=== PATIENT | female | born 1955 | race Caucasian/White ===

== ENCOUNTER → 2019-11-15 11:15 | Outpatient (CLI) | payer MEDICARE, SELFPAY ==
--- NOTE | ~2019-11-15 | CT_ITS ---
EXAMINATION: CT abdomen pelvis wo con DATE: 11/15/2019 11:41 INDICATION: Incisional hernia without obstruction or gangrene. TECHNIQUE: Computed tomography (CT) of the abdomen and pelvis was performed without intravenous contr ast. Automated exposure control and iterative reconstruction technique were employed. The dose-length product was 726.23 mGy-cm. COMPARISON: CT abdomen and pelvis 08/25/2017 FINDINGS: The visualized portions of the lung bases demonstrate emphysema and minimal atelectasis. No pleural effusion. The heart size is normal. No pericardial effusion. Calcifications in the liver and spleen are consistent with old granulomatous disease. There are changes of cholecystectomy. The panc reas, adrenal glands, and right kidney are normal. There is a 10 mm stone in left kidney with focal p arenchymal volume loss. There is diverticulosis of the colon without evidence of diverticulitis. Ther e are no dilated loops of bowel. The appendix is normal. There is diastasis of the rectus abdominis m uscles. There is a periumbilical ventral hernia containing fat. There are no pathologically enlarged lymph nodes. There is no free intraperitoneal fluid. There is mild lumbar spondylosis. IMPRESSION: 1. Periumbilical ventral hernia containing fat. Diastasis of the rectus abdominis muscles. Reviewed, dictated and finalized at location A. IMPRESSION: 1. Periumbilical ventral hernia containing fat. Diastasis of the rectus abdomin is muscles.
== END ==
PROVIDERS: PCP Family Medicine; Visit Provider Surgery
DX: K43.2 Incisional hernia without obstruction or gangrene (principal)
CPT/HCPCS: 74176

== ENCOUNTER 2020-03-06 10:09 | Outpatient (CLI) | payer MEDICARE, SELFPAY ==
[2020-03-06 10:55] LABS: Base Excess ABG 5.3 mEq/l (+/-2.0); Fractional Inspired Oxygen 28 %; HCO3 ABG 31.4 mEq/l (22.0-26.0); Oxygen Content ABG 15.6 %vol (16.0-22.0); Oxyhemoglobin 97.9 % THb (90.0-100.0); PCO2 ABG 53.7 mmHg (35.0-45.0); PO2 ABG 157.2 mmHg (80.0-100.0); PO2 FiO2 Ratio Arterial Blood 5.61 %; Total Hemoglobin 11.1 g/dL (12.0-18.0); pH ABG 7.385 (7.350-7.450)
[2020-03-06 10:56] LABS: Device NASAL CANNULA; Site Drawn RIGHT BRACHIAL
== END 2020-03-06 10:10 | disposition home or self-care (01) ==
LOC: ANHPFT 10:12
PROVIDERS: PCP Internal Medicine; Visit Provider Nurse Practitioner Family
DX: J96.11 Chronic respiratory failure with hypoxia (principal); J96.12 Chronic respiratory failure with hypercapnia
CPT/HCPCS: 36600; 82805

== ENCOUNTER → 2021-03-08 03:48 | Outpatient (CLI) | payer MEDICARE, SELFPAY ==
[2021-03-08 22:11] LABS: SARS-CoV-2 RNA PCR Positive
== END ==
PROVIDERS: PCP Internal Medicine; Visit Provider Nurse Practitioner Family
DX: U07.1 COVID-19 (principal)
CPT/HCPCS: C9803; U0003; U0005

== ENCOUNTER 2021-03-13 17:17 | Inpatient (IN) | payer MEDICARE, SELFPAY ==
[2021-03-13] VITALS (24 sets, daily range): BP systolic 127–160; BP diastolic 61–84; PULSE 93–114; RESP 11–28; TEMP 37.1–37.3; O2SAT 92–98
--- NOTE | ~2021-03-13 | XR_ITS ---
EXAMINATION: XR chest 1V portable INDICATION: Shortness of breath, COVID 19 positive TECHNIQUE: Portable AP chest at 2032 hours COMPARISON: 08/20/2018 FINDINGS: There is severe emphysema of the left lung. Patchy opacities are present in the lower lung zones which are superimposed on chronic opacities. There is no pleural effusion or pneumothorax. The cardiomediastinal silhouette is normal. There is enlargement of the main and central pulmonary arteri es, consistent with pulmonary hypertension. IMPRESSION: 1. Bibasilar airspace opacities, likely pneumonia superimposed on severe emphysema. Reviewed, dictated and finalized at location F. STANT DIRECTOR OF SECURITY IMPRESSION: 1. Bibasilar airspace opacities, likely pneumonia superimposed on severe emphys rashel.
--- NOTE | ~2021-03-13 | XR_ITS ---
XR chest 1V portable 03/16/2021 14:11 Indication: Pneumonia. Covid infection. Procedure: AP portable chest Comparison: 03/13/2021 Findings: Heart size normal. There is scarring of the upper lungs bilaterally. There is bullous emphy sema. There are bibasilar infiltrates unchanged which may represent atelectasis or pneumonia. Impression: 1: Stable bibasilar infiltrates which may represent atelectasis or pneumonia. Reviewed, dictated and finalized at location A. ICALS DISTILLER Impression: 1: Stable bibasilar infiltrates which may represent atelectasis or pneumonia.
--- NOTE | ~2021-03-13 | XR_ITS ---
EXAMINATION: XR chest 1V portable EXAM DATE: 03/21/2021 09:03 INDICATION: pneumonia . TECHNIQUE: Portable AP frontal chest x-ray was obtained. Comparison is made to prior examination from 03/16/2021. FINDINGS: Chronic lucent left lung, bullous disease. Bibasilar indistinct reticulation, moderate amou nt of ill-defined edema or pneumonia. Small subpulmonic nonloculated appearing pleural effusions. Car diomegaly. The main, central pulmonary arteries are dilated which can indicate elevated pulmonary art erial pressure, pulmonary arterial hypertension. Bilateral nodular densities, chronic regions of scar ring. No pneumothorax. There are mild bony degenerative changes. IMPRESSION: 1. Persistent moderate amount of basilar edema and/or pneumonia. 2. Cardiomegaly, small pleural effusions. 3. Pulmonary arterial hypertension. 4. Chronic scarring. Reviewed, dictated and finalized at location B. OMER OPERATIONS SPECIALIST
--- NOTE | 2021-03-13 20:22 | ECG_ITS ---
Measurements Intervals [place] Rate: 99 P: 73 RI: 147 QRS: 73 QRSD: 102 T: 80 QT: 350 QTc: 450 Interpretive Statements SINUS RHYTHM BORDERLINE ST-T WAVE ABNORMALITY- ANTEROLAT/INF LEADS BASELINE ARTIFACT- I, II, III, AVR, AVL, AVF, V3-V6 BORDERLINE ECG Electronically Signed On 03-14-2021 6:05:34 [employer]IL [employer]OUT by Rafael Ventura D.O.
[2021-03-13 21:03] LABS: Basophils Percent Auto 0.1 % (0.2-1.2); Eosinophils Percent Auto 0.2 % (0-4.4); Hematocrit 33.4 % (37.0-47.0); Hemoglobin 10.6 g/dL (12.0-15.0); Immature Granulocyte Absolute 0.09 K/mm3 (0.00-0.031); Immature Granulocyte Percent A 0.5 % (0-0.5); Lymphocytes Absolute Auto 1.84 K/mm3 (0.9-3.2); Lymphocytes Percent Auto 11.1 % (18.3-44.2); Mean Corpuscular HGB Conc 31.7 g/dl (32-36); Mean Corpuscular Hemoglobin 29.6 pg (26-34); Mean Corpuscular Volume 93.3 fl (80-100); Mean Platelet Volume 9.3 fl (7.4-10.4); Monocytes Absolute Auto 1.4 K/mm3 (0.1-0.6); Monocytes Percent Auto 8.2 % (2.6-8.5); Neutrophils Absolute Auto 13.2 K/mm3 (1.3-6.7); Neutrophils Percent Auto 79.9 % (45.5-73.1); Platelet Count Result 503 k/mm3 (150-375); Red Blood Count 3.58 M/mm3 (4.2-5.4); Red Cell Distribution Width 12.5 % (11.5-14.5); White Blood Count 16.6 K/mm3 (4.5-10.0)
[2021-03-13 21:14] LABS: Lactic Acid Reflex 0.7 mmol/L (0.7-2.1)
[2021-03-13 21:22] LABS: Alanine Aminotransferase 12 U/L (4-35); Albumin Level 4.1 g/dL (3.5-5.1); Alkaline Phosphatase 108 U/L (38-126); Aspartate Amino Transferase 23 U/L (14-36); Bilirubin,Total 0.6 mg/dL (0.2-1.3); Blood Urea Nitrogen 9 mg/dL (7-17); Calcium 9.1 mg/dL (8.4-10.2); Carbon Dioxide > 40 mmol/L (22-30); Chloride 85 mmol/L (98-107); Estimated CRCL calculation 70 ml/min; Estimated Glomerular Filt Rate > 60; Glucose 125 mg/dL (65-110); Potassium 2.6 mmol/L (3.4-5.0); Sodium 137 mmol/L (137-145)
[2021-03-13 21:46] LABS: D Dimer 0.27 ug/mL (<0.48)
--- NOTE | 2021-03-13 22:07 | ED.GENADULT ---
HPI - General Adult General Chief complaint: Shortness of Breath/Dyspnea Stated complaint: breathing Time Seen by Provider: 03/13/21 21:08 History of Present Illness HPI narrative: Patient is a 5-year-old female who presents emerged department with chief complaint of shortness of breath and cough patient reports she has history of COPD reports that she is normally on 2 L nasal cannula oxygen patient reports that she tested positive for COVID-19 on 27 February. Patient reports that over the last couple of days she has been getting more more short of breath and has been coughing more. Related Data Home Medications Medication Instructions Recorded Confirmed omeprazole 20 mg capsule,delayed 20 mg PO DAILY 02/18/19 10/11/20 release albuterol sulfate 90 mcg/actuation 1 puff INHALATION Q4H PRN 10/19/19 10/11/20 aerosol inhaler Allergies Allergy/AdvReac Type Severity Reaction Status Date / Time No Known Allergies Allergy Verified 10/11/20 13:25 Review of Systems Review of Systems: A 10 system review of systems was completed on the patient and is negative except for what is stated in the HPI. Nursing and ancillary documentation was reviewed. [facility] Past Medical History Medical History Asthma Chronic obstructive pulmonary disease with (acute) exacerbation Emphysema lung Former smoker, stopped smoking in distant past Surgical History Surgical History History of bursectomy left elbow History of laparoscopic cholecystectomy 2018 History of tubal ligation History of umbilical hernia repair 2018 History of vaginal hysterectomy Family History Family History Sibling Family history of chronic obstructive pulmonary disease Family history of malignant neoplasm of breast in first degree relative Father Family history of chronic obstructive pulmonary disease Mother Family history of chronic obstructive pulmonary disease Other Cerebrovascular accident Social History Social History Smoking status: Former smoker Smoking end date: 03/02/18 Alcohol intake: current Exam Narrative: GENERAL: Well-appearing, well-nourished, and in no acute distress. HEAD: Normocephalic, atraumatic. EYES: PERRLA and EOMI. ENT: Nares clear, no rhinorrhea or epistaxis. Mucous membranes moist. NECK: Supple. CHEST: Clear to auscultation. No respiratory distress. HEART: Regular rate and rhythm. No murmur heard. Normal peripheral pulses. ABDOMEN: Soft, nontender, nondistended, normal active bowel sounds. EXTREMITIES: Normal range of motion. No edema. SKIN: Warm, dry, no rash. NEURO: No focal deficits. Alert and oriented x3. PSYCH: Normal mood and affect. Course Vital Signs Vital signs: Vital Signs Temperature 37.1 C 03/13/21 17:21 Pulse Rate 109 H 03/13/21 17:21 Respiratory Rate 14 03/13/21 17:21 Blood Pressure 154/75 H 03/13/21 17:21 Pulse Oximetry 98 03/13/21 17:21 Temperature 37.3 C 03/13/21 20:20 Pulse Rate 102 H 03/13/21 23:30 Respiratory Rate 16 03/13/21 23:30 Blood Pressure 135/76 03/13/21 22:45 Pulse Oximetry 96 03/13/21 22:45 Medical Decision Making Vital Signs Vital Signs: Vital Signs Temperature 37.1 C 03/13/21 17:21 Pulse Rate 109 H 03/13/21 17:21 Respiratory Rate 14 03/13/21 17:21 Blood Pressure 154/75 H 03/13/21 17:21 Pulse Oximetry 98 03/13/21 17:21 Temperature 37.3 C 03/13/21 20:20 Pulse Rate 102 H 03/13/21 23:30 Respiratory Rate 16 03/13/21 23:30 Blood Pressure 135/76 03/13/21 22:45 Pulse Oximetry 96 03/13/21 22:45 Lab Data Result diagrams: 03/13/21 20:42 03/13/21 20:42 Labs: Lab Results 03/13/21 03/13/21 03/13/21 Range/Units 20:42 20:42 20:42 WBC 16.6 H (4.5-10.0) K
[2021-03-13] MEDS: POTASSIUM CHLORIDE INJ 40 MEQ in SODIUM CHLORIDE 0.9% IV 500 ML 130 MEQ IVPB (22:46)
[2021-03-13] MEDS: POTASSIUM CHLORIDE 20 MEQ TABLET 40 MEQ PO (23:06)
--- NOTE | 2021-03-13 23:25 | PC.NURSE ---
Assumed care of pt at this time, report taken from Bib SAUCEDA
[2021-03-13] MEDS: IPRATROPIUM BR 0.02% INH SOLN 0.5 MG/2.5 ML VIAL INHALATION (23:33)
[2021-03-13] MEDS: ALBUTEROL SULFATE NEB 2.5 MG/0.5 ML INH 5 MG INHALATION (23:33)
[2021-03-13 23:36] LABS: Magnesium 1.7 mg/dL (1.6-2.3)
[2021-03-13 23:43] LABS: Alveolar/Arterial O2 Gradient 53.9 mmHg; Base Excess ABG 14.8 mEq/l (+/-2.0); Fractional Inspired Oxygen 28 %; HCO3 ABG 42.3 mEq/l (22.0-26.0); Oxygen Content ABG 16.4 %vol (16.0-22.0); Oxygen Saturation ABG 92.9 % (95.0-100.0); Oxyhemoglobin 91.7 % THb (90.0-100.0); PO2 FiO2 Ratio Arterial Blood 2.39 %; Total Hemoglobin 12.7 g/dL (12.0-18.0)
[2021-03-13 23:45] LABS: Device NASAL CANNULA; Modified Allen's Test Pass; PCO2 ABG 66.7 mmHg (35.0-45.0); Site Drawn LEFT RADIAL
[2021-03-14] VITALS (17 sets, daily range): BP systolic 117–148; BP diastolic 56–81; PULSE 84–113; RESP 16–24; TEMP 36.7; O2SAT 93–97
[2021-03-14] MEDS: DEXAMETHASONE SOD PHOS INJ 4 MG/ML VIAL 6 MG IV PUSH (00:32)
--- NOTE | 2021-03-14 01:36 | PM.IMHP ---
H&P: HPI History of Present Illness Date/Time: 03/14/21 01:36 Chief Complaint: Shortness of breath Narrative: 65-year-old female with past medical history of COPD/emphysema and severe pulmonary hypertension on chronic home O2 who presents to the ER via private vehicle from home due to shortness of breath. The patient reports she began having upper respiratory symptoms with cough productive of clear sputum, low-grade fevers and intermittent diarrhea on 02/27/2021. Her significant other also developed similar symptoms with a higher fever. Her significant other symptoms improved after 5 days. She reported that on the 8 days she was having burning sensation in her upper airway similar to when she has had prior viral bronchitis. She called her doctor who ordered a COVID test in she came back as COVID positive. She reports that since she developed COVID her oxygen saturations had actually states stable on her usual 2 L nasal cannula. However, over the last 2-3 days her cough is no longer productive and she is no more short of breath with activity. She has been having marked hypoxia with activity with sats down to 75%. She reports that if she is at rest her sats are staying between 90 and 92% which is not far from her baseline. She reports that she has been having diarrhea a couple of times a day for several days. She then had resolution of her diarrhea until earlier today when she had 1 dose of watery stools. She denied having fevers over the last several days when she was in the ER her temperature measured at 99.1. She denies any nausea or vomiting. She has had decreased oral intake. She reports that meets smells a rotten and she has had significant nausea due to this. She has not had any vomiting. She denies any black or tarry stools. She denies any myalgias. She was vaccinated for COVID-19 with Pfizer vaccine. Her 2nd dose of vaccine was in April. She reports that she was scheduled to have her booster December but they had run out a doses and she had not made back to get her booster since that time. Review of Systems Review of Systems: 12 systems were reviewed with pertinent positives and negatives per HPI. Except as documented in the HPI, all other systems were reviewed and are negative. [facility] Past Medical History Medical History (Updated 03/14/21 @ 01:50 by Katty Hansen DO) Asthma Chronic obstructive pulmonary disease with (acute) exacerbation Chronic respiratory failure with hypoxia and hypercapnia On home oxygen during the day and iVAPS at night Diastolic dysfunction Echocardiogram November 2016 Emphysema lung Former smoker, stopped smoking in distant past Pulmonary hypertension Severe pulmonary hypertension with RVSP of 68 noted on echo from November 2016 Recurrent umbilical hernia Surgical History Surgical History (Updated 03/14/21 @ 01:44 by Katty Hansen DO) History of bursectomy left elbow History of laparoscopic cholecystectomy (08/2017) History of tubal ligation History of umbilical hernia repair (08/2017) History of vaginal hysterectomy Family History Family History Sibling Family history of chronic obstructive pulmonary disease Family history of malignant neoplasm of breast in first degree relative Father Family history of chronic obstructive pulmonary disease Mother Family history of chronic obstructive pulmonary disease Other Cerebrovascular accident Social History Social History (Updated 03/14/21 @ 01:48 by Katty Hansen DO) Social History: She is on disability due to her COPD. She has 2 grown children. She smoked 1 pack of cigarettes per day for 45 years but quit smoking in 2018. Primary care physician: Dr. Trenton Doyle Code status: Full code Smoking packs per day: 1 Smoking cigarettes per day: 20.0 Years smoked: 45 Smoking pack-years: 45.00 Smoking status: Former smoker Smoking e
[2021-03-14] MEDS: MAGNESIUM SULF 2 GM/WATER 50ML 2 GM/50 ML BAG IVPB (02:38)
[2021-03-14] MEDS: SODIUM CHLORIDE 0.9% IV 1,000 ML 75 ML IV CONT (02:38)
--- NOTE | 2021-03-14 02:57 | PC.NURSE ---
Dr. Hansen at bedside. Covid swab suggested by Director Of Informatics to assist with inpt. placement. Order with VO from Dr. Cox. Unable to swab with Dr. Hansen at bedside.
[2021-03-14] MEDS: ALBUTEROL SULFATE (*SP) AEROSOL 1 PUFF 4 PUFF INHALATION (03:08)
[2021-03-14 06:43] LABS: Hematocrit 32.3 % (37.0-47.0); Mean Corpuscular Hemoglobin 30.1 pg (26-34); Mean Corpuscular Volume 97.3 fl (80-100); Mean Platelet Volume 9.1 fl (7.4-10.4); Platelet Count Result 425 k/mm3 (150-375); Red Blood Count 3.32 M/mm3 (4.2-5.4); Red Cell Distribution Width 12.6 % (11.5-14.5); White Blood Count 13.6 K/mm3 (4.5-10.0)
[2021-03-14 07:00] LABS: Blood Urea Nitrogen 9 mg/dL (7-17); Calcium 8.3 mg/dL (8.4-10.2); Carbon Dioxide > 40 mmol/L (22-30); Chloride 91 mmol/L (98-107); Estimated CRCL calculation 83 ml/min; Estimated Glomerular Filt Rate > 60; Glucose 182 mg/dL (65-110); Potassium 3.2 mmol/L (3.4-5.0); Sodium 139 mmol/L (137-145)
[2021-03-14] MEDS: ALBUTEROL SULFATE (*SP) INHALER 4 PUFF INHALATION ×3 (08:14→21:22)
--- NOTE | 2021-03-14 08:39 | PC.NURSE ---
Meal tray ordered for patient. Patient requests her home medications. Hospitalists contacted regarding home medications.
[2021-03-14] MEDS: REMDESIVIR 200 MG/NS 250 ML 200 MG/250 ML BAG 250 MG IVPB (08:46)
--- NOTE | 2021-03-14 08:52 | PC.NURSE ---
Patient provided meal tray.
[2021-03-14 08:53] LABS: INR 0.9; Prothrombin Time 12.5 Seconds (11.1-14.7)
[2021-03-14 08:55] LABS: Alanine Aminotransferase 15 U/L (4-35)
[2021-03-14] MEDS: ENOXAPARIN 40 MG/0.4 ML SYRINGE SUB-Q (10:13)
[2021-03-14 10:49] LABS: Alveolar/Arterial O2 Gradient 49.7 mmHg; Base Excess ABG 11.7 mEq/l (+/-2.0); Fractional Inspired Oxygen 28 %; HCO3 ABG 38.4 mEq/l (22.0-26.0); Oxygen Content ABG 13.9 %vol (16.0-22.0); Oxygen Saturation ABG 94.9 % (95.0-100.0); Oxyhemoglobin 93.3 % THb (90.0-100.0); PO2 ABG 76.1 mmHg (80.0-100.0); PO2 FiO2 Ratio Arterial Blood 2.72 %; Total Hemoglobin 10.5 g/dL (12.0-18.0); pH ABG 7.406 (7.350-7.450)
[2021-03-14 10:50] LABS: Device NASAL CANNULA; Modified Allen's Test Pass; PCO2 ABG 62.6 mmHg (35.0-45.0); Site Drawn LEFT RADIAL
[2021-03-14] MEDS: PANTOPRAZOLE 40 MG TABLET PO ×2 (11:39→16:42)
[2021-03-14] MEDS: ROFLUMILAST 500 MCG TABLET PO (11:42)
[2021-03-14] MEDS: FLUTICASONE/UMECLIDIN/VILANTER 100-62.5-25 MCG ELLIPTA 1 PUFF INHALATION (11:43)
[2021-03-14 13:37] LABS: SARS-CoV-2 RNA PCR Positive
--- NOTE | 2021-03-14 13:43 | PC.NURSE ---
This patient, Zainab Maya, was admitted to 3 Med Surg Room 302-01. Report received from KOMAL Ballard. Patient/family oriented to hospital policies and general routines including ID bracelet, bed and alarms, visiting hours, pain management, procedures, bathroom and other care routines, personal items, smoking policy, room service/diet, and visiting hours. Information on how to activate the Rapid Response Team has been discussed. Patient/Family are encouraged to report perceived risks to care and to ask questions if they do not understand what they are told or what they should do.
[2021-03-14] MEDS: ATORVASTATIN 20 MG TABLET PO (20:31)
[2021-03-14] MEDS: ACETAMINOPHEN 325 MG TABLET 650 MG PO (23:14)
[2021-03-15] VITALS (14 sets, daily range): BP systolic 119–147; BP diastolic 62–68; PULSE 57–105; RESP 16–20; TEMP 36.1–36.9; O2SAT 90–100
[2021-03-15] MEDS: ALBUTEROL SULFATE (*SP) INHALER 4 PUFF INHALATION ×4 (02:02→20:26)
[2021-03-15 07:38] LABS: Alanine Aminotransferase 9 U/L (4-35); Estimated CRCL calculation 70 ml/min; Estimated Glomerular Filt Rate > 60
[2021-03-15] MEDS: FLUTICASONE/UMECLIDIN/VILANTER 100-62.5-25 MCG ELLIPTA 1 PUFF INHALATION (07:55)
[2021-03-15 08:03] LABS: Prothrombin Time 12.8 Seconds (11.1-14.7)
[2021-03-15 08:40] LABS: Hematocrit 28.8 % (37.0-47.0); Hemoglobin 8.9 g/dL (12.0-15.0); Mean Corpuscular HGB Conc 30.9 g/dl (32-36); Mean Corpuscular Hemoglobin 29.6 pg (26-34); Mean Corpuscular Volume 95.7 fl (80-100); Mean Platelet Volume 9.7 fl (7.4-10.4); Platelet Count Result 458 k/mm3 (150-375); Red Blood Count 3.01 M/mm3 (4.2-5.4); Red Cell Distribution Width 12.5 % (11.5-14.5); White Blood Count 9.4 K/mm3 (4.5-10.0)
[2021-03-15] MEDS: PANTOPRAZOLE 40 MG TABLET PO ×2 (08:45→16:41)
[2021-03-15] MEDS: ENOXAPARIN 40 MG/0.4 ML SYRINGE SUB-Q (08:45)
[2021-03-15] MEDS: ROFLUMILAST 500 MCG TABLET PO (08:46)
[2021-03-15] MEDS: ACETAMINOPHEN 325 MG TABLET 650 MG PO ×2 (08:55→20:31)
[2021-03-15 08:57] LABS: Blood Urea Nitrogen 14 mg/dL (7-17); Calcium 8.4 mg/dL (8.4-10.2); Carbon Dioxide > 40 mmol/L (22-30); Chloride 89 mmol/L (98-107); Estimated CRCL calculation 70 ml/min; Estimated Glomerular Filt Rate > 60; Glucose 124 mg/dL (65-110); Potassium 3.4 mmol/L (3.4-5.0); Sodium 135 mmol/L (137-145)
--- NOTE | 2021-03-15 10:00 | PM.IMPN ---
Progress Note: A&P Assessment and Plan (1) Pneumonia due to COVID-19 virus: Code(s): U07.1 - COVID-19; J12.82 - Pneumonia due to coronavirus disease 2019 Status: Acute Assessment and Plan: pneumonia on x-ray: Bibasilar airspace opacities, likely pneumonia superimposed on severe emphysema. No CTA chest was done as patient was on home O2 level of 2 L tested positive for COVID 02/27/2021. Given her persistent and/or worsening symptoms she could have a secondary bacterial pneumonia complicating her clinical course. placed on empiric antibiotic therapy with Rocephin and azithromycin. urine Legionella and strep pneumoniae antigen. due to ABG hypoxia's placed patient on Decadron and Remdesivir. Reactive platelet count increasing to viral infection, up to 458. WBC improved from 16.6 to 13.6 to 9.4 today checking ferritin, ldh, crp. (2) COPD (chronic obstructive pulmonary disease): Qualifiers: COPD type: unspecified COPD Qualified Code(s): J44.9 - Chronic obstructive pulmonary disease, unspecified Code(s): J44.9 - Chronic obstructive pulmonary disease, unspecified Status: Acute Assessment and Plan: chronic hypoxic hypercapnic respiratory failure but hypercapnia seems relatively stable compared to baseline. pneumonia on x-ray: Bibasilar airspace opacities, likely pneumonia superimposed on severe emphysema. No CTA chest was done as patient was on home O2 level of 2 L Patient may use her home trilogy. resume the patient's home inhalers when med rec is available for review. since unable to do Xopenex Nebulizer txs, add scheduled albuterol inhalers 4 puffs q.6 hours. (3) Hypokalemia: Code(s): E87.6 - Hypokalemia Status: Acute Assessment and Plan: at admission hypokalemia. 2.6 received 40 mEq IV and 40 mEq p.o. in the ER. magnesium level was borderline normal. give 2 g magnesium sulfate rider. rechecking Mag level in the morning tomorrow 03/16 K = 3.4 today, gave 20 meq KCL PO repeat labs in morning (4) Diarrhea: Code(s): R19.7 - Diarrhea, unspecified Status: Acute Assessment and Plan: Patient stated that she had a few bloody diarrhea stools around New Years day, but that the blood in her stools slowly went away. She continues to have the diarrhea but not blood. She feels that it may have been a hemorrhoid. Ordered occult stool checks. intake /output order stool cultures PRN continue to monitor (5) Iron deficiency anemia: Code(s): D50.9 - Iron deficiency anemia, unspecified Status: Acute Assessment and Plan: Anemia with H/H down to 8.9/28.8 today. anemia may also be related to diarrhea/recent episode of blood stool earlier in the month Iron panel low, ordered Venofer IV started on BID niferex dosing. CBC in morning Subjective Date/time seen: 03/15/21 10:00 Zainab concerned about her increase in oxygen today. She was under the misunderstanding that if she was on daily steroids that that would cause her oxygen requirement to increase. I sat for some time with the patient and explained what the steroids were for, that she was doing well and had only had 2 doses of IV antivirals at this point. I encouraged her to use her incentive spirometer regularly and to avoid sleeping/napping supine. I also explained how her SpO2 is not the same as her PO2 on an ABG. Her CO2 was elevated on labs, pO2 low on ABG yesterday when on 2 L NC. Patient increased to 4 L O2 NC, then in 1 hour, get ABG. Patient agreed and felt better with this plan after our discussion. Keep on 4-6 L O2 until SpO2 >95% consistently, then may wean SLOWLY by 1 L at a time. Legionella and Pneumococcal tests pending. Ordered a CXR for tomorrow morning. Anemia with H/H down to 8.9/28.8 today. Iron panel low, ordered Venofer IV and started on BID niferex dosing. Reactive platelet count increasing to viral infection, up to 458. Patient stated that she had a few bloody
[2021-03-15] MEDS: REMDESIVIR 100 MG/NS 250 ML 100 MG/250 ML BAG 250 MG IVPB (11:01)
[2021-03-15 12:59] LABS: Iron 19 ug/dL (37-170)
[2021-03-15 13:16] LABS: Percent Iron Saturation 6 % (20-50)
[2021-03-15] MEDS: IRON SUCROSE COMPLEX 200 MG in SODIUM CHLORIDE 0.9% IV 50 ML 120 MG IVPB (14:48)
[2021-03-15 16:05] LABS: Alveolar/Arterial O2 Gradient 82.6 mmHg; Fractional Inspired Oxygen 36 %; HCO3 ABG 41.9 mEq/l (22.0-26.0); Oxygen Content ABG 14.2 %vol (16.0-22.0); Oxygen Saturation ABG 97.3 % (95.0-100.0); Oxyhemoglobin 96.4 % THb (90.0-100.0); PO2 ABG 97.6 mmHg (80.0-100.0); PO2 FiO2 Ratio Arterial Blood 2.71 %; Total Hemoglobin 10.4 g/dL (12.0-18.0); pH ABG 7.421 (7.350-7.450)
[2021-03-15 16:06] LABS: Device NASAL CANNULA; Modified Allen's Test Pass; PCO2 ABG 65.9 mmHg (35.0-45.0); Site Drawn RIGHT RADIAL
[2021-03-15] MEDS: POLYSACCHARIDE IRON COMPLEX 150 MG CAPSULE PO (16:41)
[2021-03-15] MEDS: POTASSIUM CHLORIDE 10 MEQ TABLET 20 MEQ PO (16:41)
[2021-03-15] MEDS: ATORVASTATIN 20 MG TABLET PO (20:31)
[2021-03-15 23:07] LABS: IFOB Positive Control Positive; Immunochemical Fecal Occult Bl Negative (N)
[2021-03-16] VITALS (13 sets, daily range): BP systolic 113–164; BP diastolic 48–78; PULSE 85–117; RESP 16–20; TEMP 35.8–37.1; O2SAT 94–100
[2021-03-16] MEDS: ALBUTEROL SULFATE (*SP) INHALER 4 PUFF INHALATION ×4 (03:35→19:42)
[2021-03-16 06:21] LABS: Basophils Percent Auto 0.1 % (0.2-1.2); Eosinophils Percent Auto 0.1 % (0-4.4); Hematocrit 27.4 % (37.0-47.0); Hemoglobin 8.5 g/dL (12.0-15.0); Immature Granulocyte Absolute 0.06 K/mm3 (0.00-0.031); Immature Granulocyte Percent A 0.7 % (0-0.5); Lymphocytes Absolute Auto 2.08 K/mm3 (0.9-3.2); Lymphocytes Percent Auto 24.4 % (18.3-44.2); Mean Corpuscular Hemoglobin 29.8 pg (26-34); Mean Corpuscular Volume 96.1 fl (80-100); Mean Platelet Volume 9.2 fl (7.4-10.4); Monocytes Absolute Auto 0.9 K/mm3 (0.1-0.6); Monocytes Percent Auto 10.5 % (2.6-8.5); Neutrophils Absolute Auto 5.5 K/mm3 (1.3-6.7); Neutrophils Percent Auto 64.2 % (45.5-73.1); Platelet Count Result 421 k/mm3 (150-375); Red Blood Count 2.85 M/mm3 (4.2-5.4); Red Cell Distribution Width 12.5 % (11.5-14.5); White Blood Count 8.5 K/mm3 (4.5-10.0)
[2021-03-16 06:45] LABS: Prothrombin Time 12.7 Seconds (11.1-14.7)
[2021-03-16 07:04] LABS: Alanine Aminotransferase 11 U/L (4-35); Albumin Level 3.1 g/dL (3.5-5.1); Alkaline Phosphatase 63 U/L (38-126); Aspartate Amino Transferase 15 U/L (14-36); Bilirubin,Total < 0.1 mg/dL (0.2-1.3); Blood Urea Nitrogen 15 mg/dL (7-17); CRP 2.5 mg/dL (<1.0); Calcium 8.4 mg/dL (8.4-10.2); Carbon Dioxide > 40 mmol/L (22-30); Chloride 89 mmol/L (98-107); Estimated CRCL calculation 83 ml/min; Estimated Glomerular Filt Rate > 60; Glucose 105 mg/dL (65-110); Lactate Dehydrogenase 274 U/L (313-618); Magnesium 1.7 mg/dL (1.6-2.3); Potassium 2.8 mmol/L (3.4-5.0); Sodium 138 mmol/L (137-145)
[2021-03-16 07:50] LABS: Magnesium 1.7 mg/dL (1.6-2.3)
[2021-03-16] MEDS: FLUTICASONE/UMECLIDIN/VILANTER 100-62.5-25 MCG ELLIPTA 1 PUFF INHALATION (08:31)
[2021-03-16] MEDS: POTASSIUM CHLORIDE INJ 40 MEQ in SODIUM CHLORIDE 0.9% IV 500 ML 130 MEQ IVPB (08:46)
[2021-03-16] MEDS: PANTOPRAZOLE 40 MG TABLET PO ×2 (08:47→17:24)
[2021-03-16] MEDS: POLYSACCHARIDE IRON COMPLEX 150 MG CAPSULE PO ×2 (08:47→17:24)
[2021-03-16] MEDS: ROFLUMILAST 500 MCG TABLET PO (08:47)
[2021-03-16] MEDS: ENOXAPARIN 40 MG/0.4 ML SYRINGE SUB-Q (08:47)
[2021-03-16] MEDS: guaiFENesin 12 HR 600 MG TABCR 1200 MG PO ×2 (08:47→20:22)
[2021-03-16] MEDS: POTASSIUM CHLORIDE 20 MEQ TABLET 40 MEQ PO (08:48)
--- NOTE | 2021-03-16 10:24 | PM.IMPN ---
Progress Note: A&P Assessment and Plan (1) Pneumonia due to COVID-19 virus: Code(s): U07.1 - COVID-19; J12.82 - Pneumonia due to coronavirus disease 2019 Status: Acute Assessment and Plan: pneumonia on x-ray: Bibasilar airspace opacities, likely pneumonia superimposed on severe emphysema. No CTA chest was done as patient was on home O2 level of 2 L tested positive for COVID 02/27/2021. Given her persistent and/or worsening symptoms she could have a secondary bacterial pneumonia complicating her clinical course. placed on empiric antibiotic therapy with Rocephin and azithromycin. urine Legionella and strep pneumoniae antigen. due to ABG hypoxia's placed patient on Decadron and Remdesivir. Reactive platelet count increasing to viral infection, up to 458. WBC improved from 16.6 to 13.6 to 9.4 today checking ferritin, ldh, crp. (2) COPD (chronic obstructive pulmonary disease): Qualifiers: COPD type: unspecified COPD Qualified Code(s): J44.9 - Chronic obstructive pulmonary disease, unspecified Code(s): J44.9 - Chronic obstructive pulmonary disease, unspecified Status: Acute Assessment and Plan: chronic hypoxic hypercapnic respiratory failure but hypercapnia seems relatively stable compared to baseline. pneumonia on x-ray: Bibasilar airspace opacities, likely pneumonia superimposed on severe emphysema. No CTA chest was done as patient was on home O2 level of 2 L Patient may use her home trilogy. resume the patient's home inhalers when med rec is available for review. since unable to do Xopenex Nebulizer txs, add scheduled albuterol inhalers 4 puffs q.6 hours. (3) Hypokalemia: Code(s): E87.6 - Hypokalemia Status: Acute Assessment and Plan: at admission hypokalemia. 2.6 received 40 mEq IV and 40 mEq p.o. in the ER. magnesium level was borderline normal. give 2 g magnesium sulfate rider. rechecking Mag level in the morning tomorrow 03/16 K = 3.4 today, gave 20 meq KCL PO repeat labs in morning (4) Diarrhea: Code(s): R19.7 - Diarrhea, unspecified Status: Acute Assessment and Plan: Patient stated that she had a few bloody diarrhea stools around New Years day, but that the blood in her stools slowly went away. She continues to have the diarrhea but not blood. She feels that it may have been a hemorrhoid. Ordered occult stool checks. intake /output order stool cultures PRN continue to monitor (5) Iron deficiency anemia: Code(s): D50.9 - Iron deficiency anemia, unspecified Status: Acute Assessment and Plan: Anemia with H/H down to 8.9/28.8 today. anemia may also be related to diarrhea/recent episode of blood stool earlier in the month Iron panel low, ordered Venofer IV started on BID niferex dosing. CBC in morning Additional Plan 03/16/2021 Patient condition has not significantly changed overnight. Will continue with remdesivir,dexamethasone and oxygen. Monitor hemoglobin closely. Repeat chest x-ray in the morning. Subjective Date/time seen: 03/16/21 10:24 Patient was seen during the morning rounds today. Mild shortness of breath, no chest pain. No abdominal pain, nausea, no vomiting. Mood stable. Review of Systems Review of Systems: All systems reviewed & are unremarkable except as noted in HPI and below Constitutional: Constitutional: Reports as per HPI, Denies excessive sweating, Reports fatigue, Denies headache(s), Denies increased appetite, Reports lethargy, Denies snoring, Reports weakness and Denies weight gain Eyes: Eyes: Reports as per HPI, Denies exophthalmos, Denies diplopia, Denies floaters and Denies loss of peripheral vision ENT: Reports as per HPI, Denies facial pain, Denies headache(s), Denies epistaxis, Denies nasal congestion, Denies odynophagia and Denies tinnitus Cardiovascular: Cardiovascular: Reports as per HPI, Denies chest pain, Denies pedal edema, Denies leg edema, Denies lightheade
[2021-03-16] MEDS: REMDESIVIR 100 MG/NS 250 ML 100 MG/250 ML BAG 250 MG IVPB (13:18)
[2021-03-16] MEDS: ACIDOPHILUS/BULGARICUS CHEWABLE TABLET 1 TABLET PO ×3 (15:21→20:21)
[2021-03-16] MEDS: MAGNESIUM OXIDE 400 MG TABLET PO (15:22)
[2021-03-16] MEDS: ATORVASTATIN 20 MG TABLET PO (20:22)
[2021-03-17] VITALS (9 sets, daily range): BP systolic 115–141; BP diastolic 56–68; PULSE 78–103; RESP 14–20; TEMP 36.3–36.8; O2SAT 94–100
[2021-03-17 06:26] LABS: Basophils Percent Auto 0.2 % (0.2-1.2); Eosinophils Percent Auto 0.4 % (0-4.4); Hematocrit 28.2 % (37.0-47.0); Hemoglobin 8.6 g/dL (12.0-15.0); Immature Granulocyte Absolute 0.06 K/mm3 (0.00-0.031); Immature Granulocyte Percent A 0.6 % (0-0.5); Lymphocytes Absolute Auto 2.27 K/mm3 (0.9-3.2); Lymphocytes Percent Auto 23.9 % (18.3-44.2); Mean Corpuscular HGB Conc 30.5 g/dl (32-36); Mean Corpuscular Hemoglobin 29.5 pg (26-34); Mean Corpuscular Volume 96.6 fl (80-100); Mean Platelet Volume 9.5 fl (7.4-10.4); Monocytes Percent Auto 10.4 % (2.6-8.5); Neutrophils Absolute Auto 6.1 K/mm3 (1.3-6.7); Neutrophils Percent Auto 64.5 % (45.5-73.1); Platelet Count Result 460 k/mm3 (150-375); Red Blood Count 2.92 M/mm3 (4.2-5.4); Red Cell Distribution Width 12.7 % (11.5-14.5); White Blood Count 9.5 K/mm3 (4.5-10.0)
[2021-03-17 06:45] LABS: Alanine Aminotransferase 10 U/L (4-35); Alkaline Phosphatase 69 U/L (38-126); Aspartate Amino Transferase 18 U/L (14-36); Bilirubin,Total 0.2 mg/dL (0.2-1.3); Blood Urea Nitrogen 15 mg/dL (7-17); CRP 1.9 mg/dL (<1.0); Calcium 8.3 mg/dL (8.4-10.2); Carbon Dioxide > 40 mmol/L (22-30); Chloride 91 mmol/L (98-107); Estimated CRCL calculation 83 ml/min; Estimated Glomerular Filt Rate > 60; Glucose 104 mg/dL (65-110); Magnesium 1.5 mg/dL (1.6-2.3); Potassium 3.2 mmol/L (3.4-5.0); Sodium 136 mmol/L (137-145)
[2021-03-17 06:48] LABS: INR 0.9; Prothrombin Time 11.6 Seconds (11.1-14.7)
[2021-03-17 08:28] LABS: Lactate Dehydrogenase 348 U/L (313-618)
[2021-03-17] MEDS: MAGNESIUM OXIDE 400 MG TABLET PO (08:54)
[2021-03-17] MEDS: ROFLUMILAST 500 MCG TABLET PO (08:54)
[2021-03-17] MEDS: POLYSACCHARIDE IRON COMPLEX 150 MG CAPSULE PO ×2 (08:54→16:32)
[2021-03-17] MEDS: PANTOPRAZOLE 40 MG TABLET PO ×2 (08:54→16:32)
[2021-03-17] MEDS: guaiFENesin 12 HR 600 MG TABCR 1200 MG PO (08:54)
[2021-03-17] MEDS: ACIDOPHILUS/BULGARICUS CHEWABLE TABLET 1 TABLET PO ×4 (08:54→20:00)
[2021-03-17] MEDS: ENOXAPARIN 40 MG/0.4 ML SYRINGE SUB-Q (08:55)
[2021-03-17] MEDS: ACETAMINOPHEN 325 MG TABLET 650 MG PO (09:02)
[2021-03-17] MEDS: FLUTICASONE/UMECLIDIN/VILANTER 100-62.5-25 MCG ELLIPTA 1 PUFF INHALATION (09:05)
[2021-03-17] MEDS: ALBUTEROL SULFATE (*SP) INHALER 4 PUFF INHALATION ×3 (09:06→20:22)
[2021-03-17] MEDS: REMDESIVIR 100 MG/NS 250 ML 100 MG/250 ML BAG 250 MG IVPB (10:56)
--- NOTE | 2021-03-17 14:14 | PM.IMPN ---
Progress Note: A&P Assessment and Plan (1) Pneumonia due to COVID-19 virus: Code(s): U07.1 - COVID-19; J12.82 - Pneumonia due to coronavirus disease 2019 Status: Acute Assessment and Plan: interval history pneumonia on x-ray: Bibasilar airspace opacities, likely pneumonia superimposed on severe emphysema. No CTA chest was done as patient was on home O2 level of 2 L tested positive for COVID 02/27/2021. Given her persistent and/or worsening symptoms she could have a secondary bacterial pneumonia complicating her clinical course. placed on empiric antibiotic therapy with Rocephin and azithromycin. urine Legionella and strep pneumoniae antigen. due to ABG hypoxia's placed patient on Decadron and Remdesivir. Cxr reviwed continue to wean off oxygen possible DC in 1-2 days time (2) COPD (chronic obstructive pulmonary disease): Qualifiers: COPD type: unspecified COPD Qualified Code(s): J44.9 - Chronic obstructive pulmonary disease, unspecified Code(s): J44.9 - Chronic obstructive pulmonary disease, unspecified Status: Acute Assessment and Plan: interval history chronic hypoxic hypercapnic respiratory failure but hypercapnia seems relatively stable compared to baseline. pneumonia on x-ray: Bibasilar airspace opacities, likely pneumonia superimposed on severe emphysema. No CTA chest was done as patient was on home O2 level of 2 L Patient may use her home trilogy. resume the patient's home inhalers when med rec is available for review. dc when back to baseline 2 liters of oxygen (3) Hypokalemia: Code(s): E87.6 - Hypokalemia Status: Acute Assessment and Plan: on admission hypokalemia. 2.6 potassium 3.2 today cont to replace (4) Diarrhea: Code(s): R19.7 - Diarrhea, unspecified Status: Acute Assessment and Plan: Patient stated that she had a few bloody diarrhea stools around New Years day, but that the blood in her stools slowly went away. await stool cultures add imodium (5) Iron deficiency anemia: Code(s): D50.9 - Iron deficiency anemia, unspecified Status: Acute Assessment and Plan: Anemia Hb is 8.6 today started on BID niferex dosing. Subjective Date/time seen: 03/17/21 14:14 Interval history: 65-year-old female with past medical history of COPD/emphysema and severe pulmonary hypertension on chronic home O2 who presents to the ER via private vehicle from home due to shortness of breath.Pt is doing better on remdesivir and steroids. Pt is on 3 liters of oxygen. Pt complains of mild SOB and diarrhea not watery but frequent. Review of Systems Review of Systems: All systems reviewed & are unremarkable except as noted in HPI and below Exam Const: General: cooperative, tired appearing and other (on 3 liters of oxygen ) Nutritional Appearance: overweight Orientation/consciousness: oriented to person HENMT: Head: normal to inspection Resp: Effort & Inspection: no respiratory distress Auscultation: no rhonchi and no wheezes Cardio: Rate: regular rate Rhythm: regular rhythm GI: Inspection: normal to inspection GI Palp: No abdominal tenderness, No Guarding due to palpation present (GI) and No Hepatomegaly present Auscultation: normal bowel sounds Neuro: General: oriented to person Objective Data Vital Signs Vital Signs: Vital Signs - 24 hr 03/16/21 16:00 03/16/21 19:54 03/16/21 20:00 Temperature 37.1 C 36.9 C Pulse Rate 95 88 Respiratory Rate 18 18 Blood Pressure 126/54 L 151/71 H Pulse Oximetry 100 95 95 03/16/21 23:49 03/17/21 00:31 03/17/21 04:00 Temperature 36.6 C 36.3 C L Pulse Rate 92 92 88 Respiratory Rate 16 18 Blood Pressure 133/63 115/56 L Pulse Oximetry 97 94 96 03/17/21 08:00 03/17/21 08:55 03/17/21 12:00 Temperature 36.6 C 36.6 C Pulse Rate 94 92 Respiratory Rate 14 14 Blood Pressure 137/64 122/67 Pulse Oximetry 99 97 100 Intake/Output Inta
[2021-03-17] MEDS: LOPERAMIDE HCL 2 MG CAPSULE PO (16:34)
[2021-03-17] MEDS: ATORVASTATIN 20 MG TABLET PO (20:00)
[2021-03-18] VITALS (9 sets, daily range): BP systolic 112–156; BP diastolic 51–71; PULSE 70–100; RESP 18–20; TEMP 36.6–36.8; O2SAT 92–100
--- NOTE | 2021-03-18 03:10 | PCRCNOTE ---
Patient refused 0200 MDI treatment due to being on home AVAPs unit. Patient dons and removes home AVAPs unit by herself.
[2021-03-18 06:03] LABS: Hematocrit 27.7 % (37.0-47.0); Hemoglobin 8.5 g/dL (12.0-15.0); Mean Corpuscular HGB Conc 30.7 g/dl (32-36); Mean Corpuscular Hemoglobin 29.4 pg (26-34); Mean Corpuscular Volume 95.8 fl (80-100); Mean Platelet Volume 9.3 fl (7.4-10.4); Platelet Count Result 458 k/mm3 (150-375); Red Blood Count 2.89 M/mm3 (4.2-5.4); Red Cell Distribution Width 12.5 % (11.5-14.5); White Blood Count 10.1 K/mm3 (4.5-10.0)
[2021-03-18 06:12] LABS: INR 0.9; Prothrombin Time 12.1 Seconds (11.1-14.7)
[2021-03-18 06:22] LABS: CRP 1.5 mg/dL (<1.0); Lactate Dehydrogenase 339 U/L (313-618)
[2021-03-18 06:28] LABS: Blood Urea Nitrogen 13 mg/dL (7-17); Carbon Dioxide > 40 mmol/L (22-30); Chloride 88 mmol/L (98-107); Estimated CRCL calculation 83 ml/min; Estimated Glomerular Filt Rate > 60; Glucose 98 mg/dL (65-110); Sodium 134 mmol/L (137-145)
[2021-03-18 07:52] LABS: Alanine Aminotransferase 15 U/L (4-35); Albumin Level 2.9 g/dL (3.5-5.1); Alkaline Phosphatase 83 U/L (38-126); Aspartate Amino Transferase 28 U/L (14-36); Bilirubin,Total 0.2 mg/dL (0.2-1.3); Blood Urea Nitrogen 13 mg/dL (7-17); Carbon Dioxide > 40 mmol/L (22-30); Chloride 88 mmol/L (98-107); Estimated CRCL calculation 83 ml/min; Estimated Glomerular Filt Rate > 60; Glucose 100 mg/dL (65-110); Potassium 3.1 mmol/L (3.4-5.0); Sodium 136 mmol/L (137-145)
[2021-03-18] MEDS: FLUTICASONE/UMECLIDIN/VILANTER 100-62.5-25 MCG ELLIPTA 1 PUFF INHALATION (07:53)
[2021-03-18] MEDS: ALBUTEROL SULFATE (*SP) INHALER 4 PUFF INHALATION ×3 (07:53→20:54)
[2021-03-18] MEDS: guaiFENesin 12 HR 600 MG TABCR 1200 MG PO (09:21)
[2021-03-18] MEDS: ENOXAPARIN 40 MG/0.4 ML SYRINGE SUB-Q (09:21)
[2021-03-18] MEDS: POLYSACCHARIDE IRON COMPLEX 150 MG CAPSULE PO ×2 (09:21→16:17)
[2021-03-18] MEDS: MAGNESIUM OXIDE 400 MG TABLET PO (09:21)
[2021-03-18] MEDS: ROFLUMILAST 500 MCG TABLET PO (09:21)
[2021-03-18] MEDS: PANTOPRAZOLE 40 MG TABLET PO ×2 (09:21→16:18)
[2021-03-18] MEDS: ACIDOPHILUS/BULGARICUS CHEWABLE TABLET 1 TABLET PO ×4 (09:21→20:10)
[2021-03-18] MEDS: POTASSIUM CHLORIDE 20 MEQ PACKET (FOR LIQUID) 40 MEQ PO (09:21)
[2021-03-18] MEDS: REMDESIVIR 100 MG/NS 250 ML 100 MG/250 ML BAG 250 MG IVPB (11:42)
[2021-03-18] MEDS: ACETAMINOPHEN 325 MG TABLET 650 MG PO (13:08)
--- NOTE | 2021-03-18 14:00 | PM.IMPN ---
Progress Note: A&P Assessment and Plan (1) Pneumonia due to COVID-19 virus: Code(s): U07.1 - COVID-19; J12.82 - Pneumonia due to coronavirus disease 2019 Status: Acute Assessment and Plan: x-ray: Bibasilar airspace opacities, likely pneumonia superimposed on severe emphysema. No CTA chest was done as patient was on home O2 level of 2 L tested positive for COVID 02/27/2021. Given her persistent and/or worsening symptoms she could have a secondary bacterial pneumonia complicating her clinical course. placed on empiric antibiotic therapy with Rocephin and azithromycin. urine Legionella and strep pneumoniae antigen pending due to ABG hypoxia's placed patient on Decadron and Remdesivir. Cxr reviwed continue to wean off oxygen Get inflammatory markers in the am (2) COPD (chronic obstructive pulmonary disease): Qualifiers: COPD type: unspecified COPD Qualified Code(s): J44.9 - Chronic obstructive pulmonary disease, unspecified Code(s): J44.9 - Chronic obstructive pulmonary disease, unspecified Status: Acute Assessment and Plan: chronic hypoxic hypercapnic respiratory failure but hypercapnia seems relatively stable compared to baseline. pneumonia on x-ray: Bibasilar airspace opacities, likely pneumonia superimposed on severe emphysema. No CTA chest was done as patient was on home O2 level of 2 L Patient may use her home CPAP resume the patient's home inhalers when med rec is available for review. dc when back to baseline 2 liters of oxygen (3) Hypokalemia: Code(s): E87.6 - Hypokalemia Status: Acute Assessment and Plan: on admission hypokalemia. 2.6 potassium 3.0 today cont to replace (4) Diarrhea: Code(s): R19.7 - Diarrhea, unspecified Status: Acute Assessment and Plan: Patient stated that she had a few bloody diarrhea stools around New Years day, but that the blood in her stools slowly went away. await stool cultures add imodium (5) Iron deficiency anemia: Code(s): D50.9 - Iron deficiency anemia, unspecified Status: Acute Assessment and Plan: Anemia Hb is 8.5 today started on BID niferex dosing. Time Spent With Patient Time with patient: 25 - 35 minutes Subjective Date/time seen: 03/18/21 14:00 Interval history: 03/17/21 65-year-old female with past medical history of COPD/emphysema and severe pulmonary hypertension on chronic home O2 who presents to the ER via private vehicle from home due to shortness of breath.Pt is doing better on remdesivir and steroids. Pt is on 3 liters of oxygen. Pt complains of mild SOB and diarrhea not watery but frequent. 03/18/21 1400 Patient was lying in bed. She did get up when I walked in the room. She stated that she was having hard time keeping her oxygen saturations above 90%. She did states she does not feel like his CPAP is given her enough air. She stated that moving is a lot harder for her to breathe. She does use 2 L of oxygen at home and sats about 88-90%. She does have an increased cough which she says is yellow she is very weak however she is able to walk to the bathroom when she gets the bathroom she is about 71%. Talked to Dr. Altman who said to get her a different machine for hospital stay. She also mentioned that the patient will need a new oxygen prescription and possibly set settings on her CPAP and readjust again in a week or 2 post discharge. Patient denies chest pain, nausea, vomiting, diarrhea, constipation,fatigue. Review of Systems Review of Systems: All systems reviewed & are unremarkable except as noted in HPI and below Exam Const: General: cooperative, tired appearing and other (on 3 liters of oxygen ); No confusion Nutritional Appearance: overweight Orientation/consciousness: oriented to person and No confusion Limitations: no limitations HENMT: Head: normal to inspection Ears: hearing grossly normal bilaterally General nose exam:
[2021-03-18] MEDS: POTASSIUM CHLORIDE 20 MEQ TABLET 40 MEQ PO (17:42)
[2021-03-18] MEDS: ATORVASTATIN 20 MG TABLET PO (20:09)
[2021-03-19] VITALS (11 sets, daily range): BP systolic 113–143; BP diastolic 44–71; PULSE 88–102; RESP 16–18; TEMP 36.2–37.6; O2SAT 94–98
--- NOTE | 2021-03-19 00:14 | PCRCNOTE ---
RT talked to PT. about the hospitals CPAP available and pt. refused to use in house CPAP, she wanted to continue with home setting CPAP
[2021-03-19] MEDS: ALBUTEROL SULFATE (*SP) INHALER 4 PUFF INHALATION ×4 (01:36→20:09)
[2021-03-19 06:22] LABS: Basophils Percent Auto 0.2 % (0.2-1.2); Eosinophils Absolute Auto 0.1 K/mm3 (0-0.3); Eosinophils Percent Auto 0.6 % (0-4.4); Hematocrit 28.7 % (37.0-47.0); Hemoglobin 8.9 g/dL (12.0-15.0); Immature Granulocyte Absolute 0.13 K/mm3 (0.00-0.031); Immature Granulocyte Percent A 1.2 % (0-0.5); Lymphocytes Absolute Auto 1.65 K/mm3 (0.9-3.2); Lymphocytes Percent Auto 14.9 % (18.3-44.2); Mean Corpuscular Hemoglobin 30.2 pg (26-34); Mean Corpuscular Volume 97.3 fl (80-100); Monocytes Percent Auto 8.8 % (2.6-8.5); Neutrophils Absolute Auto 8.2 K/mm3 (1.3-6.7); Neutrophils Percent Auto 74.3 % (45.5-73.1); Platelet Count Result 463 k/mm3 (150-375); Red Blood Count 2.95 M/mm3 (4.2-5.4); White Blood Count 11.1 K/mm3 (4.5-10.0)
[2021-03-19 07:01] LABS: Alanine Aminotransferase 23 U/L (4-35); Albumin Level 3.2 g/dL (3.5-5.1); Alkaline Phosphatase 58 U/L (38-126); Aspartate Amino Transferase 34 U/L (14-36); Bilirubin,Total 0.4 mg/dL (0.2-1.3); Blood Urea Nitrogen 16 mg/dL (7-17); Calcium 8.6 mg/dL (8.4-10.2); Carbon Dioxide > 40 mmol/L (22-30); Chloride 89 mmol/L (98-107); Estimated CRCL calculation 101 ml/min; Estimated Glomerular Filt Rate > 60; Glucose 96 mg/dL (65-110); Lactate Dehydrogenase 653 U/L (313-618); Magnesium 1.5 mg/dL (1.6-2.3); Potassium 4.4 mmol/L (3.4-5.0); Sodium 134 mmol/L (137-145)
[2021-03-19 07:02] LABS: D Dimer < 0.22 ug/mL (<0.48)
--- NOTE | 2021-03-19 08:00 | PM.IMPN ---
Progress Note: A&P Assessment and Plan (1) Pneumonia due to COVID-19 virus: Code(s): U07.1 - COVID-19; J12.82 - Pneumonia due to coronavirus disease 2019 Status: Acute Assessment and Plan: x-ray: Bibasilar airspace opacities, likely pneumonia superimposed on severe emphysema. No CTA chest was done as patient was on home O2 level of 2 L tested positive for COVID 02/27/2021. Given her persistent and/or worsening symptoms she could have a secondary bacterial pneumonia complicating her clinical course. placed on empiric antibiotic therapy with Rocephin and azithromycin. urine Legionella and strep pneumoniae antigen pending Sputum culture: no growth due to ABG hypoxia's placed patient on Decadron and Remdesivir. Cxr: Stable bibasilar infiltrates which may represent atelectasis or pneumonia. continue to wean off oxygen Get inflammatory markers: Dimer <0.22, Ferritin 158, LDH 653, CRP 1.0 (2) COPD (chronic obstructive pulmonary disease): Qualifiers: COPD type: unspecified COPD Qualified Code(s): J44.9 - Chronic obstructive pulmonary disease, unspecified Code(s): J44.9 - Chronic obstructive pulmonary disease, unspecified Status: Acute Assessment and Plan: chronic hypoxic hypercapnic respiratory failure but hypercapnia seems relatively stable compared to baseline. pneumonia on x-ray: Bibasilar airspace opacities, likely pneumonia superimposed on severe emphysema. No CTA chest was done as patient was on home O2 level of 2 L Patient may use her home CPAP resume the patient's home inhalers when med rec is available for review. dc when back to baseline 2 liters of oxygen Resp is reaching out the the company that can adjust her machine and will follow up with adjustments that are needed. (3) Hypokalemia: Code(s): E87.6 - Hypokalemia Status: Acute Assessment and Plan: on admission hypokalemia 2.6 potassium 4.4 today cont to replace (4) Diarrhea: Code(s): R19.7 - Diarrhea, unspecified Status: Acute Assessment and Plan: few bloody diarrhea stools around New Years day, await stool cultures add Imodium Says the blood in her stool, is from her hemorrhoids Add PRN senna and miralax (5) Iron deficiency anemia: Code(s): D50.9 - Iron deficiency anemia, unspecified Status: Acute Assessment and Plan: Anemia Hb is 8.9/28.7 today Iron: 19, TIBC 319, % sat 6, Ferritin 158 started on BID niferex dosing (6) Hypomagnesemia: Code(s): E83.42 - Hypomagnesemia Status: Acute Assessment and Plan: Mag 1.5 Replace with 4 gm Trend mag replace as indicated Time Spent With Patient Time with patient: Greater than 35 minutes Subjective Date/time seen: 03/19/21 0800 Interval history: 03/17/21 65-year-old female with past medical history of COPD/emphysema and severe pulmonary hypertension on chronic home O2 who presents to the ER via private vehicle from home due to shortness of breath.Pt is doing better on remdesivir and steroids. Pt is on 3 liters of oxygen. Pt complains of mild SOB and diarrhea not watery but frequent. 03/18/21 1400 Patient was lying in bed. She did get up when I walked in the room. She stated that she was having hard time keeping her oxygen saturations above 90%. She did states she does not feel like his CPAP is given her enough air. She stated that moving is a lot harder for her to breathe. She does use 2 L of oxygen at home and sats about 88-90%. She does have an increased cough which she says is yellow she is very weak however she is able to walk to the bathroom when she gets the bathroom she is about 71%. Talked to Dr. Altman who said to get her a different machine for hospital stay. She also mentioned that the patient will need a new oxygen prescription and possibly set settings on her CPAP and readjust again in a week or
--- NOTE | 2021-03-19 08:00 | P.PNIM_ITS ---
Progress Note: A&P Assessment and Plan (1) Pneumonia due to COVID-19 virus: Code(s): U07.1 - COVID-19; J12.82 - Pneumonia due to coronavirus disease 2019 Status: Acute Assessment and Plan: * x-ray: Bibasilar airspace opacities, likely pneumonia superimposed on severe emphysema. * No CTA chest was done as patient was on home O2 level of 2 L * tested positive for COVID 02/27/2021. * Given her persistent and/or worsening symptoms she could have a secondary bacterial pneumonia complicating her clinical course. * placed on empiric antibiotic therapy with Rocephin and azithromycin. * urine Legionella and strep pneumoniae antigen pending * Sputum culture: no growth * due to ABG hypoxia's placed patient on Decadron and Remdesivir. * Cxr: Stable bibasilar infiltrates which may represent atelectasis or pneumon ia. * continue to wean off oxygen * Get inflammatory markers: Dimer <0.22, Ferritin 158, LDH 653, CRP 1.0 (2) COPD (chronic obstructive pulmonary disease): Qualifiers: COPD type: unspecified COPD Qualified Code(s): J44.9 - Chronic obstructive pulmonary disease, unspecified Code(s): J44.9 - Chronic obstructive pulmonary disease, unspecified Status: Acute Assessment and Plan: * chronic hypoxic hypercapnic respiratory failure but hypercapnia seems relatively stable compared to baseline. * pneumonia on x-ray: Bibasilar airspace opacities, likely pneumonia superimposed on severe emphysema. * No CTA chest was done as patient was on home O2 level of 2 L * Patient may use her home CPAP * resume the patient's home inhalers when med rec is available for review. * dc when back to baseline 2 liters of oxygen * Resp is reaching out the the company that can adjust her machine and will follow up with adjustments that are needed. (3) Hypokalemia: Code(s): E87.6 - Hypokalemia Status: Acute Assessment and Plan: * on admission hypokalemia 2.6 * potassium 4.4 today * cont to replace (4) Diarrhea: Code(s): R19.7 - Diarrhea, unspecified Status: Acute Assessment and Plan: * few bloody diarrhea stools around New Years day, * await stool cultures * add Imodium * Says the blood in her stool, is from her hemorrhoids * Add PRN senna and miralax (5) Iron deficiency anemia: Code(s): D50.9 - Iron deficiency anemia, unspecified Status: Acute Assessment and Plan: * Anemia * Hb is 8.9/28.7 today * Iron: 19, TIBC 319, % sat 6, Ferritin 158 * started on BID niferex dosing (6) Hypomagnesemia: Code(s): E83.42 - Hypomagnesemia Status: Acute Assessment and Plan: * Mag 1.5 * Replace with 4 gm * Trend mag * replace as indicated Time Spent With Patient Time with patient: Greater than 35 minutes Subjective Date/time seen: 03/19/21 0800 Interval history: 03/17/21 65-year-old female with past medical history of COPD/emphysema and severe pulmon nino hypertension on chronic home O2 who presents to the ER via private vehicle from home due to shortness of breath.Pt is doing better on remdesivir and steroids. Pt is on 3 liters of oxygen. Pt complains of mild SOB and diarrhea not watery but frequent. 03/18/21 1400 Patient was lying in bed. She did get up when I walked in the room. She stated that she was having hard time keeping her oxygen saturations above 90%. She did states she does not feel like his CPAP is given her enough air. She stated that
[2021-03-19] MEDS: FLUTICASONE/UMECLIDIN/VILANTER 100-62.5-25 MCG ELLIPTA 1 PUFF INHALATION (08:21)
[2021-03-19 08:29] LABS: Prothrombin Time 12.7 Seconds (11.1-14.7)
--- NOTE | 2021-03-19 08:42 | PCOTNOTE ---
Attempted to see patient this am, however patient declined stating Not right now. I don't feel good. I feel like crap. I'm only sitting up, because I'm waiting for my food. I just want to eat and lay back down. Notified RN of patient request for Tylenol.
[2021-03-19] MEDS: ROFLUMILAST 500 MCG TABLET PO (09:54)
[2021-03-19] MEDS: PANTOPRAZOLE 40 MG TABLET PO ×2 (09:54→15:59)
[2021-03-19] MEDS: ENOXAPARIN 40 MG/0.4 ML SYRINGE SUB-Q (09:54)
[2021-03-19] MEDS: ACIDOPHILUS/BULGARICUS CHEWABLE TABLET 1 TABLET PO ×4 (09:54→21:04)
[2021-03-19] MEDS: POLYSACCHARIDE IRON COMPLEX 150 MG CAPSULE PO ×2 (09:54→15:59)
[2021-03-19] MEDS: MAGNESIUM OXIDE 400 MG TABLET PO (09:54)
[2021-03-19] MEDS: guaiFENesin 12 HR 600 MG TABCR 1200 MG PO (09:55)
[2021-03-19] MEDS: LOPERAMIDE HCL 2 MG CAPSULE PO (09:57)
[2021-03-19] MEDS: REMDESIVIR 100 MG/NS 250 ML 100 MG/250 ML BAG 250 MG IVPB (10:54)
[2021-03-19 11:26] LABS: NT Pro B Type Natriuretic Pept 351 pg/mL (5-100)
[2021-03-19] MEDS: MAGNESIUM SULF 4 GM/WATER100ML 4 GM/100 ML BAG IVPB (11:55)
[2021-03-19] MEDS: ACETAMINOPHEN 325 MG TABLET 650 MG PO (16:21)
[2021-03-19 18:32] LABS: Pneumococcal Antigen Urine Not Detected (Not Detected)
[2021-03-19] MEDS: ATORVASTATIN 20 MG TABLET PO (21:04)
[2021-03-20] VITALS (8 sets, daily range): BP systolic 104–123; BP diastolic 36–68; PULSE 89–107; RESP 18; TEMP 36.5–37.1; O2SAT 95–97
[2021-03-20 01:40] LABS: Legionella pneumophila Ag Ur Not Detected (Not Detected)
[2021-03-20] MEDS: ALBUTEROL SULFATE (*SP) INHALER 4 PUFF INHALATION ×4 (04:21→20:01)
--- NOTE | 2021-03-20 07:15 | P.PNIM_ITS ---
Progress Note: A&P Assessment and Plan (1) Pneumonia due to COVID-19 virus: Code(s): U07.1 - COVID-19; J12.82 - Pneumonia due to coronavirus disease 2019 Status: Acute Assessment and Plan: * x-ray: Bibasilar airspace opacities, likely pneumonia superimposed on severe emphysema. (03/16/21) * No CTA chest was done as patient was on home O2 level of 2 L * tested positive for COVID 04/01/21 symptoms started and 03/08/21 when she had the positive test * Given her persistent and/or worsening symptoms she could have a secondary bacterial pneumonia complicating her clinical course. * placed on empiric antibiotic therapy with Rocephin and azithromycin. Day 6, probably could be DC'd at this time * urine Legionella and strep pneumoniae antigen pending * Sputum culture: no growth * due to ABG hypoxia's placed patient on Decadron and Remdesivir. * Cxr: Stable bibasilar infiltrates which may represent atelectasis or pneumonia. * continue to wean off oxygen * Get inflammatory markers: Dimer <0.22, Ferritin 158, LDH 653, CRP 1.0 (2) COPD (chronic obstructive pulmonary disease): Qualifiers: COPD type: unspecified COPD Qualified Code(s): J44.9 - Chronic obstructive pulmonary disease, unspecified Code(s): J44.9 - Chronic obstructive pulmonary disease, unspecified Status: Acute Assessment and Plan: * chronic hypoxic hypercapnic respiratory failure but hypercapnia seems relatively stable compared to baseline. * pneumonia on x-ray: Bibasilar airspace opacities, likely pneumonia superimposed on severe emphysema. * No CTA chest was done as patient was on home O2 level of 2 L * Patient may use her home CPAP, change settings to match hospital settings. * resume the patient's home inhalers when med rec is available for review. * dc when back to baseline 2 liters of oxygen * Resp is reaching out to the company that can adjust her machine and will follow up with adjustments that are needed. (3) Hypokalemia: Code(s): E87.6 - Hypokalemia Status: Acute Assessment and Plan: * on admission hypokalemia 2.6 * potassium 3.6 today * 40mg PO daily scheduled * cont to replace (4) Diarrhea: Code(s): R19.7 - Diarrhea, unspecified Status: Acute Assessment and Plan: * few bloody diarrhea stools around , * await stool cultures, all negative * add Imodium * Says the blood in her stool, is from her hemorrhoids * Add PRN senna and miralax (5) Iron deficiency anemia: Code(s): D50.9 - Iron deficiency anemia, unspecified Status: Acute Assessment and Plan: * Anemia * Hb is 8.7/27.4 today * Iron: 19, TIBC 319, % sat 6, Ferritin 158 * started on BID niferex dosing (6) Hypomagnesemia: Code(s): E83.42 - Hypomagnesemia Status: Acute Assessment and Plan: * Mag 2.32 * Trend mag * replace as indicated Additional Plan Talked to Barbara Thorne from [facility] about changing home settings so that patient can be DC'd tomorrow. Was told that she needed to verify this with Dr. Altman, even though Dr. Altman told me to handle it this way. Will make the follow up appointment with the pulm office for 2-3 weeks. Time Spent With Patient Time with patient: Greater than 35 minutes Subjective Date/time seen: 03/20/21 07:15 Interval history: 03/17/21 65-year-old female with past medical history of COPD/emphysema and severe pulmonary hypertension on chronic home O2
--- NOTE | 2021-03-20 07:15 | PM.IMPN ---
Progress Note: A&P Assessment and Plan (1) Pneumonia due to COVID-19 virus: Code(s): U07.1 - COVID-19; J12.82 - Pneumonia due to coronavirus disease 2019 Status: Acute Assessment and Plan: x-ray: Bibasilar airspace opacities, likely pneumonia superimposed on severe emphysema. (03/16/21) No CTA chest was done as patient was on home O2 level of 2 L tested positive for COVID 04/01/21 symptoms started and 03/08/21 when she had the positive test Given her persistent and/or worsening symptoms she could have a secondary bacterial pneumonia complicating her clinical course. placed on empiric antibiotic therapy with Rocephin and azithromycin. Day 6, probably could be DC'd at this time urine Legionella and strep pneumoniae antigen pending Sputum culture: no growth due to ABG hypoxia's placed patient on Decadron and Remdesivir. Cxr: Stable bibasilar infiltrates which may represent atelectasis or pneumonia. continue to wean off oxygen Get inflammatory markers: Dimer <0.22, Ferritin 158, LDH 653, CRP 1.0 (2) COPD (chronic obstructive pulmonary disease): Qualifiers: COPD type: unspecified COPD Qualified Code(s): J44.9 - Chronic obstructive pulmonary disease, unspecified Code(s): J44.9 - Chronic obstructive pulmonary disease, unspecified Status: Acute Assessment and Plan: chronic hypoxic hypercapnic respiratory failure but hypercapnia seems relatively stable compared to baseline. pneumonia on x-ray: Bibasilar airspace opacities, likely pneumonia superimposed on severe emphysema. No CTA chest was done as patient was on home O2 level of 2 L Patient may use her home CPAP, change settings to match hospital settings. resume the patient's home inhalers when med rec is available for review. dc when back to baseline 2 liters of oxygen Resp is reaching out to the company that can adjust her machine and will follow up with adjustments that are needed. (3) Hypokalemia: Code(s): E87.6 - Hypokalemia Status: Acute Assessment and Plan: on admission hypokalemia 2.6 potassium 3.6 today 40mg PO daily scheduled cont to replace (4) Diarrhea: Code(s): R19.7 - Diarrhea, unspecified Status: Acute Assessment and Plan: few bloody diarrhea stools around New Years day, await stool cultures, all negative add Imodium Says the blood in her stool, is from her hemorrhoids Add PRN senna and miralax (5) Iron deficiency anemia: Code(s): D50.9 - Iron deficiency anemia, unspecified Status: Acute Assessment and Plan: Anemia Hb is 8.7/27.4 today Iron: 19, TIBC 319, % sat 6, Ferritin 158 started on BID niferex dosing (6) Hypomagnesemia: Code(s): E83.42 - Hypomagnesemia Status: Acute Assessment and Plan: Mag 2.32 Trend mag replace as indicated Additional Plan Talked to Barbara Thorne from [facility] about changing home settings so that patient can be DC'd tomorrow. Was told that she needed to verify this with Dr. Altman, even though Dr. Altman told me to handle it this way. Will make the follow up appointment with the pulm office for 2-3 weeks. Time Spent With Patient Time with patient: Greater than 35 minutes Subjective Date/time seen: 03/20/21 07:15 Interval history: 03/17/21 65-year-old female with past medical history of COPD/emphysema and severe pulmonary hypertension on chronic home O2 who presents to the ER via private vehicle from home due to shortness of breath.Pt is doing better on remdesivir and steroids. Pt is on 3 liters of oxygen. Pt complains of mild SOB and diarrhea not watery but frequent. 03/18/21 1400 Patient was lying in bed. She did get up when I walked in the room. She stated that she was having hard time keeping her oxygen saturations above 90%. She did states she does not feel like his CPAP is given her enough air. She stated that david
[2021-03-20 07:20] LABS: Basophils Percent Auto 0.2 % (0.2-1.2); Eosinophils Percent Auto 0.4 % (0-4.4); Hematocrit 27.4 % (37.0-47.0); Hemoglobin 8.4 g/dL (12.0-15.0); Immature Granulocyte Absolute 0.12 K/mm3 (0.00-0.031); Immature Granulocyte Percent A 1.3 % (0-0.5); Lymphocytes Absolute Auto 0.98 K/mm3 (0.9-3.2); Lymphocytes Percent Auto 10.4 % (18.3-44.2); Mean Corpuscular HGB Conc 30.7 g/dl (32-36); Mean Corpuscular Hemoglobin 30.2 pg (26-34); Mean Corpuscular Volume 98.6 fl (80-100); Mean Platelet Volume 9.8 fl (7.4-10.4); Monocytes Absolute Auto 1.1 K/mm3 (0.1-0.6); Monocytes Percent Auto 11.2 % (2.6-8.5); Neutrophils Absolute Auto 7.2 K/mm3 (1.3-6.7); Neutrophils Percent Auto 76.5 % (45.5-73.1); Nucleated Red Blood Cells Perc 0.2 % (0.0-0.2); Platelet Count Result 395 k/mm3 (150-375); Red Blood Count 2.78 M/mm3 (4.2-5.4); Red Cell Distribution Width 13.3 % (11.5-14.5); White Blood Count 9.4 K/mm3 (4.5-10.0)
[2021-03-20 07:27] LABS: Prothrombin Time 13.1 Seconds (11.1-14.7)
[2021-03-20 07:33] LABS: Alanine Aminotransferase 69 U/L (4-35); Albumin Level 2.9 g/dL (3.5-5.1); Alkaline Phosphatase 58 U/L (38-126); Anion Gap 7 mmol/L (8-16); Aspartate Amino Transferase 92 U/L (14-36); Bilirubin,Total 0.4 mg/dL (0.2-1.3); Blood Urea Nitrogen 16 mg/dL (7-17); Calcium 7.5 mg/dL (8.4-10.2); Carbon Dioxide 37 mmol/L (22-30); Chloride 88 mmol/L (98-107); Estimated CRCL calculation 83 ml/min; Estimated Glomerular Filt Rate > 60; Glucose 99 mg/dL (65-110); Magnesium 2.2 mg/dL (1.6-2.3); Potassium 3.6 mmol/L (3.4-5.0); Sodium 132 mmol/L (137-145)
[2021-03-20] MEDS: guaiFENesin 12 HR 600 MG TABCR 1200 MG PO (08:39)
[2021-03-20] MEDS: MAGNESIUM OXIDE 400 MG TABLET PO (08:39)
[2021-03-20] MEDS: ROFLUMILAST 500 MCG TABLET PO (08:39)
[2021-03-20] MEDS: POLYSACCHARIDE IRON COMPLEX 150 MG CAPSULE PO ×2 (08:39→16:18)
[2021-03-20] MEDS: PANTOPRAZOLE 40 MG TABLET PO ×2 (08:39→16:18)
[2021-03-20] MEDS: ACIDOPHILUS/BULGARICUS CHEWABLE TABLET 1 TABLET PO ×4 (08:39→21:20)
[2021-03-20] MEDS: ENOXAPARIN 40 MG/0.4 ML SYRINGE SUB-Q (08:40)
[2021-03-20] MEDS: LOPERAMIDE HCL 2 MG CAPSULE PO (08:43)
[2021-03-20] MEDS: FUROSEMIDE INJ 40 MG/4 ML VIAL IV PUSH (08:47)
[2021-03-20] MEDS: FLUTICASONE/UMECLIDIN/VILANTER 100-62.5-25 MCG ELLIPTA 1 PUFF INHALATION (09:23)
[2021-03-20] MEDS: REMDESIVIR 100 MG/NS 250 ML 100 MG/250 ML BAG 250 MG IVPB (10:28)
[2021-03-20] MEDS: guaiFENesin/CODEINE (*CRX) 200/20 MG 10 ML SYRUP PO (15:44)
[2021-03-20] MEDS: ATORVASTATIN 20 MG TABLET PO (21:20)
[2021-03-21] VITALS (10 sets, daily range): BP systolic 105–127; BP diastolic 47–70; PULSE 87–103; RESP 18–20; TEMP 35.7–36.7; O2SAT 90–100
[2021-03-21] MEDS: ALBUTEROL SULFATE (*SP) INHALER 4 PUFF INHALATION ×4 (02:00→21:10)
[2021-03-21 07:32] LABS: Basophils Percent Auto 0.2 % (0.2-1.2); Eosinophils Absolute Auto 0.1 K/mm3 (0-0.3); Eosinophils Percent Auto 0.9 % (0-4.4); Hemoglobin 9.4 g/dL (12.0-15.0); Immature Granulocyte Absolute 0.13 K/mm3 (0.00-0.031); Immature Granulocyte Percent A 1.2 % (0-0.5); Lymphocytes Absolute Auto 1.92 K/mm3 (0.9-3.2); Mean Corpuscular HGB Conc 30.3 g/dl (32-36); Mean Corpuscular Hemoglobin 29.4 pg (26-34); Mean Corpuscular Volume 96.9 fl (80-100); Mean Platelet Volume 9.8 fl (7.4-10.4); Monocytes Absolute Auto 1.3 K/mm3 (0.1-0.6); Monocytes Percent Auto 11.8 % (2.6-8.5); Neutrophils Absolute Auto 7.2 K/mm3 (1.3-6.7); Neutrophils Percent Auto 67.9 % (45.5-73.1); Platelet Count Result 451 k/mm3 (150-375); Red Cell Distribution Width 13.3 % (11.5-14.5); White Blood Count 10.7 K/mm3 (4.5-10.0)
[2021-03-21 07:40] LABS: Prothrombin Time 12.7 Seconds (11.1-14.7)
[2021-03-21 07:43] LABS: D Dimer 0.28 ug/mL (<0.48)
[2021-03-21 07:54] LABS: Alanine Aminotransferase 95 U/L (4-35); Albumin Level 3.5 g/dL (3.5-5.1); Alkaline Phosphatase 67 U/L (38-126); Aspartate Amino Transferase 109 U/L (14-36); Bilirubin,Total 0.2 mg/dL (0.2-1.3); Blood Urea Nitrogen 17 mg/dL (7-17); CRP 2.4 mg/dL (<1.0); Calcium 8.1 mg/dL (8.4-10.2); Carbon Dioxide > 40 mmol/L (22-30); Chloride 87 mmol/L (98-107); Estimated CRCL calculation 70 ml/min; Estimated Glomerular Filt Rate > 60; Glucose 95 mg/dL (65-110); Lactate Dehydrogenase 589 U/L (313-618); Potassium 3.6 mmol/L (3.4-5.0); Sodium 135 mmol/L (137-145)
--- NOTE | 2021-03-21 08:23 | PCNWS ---
Weekly nutritional screen. Patient is tolerating current diet with adequate intake. No weight loss reported. No nutritional needs at this time.
[2021-03-21] MEDS: FLUTICASONE/UMECLIDIN/VILANTER 100-62.5-25 MCG ELLIPTA 1 PUFF INHALATION (08:54)
--- NOTE | 2021-03-21 09:00 | PM.IMPN ---
Progress Note: A&P Assessment and Plan (1) Pneumonia due to COVID-19 virus: Code(s): U07.1 - COVID-19; J12.82 - Pneumonia due to coronavirus disease 2019 Status: Acute Assessment and Plan: x-ray: Bibasilar airspace opacities, likely pneumonia superimposed on severe emphysema. (03/16/21) No CTA chest was done as patient was on home O2 level of 2 L tested positive for COVID 04/01/21 symptoms started and 03/08/21 when she had the positive test Given her persistent and/or worsening symptoms she could have a secondary bacterial pneumonia complicating her clinical course. placed on empiric antibiotic therapy with Rocephin and azithromycin. Day 7, probably could be DC'd at this time urine Legionella and strep pneumoniae antigen negative Sputum culture: no growth due to ABG hypoxia's placed patient on Decadron and Remdesivir. Cxr: Stable bibasilar infiltrates which may represent atelectasis or pneumonia. continue to wean off oxygen Get inflammatory markers: Dimer 0.28, Ferritin 280, LDH 589, CRP 2.4 (2) COPD (chronic obstructive pulmonary disease): Qualifiers: COPD type: unspecified COPD Qualified Code(s): J44.9 - Chronic obstructive pulmonary disease, unspecified Code(s): J44.9 - Chronic obstructive pulmonary disease, unspecified Status: Acute Assessment and Plan: chronic hypoxic hypercapnic respiratory failure but hypercapnia seems relatively stable compared to baseline. pneumonia on x-ray: Bibasilar airspace opacities, likely pneumonia superimposed on severe emphysema. No CTA chest was done as patient was on home O2 level of 2 L Patient may use her home CPAP, change settings to match hospital settings. resume the patient's home inhalers when med rec is available for review. dc when back to baseline 2 liters of oxygen Resp is reaching out to the company that can adjust her machine and will follow up with adjustments that are needed. (3) Hypokalemia: Code(s): E87.6 - Hypokalemia Status: Acute Assessment and Plan: on admission hypokalemia 2.6 potassium 3.6 today 40mg PO daily scheduled cont to replace (4) Diarrhea: Code(s): R19.7 - Diarrhea, unspecified Status: Acute Assessment and Plan: few bloody diarrhea stools around New Years day, await stool cultures, all negative add Imodium Says the blood in her stool, is from her hemorrhoids Add PRN senna and miralax (5) Iron deficiency anemia: Code(s): D50.9 - Iron deficiency anemia, unspecified Status: Acute Assessment and Plan: Anemia Hb is 9.4/31.0 today Iron: 19, TIBC 319, % sat 6, Ferritin 158 started on BID niferex dosing (6) Hypomagnesemia: Code(s): E83.42 - Hypomagnesemia Status: Acute Assessment and Plan: Mag 2.0 Trend mag replace as indicated Time Spent With Patient Time with patient: Greater than 35 minutes Subjective Date/time seen: 03/21/21 0900 Interval history: 03/17/21 65-year-old female with past medical history of COPD/emphysema and severe pulmonary hypertension on chronic home O2 who presents to the ER via private vehicle from home due to shortness of breath.Pt is doing better on remdesivir and steroids. Pt is on 3 liters of oxygen. Pt complains of mild SOB and diarrhea not watery but frequent. 03/18/21 1400 Patient was lying in bed. She did get up when I walked in the room. She stated that she was having hard time keeping her oxygen saturations above 90%. She did states she does not feel like his CPAP is given her enough air. She stated that moving is a lot harder for her to breathe. She does use 2 L of oxygen at home and sats about 88-90%. She does have an increased cough which she says is yellow she is very weak however she is able to walk to the bathroom when she gets the bathroom she is about 71%. Talked to Dr. Altman who said to get her
--- NOTE | 2021-03-21 09:00 | P.PNIM_ITS ---
Progress Note: A&P Assessment and Plan (1) Pneumonia due to COVID-19 virus: Code(s): U07.1 - COVID-19; J12.82 - Pneumonia due to coronavirus disease 2019 Status: Acute Assessment and Plan: * x-ray: Bibasilar airspace opacities, likely pneumonia superimposed on severe emphysema. (03/16/21) * No CTA chest was done as patient was on home O2 level of 2 L * tested positive for COVID 04/01/21 symptoms started and 03/08/21 when she had the positive test * Given her persistent and/or worsening symptoms she could have a secondary bacterial pneumonia complicating her clinical course. * placed on empiric antibiotic therapy with Rocephin and azithromycin. Day 7, probably could be DC'd at this time * urine Legionella and strep pneumoniae antigen negative * Sputum culture: no growth * due to ABG hypoxia's placed patient on Decadron and Remdesivir. * Cxr: Stable bibasilar infiltrates which may represent atelectasis or pneumonia. * continue to wean off oxygen * Get inflammatory markers: Dimer 0.28, Ferritin 280, LDH 589, CRP 2.4 (2) COPD (chronic obstructive pulmonary disease): Qualifiers: COPD type: unspecified COPD Qualified Code(s): J44.9 - Chronic obstructive pulmonary disease, unspecified Code(s): J44.9 - Chronic obstructive pulmonary disease, unspecified Status: Acute Assessment and Plan: * chronic hypoxic hypercapnic respiratory failure but hypercapnia seems relatively stable compared to baseline. * pneumonia on x-ray: Bibasilar airspace opacities, likely pneumonia superimposed on severe emphysema. * No CTA chest was done as patient was on home O2 level of 2 L * Patient may use her home CPAP, change settings to match hospital settings. * resume the patient's home inhalers when med rec is available for review. * dc when back to baseline 2 liters of oxygen * Resp is reaching out to the company that can adjust her machine and will follow up with adjustments that are needed. (3) Hypokalemia: Code(s): E87.6 - Hypokalemia Status: Acute Assessment and Plan: * on admission hypokalemia 2.6 * potassium 3.6 today * 40mg PO daily scheduled * cont to replace (4) Diarrhea: Code(s): R19.7 - Diarrhea, unspecified Status: Acute Assessment and Plan: * few bloody diarrhea stools around , * await stool cultures, all negative * add Imodium * Says the blood in her stool, is from her hemorrhoids * Add PRN senna and miralax (5) Iron deficiency anemia: Code(s): D50.9 - Iron deficiency anemia, unspecified Status: Acute Assessment and Plan: * Anemia * Hb is 9.4/31.0 today * Iron: 19, TIBC 319, % sat 6, Ferritin 158 * started on BID niferex dosing (6) Hypomagnesemia: Code(s): E83.42 - Hypomagnesemia Status: Acute Assessment and Plan: * Mag 2.0 * Trend mag * replace as indicated Time Spent With Patient Time with patient: Greater than 35 minutes Subjective Date/time seen: 03/21/21 0900 Interval history: 03/17/21 65-year-old female with past medical history of COPD/emphysema and severe pulmonary hypertension on chronic home O2 who presents to the ER via private vehicle from home due to shortness of breath.Pt is doing better on remdesivir and steroids. Pt is on 3 liters of oxygen. Pt complains of mild SOB and diarrhea not watery but frequent. 03/18/21 1400 Patient was lying in bed. She
[2021-03-21] MEDS: MAGNESIUM OXIDE 400 MG TABLET PO (09:38)
[2021-03-21] MEDS: LOPERAMIDE HCL 2 MG CAPSULE PO (09:38)
[2021-03-21] MEDS: PANTOPRAZOLE 40 MG TABLET PO ×2 (09:39→17:03)
[2021-03-21] MEDS: ROFLUMILAST 500 MCG TABLET PO (09:39)
[2021-03-21] MEDS: guaiFENesin 12 HR 600 MG TABCR 1200 MG PO (09:39)
[2021-03-21] MEDS: POLYSACCHARIDE IRON COMPLEX 150 MG CAPSULE PO ×2 (09:39→17:03)
[2021-03-21] MEDS: ENOXAPARIN 40 MG/0.4 ML SYRINGE SUB-Q (09:39)
[2021-03-21] MEDS: REMDESIVIR 100 MG/NS 250 ML 100 MG/250 ML BAG 250 MG IVPB (09:40)
[2021-03-21] MEDS: FUROSEMIDE INJ 40 MG/4 ML VIAL IV PUSH (10:33)
[2021-03-21] MEDS: ATORVASTATIN 20 MG TABLET PO (20:48)
[2021-03-22] VITALS (9 sets, daily range): BP systolic 114; BP diastolic 56; PULSE 86; RESP 18; TEMP 36.2; O2SAT 87–96
[2021-03-22 06:28] LABS: Basophils Percent Auto 0.2 % (0.2-1.2); Eosinophils Absolute Auto 0.1 K/mm3 (0-0.3); Eosinophils Percent Auto 0.9 % (0-4.4); Hematocrit 29.2 % (37.0-47.0); Hemoglobin 9.1 g/dL (12.0-15.0); Immature Granulocyte Percent A 1.2 % (0-0.5); Lymphocytes Absolute Auto 1.99 K/mm3 (0.9-3.2); Lymphocytes Percent Auto 23.5 % (18.3-44.2); Mean Corpuscular HGB Conc 31.2 g/dl (32-36); Mean Corpuscular Hemoglobin 29.9 pg (26-34); Mean Corpuscular Volume 96.1 fl (80-100); Mean Platelet Volume 9.6 fl (7.4-10.4); Monocytes Percent Auto 11.3 % (2.6-8.5); Neutrophils Absolute Auto 5.3 K/mm3 (1.3-6.7); Neutrophils Percent Auto 62.9 % (45.5-73.1); Platelet Count Result 430 k/mm3 (150-375); Red Blood Count 3.04 M/mm3 (4.2-5.4); Red Cell Distribution Width 13.5 % (11.5-14.5); White Blood Count 8.5 K/mm3 (4.5-10.0)
[2021-03-22 06:41] LABS: INR 0.9; Prothrombin Time 12.3 Seconds (11.1-14.7)
[2021-03-22 06:49] LABS: Alanine Aminotransferase 84 U/L (4-35); Albumin Level 3.3 g/dL (3.5-5.1); Alkaline Phosphatase 71 U/L (38-126); Aspartate Amino Transferase 51 U/L (14-36); Bilirubin,Total 0.2 mg/dL (0.2-1.3); Blood Urea Nitrogen 19 mg/dL (7-17); CRP 1.5 mg/dL (<1.0); Calcium 8.1 mg/dL (8.4-10.2); Carbon Dioxide > 40 mmol/L (22-30); Chloride 87 mmol/L (98-107); Estimated CRCL calculation 83 ml/min; Estimated Glomerular Filt Rate > 60; Glucose 90 mg/dL (65-110); Lactate Dehydrogenase 379 U/L (313-618); Magnesium 1.8 mg/dL (1.6-2.3); Potassium 3.5 mmol/L (3.4-5.0); Sodium 134 mmol/L (137-145)
[2021-03-22 07:53] LABS: Hepatitis B Surface Antigen Negative (Negative)
[2021-03-22 07:58] LABS: HAV RESULT Negative (Negative); Hepatitis B Core IgM Result Negative (Negative)
[2021-03-22 08:10] LABS: Hepatitis C Virus Antibody Negative (Negative)
[2021-03-22] MEDS: FLUTICASONE/UMECLIDIN/VILANTER 100-62.5-25 MCG ELLIPTA 1 PUFF INHALATION (08:13)
[2021-03-22] MEDS: ALBUTEROL SULFATE (*SP) INHALER 4 PUFF INHALATION (08:13)
[2021-03-22] MEDS: ROFLUMILAST 500 MCG TABLET PO (08:58)
[2021-03-22] MEDS: MAGNESIUM OXIDE 400 MG TABLET PO (08:59)
[2021-03-22] MEDS: POLYSACCHARIDE IRON COMPLEX 150 MG CAPSULE PO (08:59)
[2021-03-22] MEDS: ENOXAPARIN 40 MG/0.4 ML SYRINGE SUB-Q (08:59)
[2021-03-22] MEDS: guaiFENesin 12 HR 600 MG TABCR 1200 MG PO (08:59)
[2021-03-22] MEDS: PANTOPRAZOLE 40 MG TABLET PO (08:59)
[2021-03-22] MEDS: REMDESIVIR 100 MG/NS 250 ML 100 MG/250 ML BAG 250 MG IVPB (10:07)
[2021-03-22 10:45] LABS: D Dimer 0.27 ug/mL (<0.48)
--- NOTE | 2021-03-22 11:10 | PCRCNOTE ---
Home Astral unit EPAP level changed to 7 on 03/20/20 per Bhavik Marinelli's request. Updated setting order to be faxed to [facility] today. [facility] unable to make any setting adjustments while patient is Covid positive.
--- NOTE | 2021-03-22 11:43 | HOMEO2EVAL ---
Evaluation was performed at [facility] Home Oxygen Evaluation RC: Home Oxygen (O2) Evaluation Start: 03/21/21 18:29 Freq: ONCE Status: Active Protocol: RPE Activity Type Activity Date Activity User E-Sign Co-Sign Detail Recorded Client Recorded Date Recorded By Document 03/22/21 11:15 STEPHANY [email or web address] 03/22/21 11:43 STEPHANY Document 03/22/21 11:16 STEPHANY [email or web address] 03/22/21 11:43 STEPHANY Document 03/22/21 11:17 STEPHANY [email or web address] 03/22/21 11:43 STEPHANY Document 03/22/21 11:20 STEPHANY [email or web address] 03/22/21 11:43 STEPHANY Document 03/22/21 11:25 STEPHANY [email or web address] 03/22/21 11:43 STEPHANY Document 03/22/21 11:30 STEPHANY [email or web address] 03/22/21 11:43 STEPHANY 03/22/21 03/22/21 03/22/21 11:15 11:16 11:17 Home O2 Evaluation Test Phase Resting Resting Resting Oxygen Delivery Room Air Nasal Cannula Nasal Cannula Oxygen Flow Rate (L/min) 1 2 Pulse Oximetry (90-100 %) 87 L 87 L 92 Home Oxygen Evaluation Comments Treatment Charges O2 Evaluation - Inpatient 03/22/21 03/22/21 03/22/21 11:20 11:25 11:30 Home O2 Evaluation Test Phase Exercise Exercise Resting Oxygen Delivery Nasal Cannula Nasal Cannula Nasal Cannula Oxygen Flow Rate (L/min) 2 3 2 Pulse Oximetry (90-100 %) 87 L 89 L 93 Home Oxygen Evaluation Comments PT REQUIRES 2 L AT REST AND 3 L WITH ACTIVITY Treatment Charges
--- NOTE | 2021-03-22 11:43 | PCRCNOTE ---
HOME O2 EVAL DONE, 2 L REST AND 3 L WITH ACTIVITY. PT WEARS CPAP AT NIGHT WITH A 3L BLEED IN. PT HAS [employer]. PT HAS TANK IN ROOM FOR TRANSPORT HOME. CHARGE NURSE NOTIFIED
--- NOTE | 2021-03-22 13:55 | P.DS_ITS ---
DS: Admitting Diagnosis Discharge Date 03/22/2021 Admitting Diagnosis COVID-19 DS: Discharge Diagnosis Discharge Diagnosis (1) Pneumonia due to COVID-19 virus: Code(s): U07.1 - COVID-19; J12.82 - Pneumonia due to coronavirus disease 2019 Status: Acute Assessment and Plan: COVID positive 03/08/21. * CXR showed bibasilar airspace opacities, likely pneumonia superimposed on severe emphysema * Treated with Dexamethasone and Remdesivir * Concerns for secondary bacterial pneumonia due to persistence and worsening of symptoms therefore treated with Azithromycin and Ceftriaxone and completed 7 days. * Sputum culture negative. Urine Legionella and strep pneumoniae antigen negative * She required up to 3 L supplemental O2. Home requirement of 1 L with rest and 2 L with activity at baseline prior to admission. * Home O2 eval performed prior to discharge which showed O2 requirement of 2 L with rest and 3 L with activity. (2) COPD (chronic obstructive pulmonary disease): Qualifiers: COPD type: unspecified COPD Qualified Code(s): J44.9 - Chronic obstructive pulmonary disease, unspecified Code(s): J44.9 - Chronic obstructive pulmonary disease, unspecified Status: Acute Assessment and Plan: Not in acute exacerbation. She does have chronic hypoxic hypercapnic respiratory failure * severe emphysema noted on CXR. * continue maintenance inhalers * continue home oxygen * Continue outpatient pulmonology follow-up (3) Hypokalemia: Code(s): E87.6 - Hypokalemia Status: Acute Assessment and Plan: Potassium was 2.6 on admission * Likely due to poor oral intake * Potassium was monitored and supplemented * Resolved. Potassium remained stable following supplementation (4) Diarrhea: Code(s): R19.7 - Diarrhea, unspecified Status: Acute Assessment and Plan: Patient complained of diarrhea on 03/02/2021, reported with some bright red blood that she related to hemorrhoids * Stool occult blood test was negative, no further blood in stools * Stool cultures negative * Resolved (5) Iron deficiency anemia: Code(s): D50.9 - Iron deficiency anemia, unspecified Status: Acute Assessment and Plan: Hemoglobin and hematocrit remained stable, however slightly lower than her base line * Iron panel reviewed consistent with iron deficiency * Started on oral iron supplementation (6) Hypomagnesemia: Code(s): E83.42 - Hypomagnesemia Status: Acute Assessment and Plan: Magnesium 1.5 early in admission * Magnesium was monitored and replaced * Resolved. DS: Summary Hospital Course Hospital Course: Date of admission: 03/13/2021 Date of discharge: 03/22/2021 Zainab Maya is a 65-year-old female with a history of chronic respiratory failure on 1-2 L supplemental O2, pulmonary hypertension, asthma, diastolic dysfunction who presented to the emergency department on 03/13/2021 with complaints of shortness of breath after testing positive for COVID-19 on 03/08/21. She was admitted to the hospitalist service for further evaluation and management. She was treated with dexamethasone and remdesivir as well as antibiotics for concomitant bacterial pneumonia. Please see above for further details. She had symptomatic improvement. Home O2 eval was performed and home oxygen requirements were consistent with 2 L with rest and 3 L with activity. She was feeling much improved and requested discharge home. Given her overall i mprovement, she wo
--- NOTE | 2021-03-22 13:55 | PM.DS ---
DS: Admitting Diagnosis Discharge Date 03/22/2021 Admitting Diagnosis COVID-19 DS: Discharge Diagnosis Discharge Diagnosis (1) Pneumonia due to COVID-19 virus: Code(s): U07.1 - COVID-19; J12.82 - Pneumonia due to coronavirus disease 2019 Status: Acute Assessment and Plan: COVID positive 03/08/21. CXR showed bibasilar airspace opacities, likely pneumonia superimposed on severe emphysema Treated with Dexamethasone and Remdesivir Concerns for secondary bacterial pneumonia due to persistence and worsening of symptoms therefore treated with Azithromycin and Ceftriaxone and completed 7 days. Sputum culture negative. Urine Legionella and strep pneumoniae antigen negative She required up to 3 L supplemental O2. Home requirement of 1 L with rest and 2 L with activity at baseline prior to admission. Home O2 eval performed prior to discharge which showed O2 requirement of 2 L with rest and 3 L with activity. (2) COPD (chronic obstructive pulmonary disease): Qualifiers: COPD type: unspecified COPD Qualified Code(s): J44.9 - Chronic obstructive pulmonary disease, unspecified Code(s): J44.9 - Chronic obstructive pulmonary disease, unspecified Status: Acute Assessment and Plan: Not in acute exacerbation. She does have chronic hypoxic hypercapnic respiratory failure severe emphysema noted on CXR. continue maintenance inhalers continue home oxygen Continue outpatient pulmonology follow-up (3) Hypokalemia: Code(s): E87.6 - Hypokalemia Status: Acute Assessment and Plan: Potassium was 2.6 on admission Likely due to poor oral intake Potassium was monitored and supplemented Resolved. Potassium remained stable following supplementation (4) Diarrhea: Code(s): R19.7 - Diarrhea, unspecified Status: Acute Assessment and Plan: Patient complained of diarrhea on 03/02/2021, reported with some bright red blood that she related to hemorrhoids Stool occult blood test was negative, no further blood in stools Stool cultures negative Resolved (5) Iron deficiency anemia: Code(s): D50.9 - Iron deficiency anemia, unspecified Status: Acute Assessment and Plan: Hemoglobin and hematocrit remained stable, however slightly lower than her baseline Iron panel reviewed consistent with iron deficiency Started on oral iron supplementation (6) Hypomagnesemia: Code(s): E83.42 - Hypomagnesemia Status: Acute Assessment and Plan: Magnesium 1.5 early in admission Magnesium was monitored and replaced Resolved. DS: Summary Hospital Course Hospital Course: Date of admission: 03/13/2021 Date of discharge: 03/22/2021 Zainab Maya is a 65-year-old female with a history of chronic respiratory failure on 1-2 L supplemental O2, pulmonary hypertension, asthma, diastolic dysfunction who presented to the emergency department on 03/13/2021 with complaints of shortness of breath after testing positive for COVID-19 on 03/08/21. She was admitted to the hospitalist service for further evaluation and management. She was treated with dexamethasone and remdesivir as well as antibiotics for concomitant bacterial pneumonia. Please see above for further details. She had symptomatic improvement. Home O2 eval was performed and home oxygen requirements were consistent with 2 L with rest and 3 L with activity. She was feeling much improved and requested discharge home. Given her overall improvement, she would no longer require inpatient care. She was discharged in hemodynamically stable condition on 03/22/2021. Discussed with the patient prior to discharge worrisome signs and symptoms for which to return and informed of need for outpatient follow-up with PCP in 1 week. Status at Discharge Functional status at discharge: independent ambulation Time Spent with Patient Time attestation: Total time spent providing and/or coordina
== END 2021-03-22 13:38 | disposition home or self-care (01) | DRG 177 ==
LOC: ANHED 23:47 → ANH3MEDSUR 03-14 01:04
PROVIDERS: Emergency Medicine; Family Medicine; Hospitalist; Nurse Practitioner; Admitting Provider Internal Medicine; Emergency Provider Emergency Medicine; PCP Internal Medicine; Visit Provider Physician Assistant
DX: U07.1 COVID-19 (principal); J12.82 Pneumonia due to coronavirus disease 2019; J18.9 Pneumonia, unspecified organism; J96.12 Chronic respiratory failure with hypercapnia; J96.11 Chronic respiratory failure with hypoxia; J43.9 Emphysema, unspecified; I27.20 Pulmonary hypertension, unspecified; D50.9 Iron deficiency anemia, unspecified; E83.42 Hypomagnesemia; E87.6 Hypokalemia; R19.7 Diarrhea, unspecified; Z87.891 Personal history of nicotine dependence; Z99.81 Dependence on supplemental oxygen; Z90.710 Acquired absence of both cervix and uterus; Z90.49 Acquired absence of other specified parts of digestive tract
CPT/HCPCS: 36415; 36600; 71045; 80048; 80053; 80074; 82274; 82565; 82728; 82805; 83540; 83550; 83605; 83615; 83735; 83880; 84460; 85025; 85027; 85380; 85610; 86140; 87040; 87070; 87205; 87324; 87449; 87899; 93005; 94002; 94618; 94640; 96365; 96367; 97161; 97165; 97535; 99285; A9270; C9803; G0378; J0456; J0696; J1100; J1650; J1756; J1940; J3475; J3480; J7030; J7040; U0003; U0005

== ENCOUNTER 2022-01-25 16:53 | Inpatient (IN) | payer MEDICARE, SELFPAY ==
[2022-01-25] VITALS (15 sets, daily range): BP systolic 144–175; BP diastolic 65–82; PULSE 76–120; RESP 18–28; TEMP 36.7–37; O2SAT 90–100
--- NOTE | ~2022-01-25 | CT_ITS ---
EXAMINATION: CT BRAIN W/O DATE: 01/31/2022 17:22 INDICATION: Right pupil was sluggish. Patient G. TECHNIQUE: Computed tomography (CT) of the head was performed without intravenous contrast. The dose- length product was 681.00 mGy-cm. Automated exposure control and iterative reconstruction technique w ere employed. COMPARISON: No prior studies for comparison. FINDINGS: Normal brain parenchymal volume for age. Normal jackman-white differentiation. No acute intrac ranial hemorrhage, infarction, mass or mass effect. There are scattered mild periventricular and subc ortical white matter changes, most likely related to small vessel ischemic disease (microangiopathy). No ventriculomegaly or midline shift. Midline sagittal images demonstrate a normal corpus callosum, c raniovertebral junction and sella turcica. Basilar cisterns are patent. Paranasal sinuses and mastoids are pneumatized. No depressed skull fractures. IMPRESSION: 1. No acute intracranial abnormality. Reviewed, dictated and finalized at location A. PROFESSIONAL EDUCATION ASSISTANT
--- NOTE | ~2022-01-25 | US_ITS ---
EXAMINATION: US carotid duplex BI DATE: 02/01/2022 10:53 INDICATION: Sluggish right pupil. Cloudy vision. TECHNIQUE: Grayscale, color Doppler, and pulsed Doppler images of the cervical carotid arteries were obtained. The degree of vessel stenosis is placed in one of the following categories: normal, <50%, 5 0-69%, >=70% but less than near-occlusion, near-occlusion, or total occlusion. Note that percent sten osis relative to normal distal artery lumen diameter is indirectly measured from velocity measurement s as described by Brad, et al. Radiology 2003; 229:340-346. Notes: Normal: Peak systolic velocity <125 centimeters/sec and no plaque <50%. Peak systolic velocity <125 ( EDV <40; ICA/CCA PSV ratio <2.0; used these factors only a tandem lesions or low cardiac output or co ntralateral disease) 50-69 %: PSV 125-230 (EDV 40-100; ratio 2-4) >= 70% but less than near occlusion: PSV greater than 230 (EDV > 100; ratio> 4.0) Near Occlusion: PSV that is variable; markedly narrowed lumen Occlusion: Absent flow on color/spectral Doppler and no lumen on jackman scale. COMPARISON: No prior studies for comparison. . FINDINGS: RIGHT: The right common carotid artery (CCA) peak systolic velocity (PSV) is 89 cm/s. The right internal car otid artery (ICA) PSV is 85 cm/s. The right ICA end-diastolic velocity (EDV) is 21 cm/s. The right IC A/CCA PSV ratio is 1.0. The external carotid artery (ECA) PSV is 141 cm/s. There is antegrade flow in the right vertebral artery. LEFT: The left CCA PSV is 83 cm/s. The left ICA PSV is 92 cm/s. The left ICA EDV is 34 cm/s. The left ICA/C CA PSV ratio is 1.1. The ECA PSV is 134 cm/s. There is antegrade flow in the left vertebral artery. IMPRESSION: 1. Less than 50% stenosis in the right internal carotid artery by sonographic criteria. 2. Less than 50% stenosis in the left internal carotid artery by sonographic criteria. Reviewed, dictated and finalized at location A. NER INTERN IMPRESSION: 1. Less than 50% stenosis in the right internal carotid artery by sonographic laurence vargas. 2. Less than 50% stenosis in the left internal carotid artery by sonographic valery quintana.
--- NOTE | ~2022-01-25 | XR_ITS ---
XR chest 1V portable 01/28/2022 09:02 Indication: Shortness of breath Procedure: AP portable chest Comparison: Comparison to multiple prior studies sequentially, with oldest reviewed study dated 03/13. Findings: Stable bilateral nodular densities in the right upper lung and left midlung. Severe bullous emphysema. Bibasilar infiltrates are slightly increased which may represent pneumonia or edema. Stab le cardiomediastinal silhouette. Central pulmonary arteries are enlarged suggesting pulmonary artery hypertension. No acute osseous abnormality. Impression: 1: Interval progression of bibasilar infiltrates which may represent pneumonia or edema. 2: No significant change to bilateral nodular densities. Consider correlation with CT. 3: Severe bullous emphysema. Reviewed, dictated and finalized at location A. AL GUNNER Impression: 1: Interval progression of bibasilar infiltrates which may represent pneumonia or edema. 2: No significant change to bilateral nodular densities. Consider correlation with CT. 3: Severe bullous emphysema.
--- NOTE | ~2022-01-25 | MR_ITS ---
EXAMINATION: MR brain/brain stem wo/w con DATE: 02/01/2022 10:44 INDICATION: Right pupil sluggish. Vision cloudy. TECHNIQUE: Magnetic resonance imaging (MRI) of the brain and brainstem was performed without and with 14 cc MultiHance intravenous contrast. Sequences included sagittal and axial T1-weighted SE, axial d iffusion-weighted FS SE, axial T2*-weighted GRE, axial T2-weighted FLAIR Propeller, and axial T2-weig hted Propeller. Apparent diffusion coefficient (ADC) maps were created. COMPARISON: CT dated 01/31/2022. FINDINGS: Brain parenchymal volume is normal for age. There are scattered mild periventricular and beltran bcortical white matter changes, most likely related to small vessel ischemic disease (microangiopathy ). No acute intracranial infarction or hemorrhage. No abnormal mass or mass effect. There is a small air-fluid level in the left sphenoid sinus. Structures of the posterior fossa including 7/8th cranial nerve complexes are normal. Orbits are symmetric without disconjugate gaze. No abnormal contrast enh ancement. Midline sagittal images are unremarkable. No abnormality of the sella turcica, corpus callo sum are craniovertebral junction. IMPRESSION: 1. No acute intracranial abnormality. 2: Chronic age-related findings. 3: Mild left sphenoid sinus disease. Reviewed, dictated and finalized at location A. T ASSIGNER
--- NOTE | ~2022-01-25 | US_ITS ---
EXAMINATION:US venous doppler LE BI INDICATION:Evaluate for DVT. TECHNIQUE: Multiple grayscale, color flow and Doppler images of the right and left lower extremity de ep venous systems were obtained and reviewed. COMPARISON:Ultrasound dated 08/26/2017 FINDINGS: The common femoral, superficial femoral and popliteal veins demonstrate normal respiratory variation, augmentation and compressibility. Color flow is also seen within the posterior tibial, pe roneal, greater saphenous and profunda veins. IMPRESSION: 1: No lower extremity deep venous thrombosis. Reviewed, dictated and finalized at location A. S FARMER
--- NOTE | ~2022-01-25 | XR_ITS ---
EXAMINATION: XR chest 1V portable INDICATION: Shortness of breath TECHNIQUE: Portable AP chest at 0545 hours COMPARISON: 01/28/2022 FINDINGS: Bibasilar airspace opacities persist without significant change. The lungs are hyperinflate d. There are lucencies in the left upper lung zone, consistent with emphysema. No pleural effusion or pneumothorax. The cardiomediastinal silhouette is normal. There are chronic bilateral calcified pulm onary nodules. IMPRESSION: 1. Stable bibasilar airspace opacities, consistent with atelectasis versus pneumonia. 2. Severe emphysema. Reviewed, dictated and finalized at location A. ING MACHINE TENDER IMPRESSION: 1. Stable bibasilar airspace opacities, consistent with atelectasis versus pneu monia. 2. Severe emphysema.
--- NOTE | ~2022-01-25 | XR_ITS ---
EXAMINATION: XR chest 2V Exam Date/Time: 01/25/2022 17:45 FLOOR CLERK HISTORY: Shortness of breath, HTN, COPD, EMPHYSEMA Comparison: 03/21/2021. RESULT: Lines, tubes, and devices: None. Lungs and pleura: No focal consolidation or pneumothorax. Senescent and emphysematous change. Scar v ersus masslike opacities in the right upper lung and left midlung. Cardiomediastinal silhouette: Stable cardiomegaly, Central pulmonary artery dilation, and mediastina l node calcification. Other: No acute osseous or upper abdominal finding. IMPRESSION: No acute cardiopulmonary process. Reviewed, dictated and finalized at location K. R CLERK
--- NOTE | 2022-01-25 17:04 | ECG_ITS ---
Measurements Intervals [place] Rate: 123 P: 149 PA: 144 QRS: 171 QRSD: 110 T: 149 QT: 311 QTc: 446 Interpretive Statements SINUS TACHYCARDIA FREQUENT ATRIAL PREMATURE COMPLEXES ARM LEADS REVERSED DELAYED PRECORDIAL R/S TRANSITION BASELINE ARTIFACT- I, III, AVR, AVL, AVF, V1-V6 ABNORMAL ECG COMPARED TO ECG 03/13/2021 22:40:00 SINUS TACHYCARDIA NOW PRESENT Electronically Signed On 01-25-2022 22:02:19 [employer] by Rafael Ventura D.O.
[2022-01-25 17:14] LABS: Basophils Percent Auto 0.2 % (0.2-1.2); Eosinophils Absolute Auto 0.1 K/mm3 (0-0.3); Eosinophils Percent Auto 0.7 % (0-4.4); Hematocrit 35.9 % (37.0-47.0); Hemoglobin 10.6 g/dL (12.0-15.0); Immature Granulocyte Absolute 0.12 K/mm3 (0.00-0.031); Immature Granulocyte Percent A 0.6 % (0-0.5); Lymphocytes Percent Auto 11.5 % (18.3-44.2); Mean Corpuscular HGB Conc 29.5 g/dl (32-36); Mean Corpuscular Hemoglobin 29.3 pg (26-34); Mean Corpuscular Volume 99.2 fl (80-100); Mean Platelet Volume 9.2 fl (7.4-10.4); Monocytes Absolute Auto 1.7 K/mm3 (0.1-0.6); Monocytes Percent Auto 8.7 % (2.6-8.5); Neutrophils Absolute Auto 14.9 K/mm3 (1.3-6.7); Neutrophils Percent Auto 78.3 % (45.5-73.1); Platelet Count Result 438 k/mm3 (150-375); Red Blood Count 3.62 M/mm3 (4.2-5.4); White Blood Count 19.1 K/mm3 (4.5-10.0)
--- NOTE | 2022-01-25 17:19 | ED.SOB ---
HPI - SOB/Dyspnea General Chief Complaint: Shortness of Breath/Dyspnea <BLAS Alamo Last Filed: 01/26/22 02:01> Stated Complaint: SOB <BLAS [place]amo Last Filed: 01/26/22 02:01> Time Seen by Provider: 01/25/22 17:13 <BLAS [place]amo Last Filed: 01/26/22 02:01> Source: patient <BLAS [place]amo Last Filed: 01/26/22 02:01> Mode of arrival: ambulatory <BLAS [place]amo Last Filed: 01/26/22 02:01> Limitations: no limitations <BLAS Alamo Last Filed: 01/26/22 02:01> History of Present Illness HPI Narrative: Patient is a 66 y/o female, with a PMHx of pulmonary HTN, CHF, COPD, chronic home O2 use @ 2L, who presents to the ED with c/o SOB. Patient reports she chronically wears 2 L nasal cannula at all times, 3 L with her Trilogy machine at night. Over the past 1 week, she has had to increase her oxygen due to worsening SOB and SaO2 dropping below 90% at home. She was recently given a Prednisone taper by her PCP, but did not finish this. She states she decided to come to the ED today now that the holidays are over. She denies any recent fever, cough, chest pain, sore throat, congestion, rhinorrhea, abdominal pain, BLE pain or edema. <BLAS Alamo Last Filed: 01/26/22 02:01> Related Data Home Medications: Home Medications Medication Instructions Recorded Confirmed omeprazole 20 mg capsule,delayed 20 mg PO BID 02/18/19 01/26/22 release acetaminophen 500 mg tablet 1,000 mg PO BID PRN Pain 03/14/21 01/26/22 atorvastatin 20 mg tablet 20 mg PO HS 03/14/21 01/26/22 fluticasone fur. 100 mcg-umeclid 1 inh inhalation DAILY 03/14/21 01/26/22 62.5 mcg-vilant 25 mcg inhalat.powder (Trelegy Ellipta) <Rosa Wang PA-C - Last Filed: 01/26/22 02:01> Allergies/Adverse Reactions: Allergies Allergy/AdvReac Type Severity Reaction Status Date / Time No Known Allergies Allergy Verified 01/25/22 17:11 <oRsa Wang PA-C - Last Filed: 01/26/22 02:01> Review of Systems Review of Systems: CONSTITUTIONAL: Denies fever, chills, or sweats. ENT: Denies rhinorrhea, congestion, sore throat, or otalgia. CARDIOVASCULAR: Denies chest pain, BLE edema. RESPIRATORY: Reports dyspnea. Denies cough. GASTROINTESTINAL: Denies abdominal pain, nausea, vomiting. MUSCULOSKELETAL: Denies BLE pain. NEUROLOGIC: Denies headache, numbness, or weakness. <Rosa Wang PA-C - Last Filed: 01/26/22 02:01> All systems reviewed & are unremarkable except as noted in HPI and below <Rosa Wang PA-C - Last Filed: 01/26/22 02:01> PMF Past Medical History Medical History: Medical History Asthma Chronic obstructive pulmonary disease with (acute) exacerbation Chronic respiratory failure with hypoxia and hypercapnia On home oxygen during the day and iVAPS at night Diastolic dysfunction Echocardiogram November 2016 Emphysema lung Former smoker, stopped smoking in distant past Hyperlipidemia Pulmonary hypertension Severe pulmonary hypertension with RVSP of 68 noted on echo from November 2016 Recurrent umbilical hernia <Rosa Wang PA-C - Last Filed: 01/26/22 02:01> Surgical History Surgical History: Surgical History History of bursectomy left elbow History of laparoscopic cholecystectomy (08/2017) History of tubal ligation History of umbilical hernia repair (08/2017) History of vaginal hysterectomy <Rosa Wang PA-C - Last Filed: 01/26/22 02:01> Family History Family History: Family History (Updated 01/26/22 @ 00:20 by Katty Griffin RN) Sibling Family history of malignant neoplasm of breast in first degree relative Family history of chronic obstructive pulmonary disease Father Family history of chroni
[2022-01-25 17:30] LABS: Alanine Aminotransferase 15 U/L (6-35); Albumin Level 3.6 g/dL (3.5-5.1); Alkaline Phosphatase 107 U/L (38-126); Aspartate Amino Transferase 20 U/L (14-36); Bilirubin,Total 0.3 mg/dL (0.2-1.3); Blood Urea Nitrogen 14 mg/dL (7-17); Calcium 8.7 mg/dL (8.4-10.2); Carbon Dioxide > 40 mmol/L (22-30); Chloride 86 mmol/L (98-107); Estimated CRCL calculation 77 ml/min; Estimated Glomerular Filt Rate > 60; Glucose 130 mg/dL (65-110); Potassium 2.9 mmol/L (3.4-5.0); Sodium 138 mmol/L (137-145)
[2022-01-25 17:42] LABS: NT Pro B Type Natriuretic Pept 470 pg/mL (5-100); Troponin I < 0.012 ng/mL (0.000-0.034)
[2022-01-25] MEDS: POTASSIUM CHLORIDE INJ 40 MEQ in SODIUM CHLORIDE 0.9% IV 500 ML 130 MEQ IVPB (17:55)
[2022-01-25 18:03] LABS: Magnesium 1.5 mg/dL (1.6-2.3)
[2022-01-25] MEDS: IPRATROPIUM BR 0.02% INH SOLN 0.5 MG/2.5 ML VIAL INHALATION (18:11)
[2022-01-25 18:12] LABS: Influenza A QL RT-PCR Negative (Negative); Influenza B QL RT-PCR Negative (Negative); SARS-CoV-2 RNA PCR Negative
[2022-01-25] MEDS: ALBUTEROL SULFATE NEB 2.5 MG/3 ML INH 5 MG INHALATION (18:12)
[2022-01-25 18:17] LABS: Alveolar/Arterial O2 Gradient 14.5 mmHg; Base Excess ABG 19.7 mEq/l (+/-2.0); Carboxyhemoglobin 1.7 % THb (0-2.0); Fractional Inspired Oxygen 28 %; HCO3 ABG 49.8 mEq/l (22.0-26.0); Methemoglobin ABG 0.3 %THb (0-1.5); Oxygen Content ABG 14.9 %vol (16.0-22.0); Oxygen Saturation ABG 92.7 % (95.0-100.0); Oxyhemoglobin 91.2 % THb (90.0-100.0); PO2 ABG 73.5 mmHg (80.0-100.0); PO2 FiO2 Ratio Arterial Blood 2.63 %; Reduced Hemoglobin 6.8 %THb (0-5.0); Total Hemoglobin 11.6 g/dL (12.0-18.0); pH ABG 7.339 (7.350-7.450)
[2022-01-25 18:19] LABS: PCO2 ABG 94.6 mmHg (35.0-45.0)
[2022-01-25 18:20] LABS: Device NASAL CANNULA; Modified Allen's Test Pass; Site Drawn RIGHT RADIAL
[2022-01-25 20:45] LABS: Troponin I 0.012 ng/mL (0.000-0.034)
[2022-01-25 21:17] LABS: Alveolar/Arterial O2 Gradient 118.3 mmHg; Base Excess ABG 16.8 mEq/l (+/-2.0); Carboxyhemoglobin 0.9 % THb (0-2.0); Fractional Inspired Oxygen 50 %; HCO3 ABG 46.4 mEq/l (22.0-26.0); Methemoglobin ABG 0.2 %THb (0-1.5); Oxygen Content ABG 14.9 %vol (16.0-22.0); Oxygen Saturation ABG 98.3 % (95.0-100.0); Oxyhemoglobin 97.1 % THb (90.0-100.0); Reduced Hemoglobin 1.8 %THb (0-5.0); Total Hemoglobin 10.7 g/dL (12.0-18.0); pH ABG 7.322 (7.350-7.450)
[2022-01-25 21:19] LABS: Device BIPAP; Modified Allen's Test Pass; PCO2 ABG 91.7 mmHg (35.0-45.0); Site Drawn RIGHT RADIAL
[2022-01-25 21:20] LABS: Expiratory Pressure 8 cmH2O; Inspiratory Pressure 18 cmH2O
[2022-01-25] MEDS: methylPREDNISolone SOD SUCC 125 MG VIAL IV PUSH (22:07)
[2022-01-25] MEDS: MAGNESIUM SULF 2 GM/WATER 50ML 2 GM/50 ML BAG IVPB (22:07)
--- NOTE | 2022-01-25 22:11 | PM.IMHP ---
H&P: HPI History of Present Illness Date/Time: 01/25/22 22:11 Chief Complaint: Shortness of breath Narrative: This is a 66-year-old female patient who has a history of pulmonary hypertension, congestive heart failure COPD and chronic hypoxia with oxygen use at 2 L per nasal cannula. The patient uses a trilogy at home with 3 L bled into it otherwise she wears 2 L at home at all times. Over the last week she has had increased oxygen use and increased shortness of breath. Her O2 saturations were dropping below 90% home. The patient recently was given a prednisone taper by her PCP but she did not finish the taper. The patient was having difficulty with her trilogy machine and called the company brought her a new 1 just a couple days ago. She denied any fever chills or any chest pain. No sore throat. White count is 19.1 H&H is 10.6 and 35.9 which is her baseline. PH initially was 7.339 and CO2 was 94.6. The patient had a repeat ABG 7.322 CO2 91.7. The patient became more awake she is currently on a BiPAP of 20/10. Potassium was 2.9 which was replaced in the emergency room. Magnesium was 1.5 which was replaced. Troponin was negative x1. Influenza A/B and COVID were all negative. The patient is being admitted to observation status on the date of service of 01/25/2022. Review of Systems Review of Systems: See HPI All systems reviewed & are unremarkable except as noted in HPI and below Constitutional: Constitutional: Reports as per HPI and Reports no additional constitutional complaints Eyes: Eyes: Reports as per HPI and Reports no additional eye complaints ENT: Reports system reviewed and no additional complaints, except as documented and Reports Normal hearing present Cardiovascular: Cardiovascular: Reports no additional cardiovascular complaints Respiratory: Respiratory: Reports no additional respiratory complaints and Reports no additional respiratory complaints Gastrointestinal: Gastrointestinal: Reports as per HPI and Reports no additional gastrointestinal complaints Musculoskeletal: Musculoskeletal: Reports no additional musculoskeletal complaints Integumentary/Breasts: Skin/Breast: Reports system reviewed and no additional complaints, except as docu and Reports as per HPI Neurologic: Reports system reviewed and no additional complaints, except as documented, Reports as per HPI and Reports Normal hearing present Psychiatric: Psychiatric: Reports no additional psychiatric complaints and Reports as per HPI Endocrine: Endocrine: Reports no additional endocrine complaints Hematologic/Lymphatic: Hematologic/Lymphatic: Reports no additional hematologic/lymphatic complaints Allergic/Immunologic: Allergic/Immunologic: Reports no additional allergic/immunologic complaints [facility] Past Medical History Medical History Asthma Chronic obstructive pulmonary disease with (acute) exacerbation Chronic respiratory failure with hypoxia and hypercapnia On home oxygen during the day and iVAPS at night Diastolic dysfunction Echocardiogram November 2016 Emphysema lung Former smoker, stopped smoking in distant past Hyperlipidemia Pulmonary hypertension Severe pulmonary hypertension with RVSP of 68 noted on echo from November 2016 Recurrent umbilical hernia Surgical History Surgical History History of bursectomy left elbow History of laparoscopic cholecystectomy (08/2017) History of tubal ligation History of umbilical hernia repair (08/2017) History of vaginal hysterectomy Family History Family History Sibling Family history of chronic obstructive pulmonary disease Family history of malignant neoplasm of breast in first degree relative Father Family history of chronic obstructive pulmonary disease Mother Family history of chronic obstructive pulmo
--- NOTE | 2022-01-25 23:42 | PCRCNOTE ---
pt wanted to come off BIPAP to eat. RT placed pt on 3 liters, sp02 100%.
[2022-01-26] VITALS (29 sets, daily range): BP systolic 119–156; BP diastolic 46–74; PULSE 69–106; RESP 18–25; TEMP 36.1–36.8; O2SAT 90–99
[2022-01-26 00:14] LABS: Troponin I 0.015 ng/mL (0.000-0.034)
[2022-01-26] MEDS: POTASSIUM CHLORIDE 20 MEQ PACKET (FOR LIQUID) 40 MEQ PO (00:26)
--- NOTE | 2022-01-26 02:03 | ADMGEN ---
This patient, Zainab Maya, was admitted to IMU Room 203-01 at 2335. Patient/family oriented to hospital policies and general routines including ID bracelet, bed and alarms, visiting hours, pain management, procedures, bathroom and other care routines, personal items, smoking policy, room service/diet, and visiting hours. Information on how to activate the Rapid Response Team has been discussed. Patient/Family are encouraged to report perceived risks to care and to ask questions if they do not understand what they are told or what they should do.
[2022-01-26] MEDS: ACETAMINOPHEN 500 MG TABLET 1000 MG PO ×3 (02:21→21:13)
[2022-01-26] MEDS: ATORVASTATIN 20 MG TABLET PO ×2 (02:22→21:13)
[2022-01-26] MEDS: ALBUTEROL SULFATE NEB 2.5 MG/3 ML INH INHALATION ×4 (02:26→20:06)
[2022-01-26] MEDS: IPRATROPIUM BR 0.02% INH SOLN 0.5 MG/2.5 ML VIAL INHALATION ×4 (02:26→20:06)
[2022-01-26 05:20] LABS: Basophils Percent Auto 0.1 % (0.2-1.2); Hematocrit 30.7 % (37.0-47.0); Hemoglobin 9.1 g/dL (12.0-15.0); Immature Granulocyte Absolute 0.08 K/mm3 (0.00-0.031); Immature Granulocyte Percent A 0.6 % (0-0.5); Lymphocytes Absolute Auto 0.55 K/mm3 (0.9-3.2); Lymphocytes Percent Auto 3.8 % (18.3-44.2); Mean Corpuscular HGB Conc 29.6 g/dl (32-36); Mean Corpuscular Hemoglobin 28.7 pg (26-34); Mean Corpuscular Volume 96.8 fl (80-100); Mean Platelet Volume 9.7 fl (7.4-10.4); Monocytes Absolute Auto 0.2 K/mm3 (0.1-0.6); Monocytes Percent Auto 1.2 % (2.6-8.5); Neutrophils Absolute Auto 13.5 K/mm3 (1.3-6.7); Neutrophils Percent Auto 94.3 % (45.5-73.1); Platelet Count Result 384 k/mm3 (150-375); Red Blood Count 3.17 M/mm3 (4.2-5.4); White Blood Count 14.4 K/mm3 (4.5-10.0)
[2022-01-26 05:29] LABS: Alveolar/Arterial O2 Gradient 149.7 mmHg; Base Excess ABG 18.2 mEq/l (+/-2.0); Fractional Inspired Oxygen 50 %; HCO3 ABG 48.5 mEq/l (22.0-26.0); Oxygen Content ABG 18.1 %vol (16.0-22.0); Oxygen Saturation ABG 97.2 % (95.0-100.0); Oxyhemoglobin 96.6 % THb (90.0-100.0); PO2 ABG 105.8 mmHg (80.0-100.0); PO2 FiO2 Ratio Arterial Blood 2.12 %; Total Hemoglobin 13.2 g/dL (12.0-18.0)
[2022-01-26 05:32] LABS: Device NON-INVASIVE VENT; Modified Allen's Test Pass; Non-Invasive Expiratory Pressure 10 CMH2O; Non-Invasive Inspiratory Pressure 20 CMH2O; Non-Invasive Vent Rate 18 /MIN; PCO2 ABG 89.8 mmHg (35.0-45.0); Site Drawn LEFT RADIAL
[2022-01-26 05:39] LABS: Alanine Aminotransferase 15 U/L (6-35); Albumin Level 3.3 g/dL (3.5-5.1); Alkaline Phosphatase 91 U/L (38-126); Aspartate Amino Transferase 15 U/L (14-36); Bilirubin,Total 0.3 mg/dL (0.2-1.3); Blood Urea Nitrogen 12 mg/dL (7-17); Calcium 7.8 mg/dL (8.4-10.2); Carbon Dioxide > 40 mmol/L (22-30); Chloride 87 mmol/L (98-107); Estimated CRCL calculation 79 ml/min; Estimated Glomerular Filt Rate > 60; Glucose 157 mg/dL (65-110); Magnesium 2.3 mg/dL (1.6-2.3); Phosphorus 2.5 mg/dL (2.5-4.5); Sodium 138 mmol/L (137-145)
[2022-01-26] MEDS: methylPREDNISolone SOD SUCC 125 MG VIAL 60 MG IV PUSH ×3 (05:40→17:22)
[2022-01-26 05:49] LABS: Hypochromasia 1+ (NORMAL); Platelet Estimate Adequate (Adequate)
[2022-01-26 06:12] LABS: Thyroid Stimulating Hormone Reflex 0.208 uIU/mL (0.465-4.68)
[2022-01-26 06:48] LABS: D Dimer 0.36 ug/mL (<0.48)
[2022-01-26] MEDS: ENOXAPARIN 40 MG/0.4 ML SYRINGE SUB-Q (08:03)
[2022-01-26] MEDS: PANTOPRAZOLE 40 MG TABLET PO ×2 (08:03→17:22)
[2022-01-26 08:23] LABS: Free T4 Free Thyroxine Reflex 1.29 ng/dL (0.78-2.19)
[2022-01-26] MEDS: FLUTICASONE/UMECLIDIN/VILANTER 100-62.5-25 MCG ELLIPTA 1 PUFF INHALATION (08:49)
[2022-01-26 11:16] LABS: Alveolar/Arterial O2 Gradient 46.7 mmHg; Base Excess ABG 17.6 mEq/l (+/-2.0); Fractional Inspired Oxygen 28 %; HCO3 ABG 45.7 mEq/l (22.0-26.0); Oxygen Content ABG 13.2 %vol (16.0-22.0); Oxygen Saturation ABG 89.6 % (95.0-100.0); Oxyhemoglobin 90.3 % THb (90.0-100.0); PO2 ABG 60.8 mmHg (80.0-100.0); PO2 FiO2 Ratio Arterial Blood 2.17 %; Total Hemoglobin 10.4 g/dL (12.0-18.0); pH ABG 7.385 (7.350-7.450)
[2022-01-26 11:17] LABS: Device NON-INVASIVE VENT; PCO2 ABG 78.1 mmHg (35.0-45.0); Site Drawn LEFT BRACHIAL
[2022-01-26 11:18] LABS: Non-Invasive Expiratory Pressure 10 CMH2O; Non-Invasive Inspiratory Pressure 20 CMH2O; Non-Invasive Vent Rate 18 /MIN
[2022-01-26 11:45] LABS: Total Triiodothyronine (T3) 0.96 NG/ML (0.97-1.69)
--- NOTE | 2022-01-26 13:58 | PM.IMPN ---
Progress Note: A&P Assessment and Plan (1) Acute exacerbation of chronic obstructive pulmonary disease (COPD): Code(s): J44.1 - Chronic obstructive pulmonary disease with (acute) exacerbation Status: Acute Assessment and Plan: -the patient had been prescribed prednisone outpatient but did not finish the taper. -the patient was also having problems with her trilogy at home and had to have it replaced. -Solu-Medrol IV -continue nebulizer treatments. -I did consult cissp as the patient stated that she has not had any titration of her trilogy at home. -continue with Trelegy Ellipta -continue with roflumilast 01/26/2022 interval history: patient with history of chronic respiratory failure presented with shortness of breath found to have hypercapnic respiratory failure patient was placed on BiPAP and CO2 is trending down, most likely patient had as her patient of COPD being treated with with methylprednisone and bronchodilator as well as azithromycin for atypical pneumonia, upon arrival patient CO2 was 94.6 and is trended down to 78.1, will adjust patient's BiPAP setting and will continue to monitor patient with ABG, patient will be seen by cissp and further recommendation to follow. (2) Acute hypokalemia: Code(s): E87.6 - Hypokalemia Status: Acute Assessment and Plan: -replace as necessary. She was given a replacement in the emergency room the IV. (3) Acute on chronic respiratory failure with hypoxia and hypercapnia: Code(s): J96.21 - Acute and chronic respiratory failure with hypoxia; J96.22 - Acute and chronic respiratory failure with hypercapnia Status: Acute Assessment and Plan: -the patient does wear oxygen at home as well as her trilogy. -although she has leukocytosis her chest x-ray does not show in pneumonia. However she recently started steroids which may have elevated her white count. -she is afebrile at this time. -repeat ABGs in the a.m.. -the patient is currently on a BiPAP. (4) Hyperlipidemia: Code(s): E78.5 - Hyperlipidemia, unspecified Status: Acute Assessment and Plan: -continue with atorvastatin (5) Hypomagnesemia: Code(s): E83.42 - Hypomagnesemia Status: Acute Assessment and Plan: -replace as necessary. She was given replacement in the emergency room. Recheck level in the a.m.. Subjective Date/time seen: 01/26/22 13:58 HPI-Narrative: This is a 66-year-old female patient who has a history of pulmonary hypertension, congestive heart failure COPD and chronic hypoxia with oxygen use at 2 L per nasal cannula.? The patient uses a trilogy at home with 3 L bled into it otherwise she wears 2 L at home at all times.? Over the last week she has had increased oxygen use and increased shortness of breath.? Her O2 saturations were dropping below 90% home.? The patient recently was given a prednisone taper by her PCP but she did not finish the taper.? The patient was having difficulty with her trilogy machine and called the company brought her a new 1 just a couple days ago.? She denied any fever chills or any chest pain.? No sore throat.? White count is 19.1 H&H is 10.6 and 35.9 which is her baseline.? PH initially was 7.339 and CO2 was 94.6.? The patient had a repeat ABG 7.322 CO2 91.7.? The patient became more awake she is currently on a BiPAP of 20/10.? Potassium was 2.9 which was replaced in the emergency room.? Magnesium was 1.5 which was replaced.? Troponin was negative x1.? Influenza A/B and COVID were all negative.? The patient is being admitted to observation status on the date of service of 01/25/2022. 01/26/2022 interval history: patient with history of chronic respiratory failure presented with shortness of breath found to have hypercapnic respiratory failure patient was placed on BiPAP and CO2 is trending down, most likely patient had as her patient of COPD being treated with with methylprednisone and bronchodilator as we
[2022-01-26] MEDS: ROFLUMILAST 500 MCG TABLET PO (15:21)
--- NOTE | 2022-01-26 18:08 | PM.CNPUL ---
Assessment and Plan Assessment and plan (1) Acute on chronic respiratory failure with hypoxia and hypercapnia: Code(s): J96.21 - Acute and chronic respiratory failure with hypoxia; J96.22 - Acute and chronic respiratory failure with hypercapnia Status: Acute (2) Acute exacerbation of chronic obstructive pulmonary disease (COPD): Code(s): J44.1 - Chronic obstructive pulmonary disease with (acute) exacerbation Status: Acute Assessment and Plan: 66-year-old female with advanced emphysema, chronic hypoxemic hypercapnic respiratory failure on home ventilatory support presented with shortness of breath related to COPD exacerbation. Patient has responded to current regimen of IV steroids BiPAP support and nebulized short-acting bronchodilators. On physical exam she has distant breath sounds but no wheezing. Plan: I have switched patient to oral prednisone starting in a.m., will continue with BiPAP support at night using lower pressures like 12/6 and same FiO2. Continue with nebulized short-acting bronchodilators, DVT prophylaxis. Will consider switching patient to her own home ventilator, starting tomorrow night. (3) COPD (chronic obstructive pulmonary disease): Qualifiers: COPD type: unspecified COPD Qualified Code(s): J44.9 - Chronic obstructive pulmonary disease, unspecified Code(s): J44.9 - Chronic obstructive pulmonary disease, unspecified Status: Acute History of Present Illness History of Present Illness Consult date: 01/26/22 Chief complaint: acute on chronic hypoxic hypercapnic resp failure, Narrative: This 66-year-old female presented with several day history of increasing shortness of breath. The patient has severe COPD with hypoxemic hypercapnic respiratory failure, chronically on home ventilatory support via Astral ventilator, on supplemental oxygen 3 liters/minute at night and 2 liters/minute with activities. patient was in her usual state of health until approximately several days prior to this hospitalization when she started to have shortness of breath and occasional wheezing. She has no fever chills hemoptysis night sweats or lower extremity edema. She had no cough. When evaluated in the emergency room she was found to have acute on chronic hypercapnic respiratory failure with pCO2 in the mid 90s mmHg and pH 7.33 patient has been treated with BiPAP support 20/10, supplemental oxygen, IV steroids, and short-acting bronchodilators. Currently she is doing better. She continues to have shortness of breath but less than before. She is sitting up in bed. Previous pulmonary function testing approximately 4 years ago showed FEV1 0.8 L or 32% predicted with severely reduced lung diffusion capacity at 38% predicted. On chest x-rays there has been chronic lung hyperinflation with flattened diaphragms. she was hospitalized last March with COPD exacerbation related to COVID-19 infection. Patient quit smoking approximately 5-6 years ago. Other medical history is is significant for hyperlipidemia. Review of Systems Review of Systems: all system review is negative except as noted in HPI and below. [facility] Past Medical History Medical History Asthma Chronic obstructive pulmonary disease with (acute) exacerbation Chronic respiratory failure with hypoxia and hypercapnia On home oxygen during the day and iVAPS at night Diastolic dysfunction Echocardiogram November 2016 Emphysema lung Former smoker, stopped smoking in distant past Hyperlipidemia Pulmonary hypertension Severe pulmonary hypertension with RVSP of 68 noted on echo from November 2016 Recurrent umbilical hernia Surgical History Surgical History History of bursectomy left elbow History of laparoscopic cholecystectomy (08/2017) History of tubal ligation History of umbilical hernia repair (08/2017)
[2022-01-27] VITALS (20 sets, daily range): BP systolic 128–170; BP diastolic 56–84; PULSE 78–115; RESP 16–20; TEMP 35.8–37.2; O2SAT 91–100
[2022-01-27] MEDS: ALBUTEROL SULFATE NEB 2.5 MG/3 ML INH INHALATION ×4 (01:38→21:43)
[2022-01-27] MEDS: IPRATROPIUM BR 0.02% INH SOLN 0.5 MG/2.5 ML VIAL INHALATION ×4 (01:38→21:42)
[2022-01-27 05:15] LABS: Blood Urea Nitrogen 13 mg/dL (7-17); Calcium 8.1 mg/dL (8.4-10.2); Carbon Dioxide > 40 mmol/L (22-30); Chloride 85 mmol/L (98-107); Estimated CRCL calculation 80 ml/min; Estimated Glomerular Filt Rate > 60; Glucose 123 mg/dL (65-110); Magnesium 1.9 mg/dL (1.6-2.3); Potassium 3.7 mmol/L (3.4-5.0); Sodium 134 mmol/L (137-145)
[2022-01-27 05:17] LABS: Hematocrit 32.2 % (37.0-47.0); Hemoglobin 9.5 g/dL (12.0-15.0); Mean Corpuscular HGB Conc 29.5 g/dl (32-36); Mean Corpuscular Hemoglobin 29.1 pg (26-34); Mean Corpuscular Volume 98.5 fl (80-100); Mean Platelet Volume 9.6 fl (7.4-10.4); Platelet Count Result 417 k/mm3 (150-375); Red Blood Count 3.27 M/mm3 (4.2-5.4); Red Cell Distribution Width 12.8 % (11.5-14.5); White Blood Count 14.7 K/mm3 (4.5-10.0)
[2022-01-27] MEDS: ROFLUMILAST 500 MCG TABLET PO (08:48)
[2022-01-27] MEDS: PANTOPRAZOLE 40 MG TABLET PO ×2 (08:48→16:55)
[2022-01-27] MEDS: ENOXAPARIN 40 MG/0.4 ML SYRINGE SUB-Q (08:49)
[2022-01-27] MEDS: ACETAMINOPHEN 500 MG TABLET 1000 MG PO ×3 (08:52→21:36)
[2022-01-27] MEDS: FLUTICASONE/UMECLIDIN/VILANTER 100-62.5-25 MCG ELLIPTA 1 PUFF INHALATION (09:20)
[2022-01-27] MEDS: predniSONE 20 MG TABLET 40 MG PO (09:59)
--- NOTE | 2022-01-27 11:13 | PM.PNPUL ---
Progress Note: A&P Assessment and Plan (1) Acute on chronic respiratory failure with hypoxia and hypercapnia: Code(s): J96.21 - Acute and chronic respiratory failure with hypoxia; J96.22 - Acute and chronic respiratory failure with hypercapnia Status: Acute Assessment and Plan: 66-year-old female with very severe COPD, hypoxemic hypercapnic respiratory failure on home ventilatory support is being treated for COPD exacerbation. patient's clinical status improving slowly. She is now on oral steroids and nebulized short-acting bronchodilators. Patient has the Astral 150 home ventilator with her but using hospital BiPAP. She slept well on a BiPAP last night. Plan: continue with current regimen and BiPAP support via hospital device. Will switch patient to her home ventilator just prior to DC home. Will do ApneaLink on home ventilator prior to DC home. (2) Acute exacerbation of chronic obstructive pulmonary disease (COPD): Code(s): J44.1 - Chronic obstructive pulmonary disease with (acute) exacerbation Status: Acute (3) Emphysema lung: Qualifiers: Emphysema type: unspecified Qualified Code(s): J43.9 - Emphysema, unspecified Code(s): J43.9 - Emphysema, unspecified Status: Acute Subjective Date/time seen: 01/27/22 11:13 patient used BiPAP support last night. She has no new respiratory symptoms this morning. Sitting up in bed. Review of Systems Review of Systems: all system review is negative except as noted in HPI and below. Exam Narrative: GENERAL APPEARANCE: Well developed, well nourished, alert and cooperative, and appears to be in mild respiratory distress while breathing supplemental oxygen sitting up in bed SKIN: Inspection of the skin reveals no rashes, ulcerations or petechiae. HEENT: Sclerae anicteric and conjunctivae pink and moist. Extraocular movements were intact and pupils were equal, round. The oral mucosa, hard and soft palate, tongue and posterior pharynx were normal. NECK: Supple. There was no thyroid enlargement, and no tenderness, or masses were felt. CHEST: Normal AP diameter and normal contour without any kyphoscoliosis. hyperinflated chest LUNGS: Auscultation of the lungs revealed distant breath sounds bilaterally no wheezing CARDIAC: There was a regular rate and rhythm without any murmurs ABD: soft nontender LYMPH NODES: No lymphadenopathy was appreciated in the neck EXTREMITIES: No cyanosis, clubbing or edema. NEUROLOGIC: Alert and oriented x 3. Normal affect. Objective Data Vital Signs Vital Signs: Vital Signs - 24 hr 01/26/22 11:19 01/26/22 12:00 01/26/22 15:02 Temperature 36.4 C L Pulse Rate 90 97 90 Respiratory Rate 20 25 H 20 Blood Pressure 135/71 Pulse Oximetry 92 92 Oxygen Delivery BiPAP Oxygen Flow Rate Fraction of Inspired Oxygen 01/26/22 15:05 01/26/22 15:14 01/26/22 12:00 Temperature Pulse Rate 80 89 95 Respiratory Rate 20 20 Blood Pressure Pulse Oximetry 92 Oxygen Delivery BiPAP Oxygen Flow Rate Fraction of Inspired Oxygen 01/26/22 14:00 01/26/22 12:00 01/26/22 16:00 Temperature Pulse Rate 91 Respiratory Rate Blood Pressure Pulse Oximetry Oxygen Delivery BiPAP BiPAP Oxygen Flow Rate Fraction of Inspired Oxygen 01/26/22 16:00 01/26/22 16:42 01/26/22 16:00 Temperature 36.8 C Pulse Rate 92 96 Respiratory Rate 21 H Blood Pressure 147/74 H Pulse Oximetry 94 93 Oxygen Delivery Nasal Cannula Oxygen Flow Rate 3 Fraction of Inspired Oxygen 01/26/22 18:00 01/26/22 20:07 01/26/22 20:10 Temperature Pulse Rate 95 85 Respiratory Rate 20 Blood Pressure Pulse Oximetry 95 Oxygen Delivery Nasal Cannula Oxygen Flow Rate 3 Fraction of Inspired Oxygen 01/26/22 20:29 01/26/22 20:31 01/26/22 20:00 Temperature 36.7 C Pulse Rate 85 85 87 Respiratory Rate 20 20 Blood Pressure 156/63 H Pulse Oximetry 96 Oxygen Deli
[2022-01-27] MEDS: POTASSIUM CHLORIDE 20 MEQ TABLET 40 MEQ PO (11:34)
--- NOTE | 2022-01-27 12:12 | PC.NURSE ---
This patient, Zainab Maya, was transferred to [ [facility]] on 01/27/22 at 1212. Personal belongings sent with patient. Report given to [Emily ]. Appropriate documentation sent with patient.
--- NOTE | 2022-01-27 15:31 | PC.NURSE ---
This patient, Zainab Maya, was received from [id number] on 01/27/22 at 1300. Patient/family oriented to unit policies and routines.
--- NOTE | 2022-01-27 16:40 | PM.IMPN ---
Progress Note: A&P Assessment and Plan (1) Acute exacerbation of chronic obstructive pulmonary disease (COPD): Code(s): J44.1 - Chronic obstructive pulmonary disease with (acute) exacerbation Status: Acute Assessment and Plan: -the patient had been prescribed prednisone outpatient but did not finish the taper. -the patient was also having problems with her trilogy at home and had to have it replaced. -Solu-Medrol IV -continue nebulizer treatments. -I did consult tomato grader as the patient stated that she has not had any titration of her trilogy at home. -continue with Trelegy Ellipta -continue with roflumilast 01/27/2022 interval history: patient with history of chronic respiratory failure presented with shortness of breath found to have hypercapnic respiratory failure patient was placed on BiPAP and CO2 is trending down, most likely patient had as her patient of COPD being treated with with methylprednisone and bronchodilator as well as azithromycin for atypical pneumonia, upon arrival patient CO2 was 94.6 and is trended down to 78.1, today patient was seen by pulmonology and tapered methylprednisone to prednisone 40 mg q.d., patient respiratory symptoms are improved recommended patient can be nasal cannula during daytime and uses BiPAP at night, adjusted patient's BiPAP setting and will continue to monitor patient with ABG, patient was seen by tomato grader and further recommendation to follow. (2) Acute hypokalemia: Code(s): E87.6 - Hypokalemia Status: Acute Assessment and Plan: -replace as necessary. She was given a replacement in the emergency room the IV. (3) Acute on chronic respiratory failure with hypoxia and hypercapnia: Code(s): J96.21 - Acute and chronic respiratory failure with hypoxia; J96.22 - Acute and chronic respiratory failure with hypercapnia Status: Acute Assessment and Plan: -the patient does wear oxygen at home as well as her trilogy. -although she has leukocytosis her chest x-ray does not show in pneumonia. However she recently started steroids which may have elevated her white count. -she is afebrile at this time. -repeat ABGs in the a.m.. -the patient is currently on a BiPAP. (4) Hyperlipidemia: Code(s): E78.5 - Hyperlipidemia, unspecified Status: Acute Assessment and Plan: -continue with atorvastatin (5) Hypomagnesemia: Code(s): E83.42 - Hypomagnesemia Status: Acute Assessment and Plan: -replace as necessary. She was given replacement in the emergency room. Recheck level in the a.m.. Subjective Date/time seen: 01/27/22 16:40 01/27/2022 interval history: patient with history of chronic respiratory failure presented with shortness of breath found to have hypercapnic respiratory failure patient was placed on BiPAP and CO2 is trending down, most likely patient had as her patient of COPD being treated with with methylprednisone and bronchodilator as well as azithromycin for atypical pneumonia, upon arrival patient CO2 was 94.6 and is trended down to 78.1, today patient was seen by pulmonology and tapered methylprednisone to prednisone 40 mg q.d., patient respiratory symptoms are improved recommended patient can be nasal cannula during daytime and uses BiPAP at night, adjusted patient's BiPAP setting and will continue to monitor patient with ABG, patient was seen by tomato grader and further recommendation to follow. Review of Systems Review of Systems: All systems reviewed & are unremarkable except as noted in HPI and below Exam Narrative: Patient is comfortable, NAD HEENT: eyes are clear and none icteric, BiPAP in place LUNGS: bilateral fair air entry with rhonchi and wheeze ABD: distended Lower extremities: no edema SKIN: nonjaundiced Neuro: grossly intact. Objective Data Vital Signs Vital Signs: Vital Signs - 24 hr 01/26/22 16:42 01/26/22 18:00 01/26/22 20:07 Temperature Pulse Rate 95 85
[2022-01-27] MEDS: ATORVASTATIN 20 MG TABLET PO (21:36)
[2022-01-27] MEDS: hydrALAZINE HCL 20 MG/ML VIAL 10 MG IV PUSH (22:57)
[2022-01-27] MEDS: LORazepam INJ (*CRX) 2 MG/ML VIAL 0.5 MG IV PUSH (23:26)
[2022-01-28] VITALS (18 sets, daily range): BP systolic 140–146; BP diastolic 69–85; PULSE 79–124; RESP 18–29; TEMP 36.6–36.8; O2SAT 70–99
[2022-01-28] MEDS: ALBUTEROL SULFATE NEB 2.5 MG/3 ML INH INHALATION ×4 (03:50→19:54)
[2022-01-28] MEDS: IPRATROPIUM BR 0.02% INH SOLN 0.5 MG/2.5 ML VIAL INHALATION ×4 (03:50→19:54)
[2022-01-28 06:10] LABS: Hematocrit 33.8 % (37.0-47.0); Mean Corpuscular HGB Conc 29.6 g/dl (32-36); Mean Corpuscular Hemoglobin 29.2 pg (26-34); Mean Corpuscular Volume 98.8 fl (80-100); Mean Platelet Volume 9.1 fl (7.4-10.4); Platelet Count Result 411 k/mm3 (150-375); Red Blood Count 3.42 M/mm3 (4.2-5.4); Red Cell Distribution Width 13.1 % (11.5-14.5); White Blood Count 16.6 K/mm3 (4.5-10.0)
[2022-01-28 07:00] LABS: Blood Urea Nitrogen 19 mg/dL (7-17); Calcium 7.9 mg/dL (8.4-10.2); Carbon Dioxide > 40 mmol/L (22-30); Chloride 83 mmol/L (98-107); Estimated CRCL calculation 78 ml/min; Estimated Glomerular Filt Rate > 60; Glucose 118 mg/dL (65-110); Magnesium 1.8 mg/dL (1.6-2.3); Potassium 3.9 mmol/L (3.4-5.0); Sodium 134 mmol/L (137-145)
[2022-01-28] MEDS: methylPREDNISolone SOD SUCC 125 MG VIAL 80 MG IV PUSH (09:18)
--- NOTE | 2022-01-28 10:02 | PM.PNPUL ---
Progress Note: A&P Assessment and Plan (1) Acute on chronic respiratory failure with hypoxia and hypercapnia: Code(s): J96.21 - Acute and chronic respiratory failure with hypoxia; J96.22 - Acute and chronic respiratory failure with hypercapnia Status: Acute Assessment and Plan: 66-year-old female with very severe COPD, hypoxemic hypercapnic respiratory failure on home ventilatory support is being treated for COPD exacerbation. is been a worsening of respiratory status over last 24 hours. The patient has more shortness of breath, and on physical exam there has been poor air entry with over inflated lungs and expiratory wheezing which is new since yesterday. She has no fever chills chest pain or other respiratory symptoms. Chest x-ray raised a question of faint infiltrate in right lower lobe. Chronic COPD changes as before on chest x-ray. The patient was placed back on BiPAP support and received nebulized short-acting bronchodilator treatment. Following initiation of BiPAP support the patient felt better Plan: Patient was switched to IV steroids started empirically on IV antibiotics. Continue with BiPAP support during the day as well. Will repeat blood gases. Will transfer patient back to IMU. (2) Acute exacerbation of chronic obstructive pulmonary disease (COPD): Code(s): J44.1 - Chronic obstructive pulmonary disease with (acute) exacerbation Status: Acute (3) Emphysema lung: Qualifiers: Emphysema type: unspecified Qualified Code(s): J43.9 - Emphysema, unspecified Code(s): J43.9 - Emphysema, unspecified Status: Acute Subjective Date/time seen: 01/28/22 10:02 Has more shortness of breath this a.m.. Did not sleep well last night. Sitting up in bed bracing arms afebrile no cough or sputum production no chest pain. O2 saturation on 4 liters/minute down this a.m.. She was placed on high FiO2 last night Review of Systems Review of Systems: All systems reviewed & are unremarkable except as noted in HPI and below Exam Narrative: GENERAL APPEARANCE: Well developed, well nourished, alert and cooperative, and appears to be in moderate respiratory distress while breathing supplemental oxygen sitting up in bed SKIN: Inspection of the skin reveals no rashes, ulcerations or petechiae. HEENT: Sclerae anicteric and conjunctivae pink and moist. Extraocular movements were intact and pupils were equal, round. The oral mucosa, hard and soft palate, tongue and posterior pharynx were normal. NECK: Supple. There was no thyroid enlargement, and no tenderness, or masses were felt. CHEST: Normal AP diameter and normal contour without any kyphoscoliosis. hyperinflated chest LUNGS: Auscultation of the lungs revealed poor air entry bilaterally mild expiratory wheezing, new since yesterday CARDIAC: There was a regular rate and rhythm without any murmurs ABD: soft nontender LYMPH NODES: No lymphadenopathy was appreciated in the neck EXTREMITIES: No cyanosis, clubbing or edema. NEUROLOGIC: Alert and oriented x 3. Normal affect. Objective Data Vital Signs Vital Signs: Vital Signs - 24 hr 01/27/22 12:00 01/27/22 15:31 01/27/22 14:00 Temperature 36.7 C 35.8 C L Pulse Rate 113 H 115 H Respiratory Rate 20 20 Blood Pressure 158/82 H 164/77 H Pulse Oximetry 92 91 Oxygen Delivery Nasal Cannula Oxygen Flow Rate 2 01/27/22 15:00 01/27/22 15:11 01/27/22 21:31 Temperature 36.5 C Pulse Rate 96 99 111 H Respiratory Rate 18 20 18 Blood Pressure 170/84 H Pulse Oximetry 93 Oxygen Delivery Oxygen Flow Rate 01/27/22 21:35 01/27/22 21:45 01/28/22 01:20 Temperature Pulse Rate 101 H 111 H 79 Respiratory Rate 20 20 19 Blood Pressure Pulse Oximetry 93 Oxygen Delivery BiPAP Oxygen Flow Rate 01/28/22 03:50 01/28/22 04:02 01/28/22 05:24 Temperature 36.6 C Pulse Rate 97 99 124 H Respiratory Rate 20 20 18 Blood Pressure 140/69 Pulse Oximetry 99 Oxyg
[2022-01-28] MEDS: ENOXAPARIN 40 MG/0.4 ML SYRINGE SUB-Q (10:04)
--- NOTE | 2022-01-28 11:18 | PM.IMPN ---
Progress Note: A&P Assessment and Plan (1) Acute exacerbation of chronic obstructive pulmonary disease (COPD): Code(s): J44.1 - Chronic obstructive pulmonary disease with (acute) exacerbation Status: Acute Assessment and Plan: -continue nebulizer treatments. - area forester consulted -continue with Trelegy Ellipta -continue with roflumilast - patient was seen by pulmonology and methylprednisone restarted - will transfer patient to IMU for close monitoring (2) Acute on chronic respiratory failure with hypoxia and hypercapnia: Code(s): J96.21 - Acute and chronic respiratory failure with hypoxia; J96.22 - Acute and chronic respiratory failure with hypercapnia Status: Acute Assessment and Plan: -the patient does wear oxygen at home as well as her trilogy. -the patient is currently on a BiPAP. (3) Hyperlipidemia: Code(s): E78.5 - Hyperlipidemia, unspecified Status: Acute Assessment and Plan: -continue with atorvastatin Subjective Date/time seen: 01/28/22 11:18 patient states she is doing okay. She is currently on BiPAP. Breathing is not much improved Review of Systems Review of Systems: All systems reviewed & are unremarkable except as noted in HPI and below Exam Narrative: GENERAL APPEARANCE: Well developed, well nourished, alert and cooperative, and appears to be in moderate respiratory distress SKIN: Inspection of the skin reveals no rashes, ulcerations or petechiae. HEENT: Sclerae anicteric and conjunctivae pink and moist. Extraocular movements were intact and pupils were equal, round. The oral mucosa, hard and soft palate, tongue and posterior pharynx were normal. NECK: Supple. There was no thyroid enlargement, and no tenderness, or masses were felt. CHEST: Normal AP diameter and normal contour without any kyphoscoliosis. hyperinflated chest LUNGS: Auscultation of the lungs revealed poor air entry bilaterally mild expiratory wheezing, new since yesterday CARDIAC: There was a regular rate and rhythm without any murmurs ABD: soft nontender LYMPH NODES: No lymphadenopathy was appreciated in the neck EXTREMITIES: No cyanosis, clubbing or edema. NEUROLOGIC: Alert and oriented x 3. Normal affect. Objective Data Vital Signs Vital Signs: Vital Signs - 24 hr 01/27/22 12:00 01/27/22 15:31 01/27/22 14:00 Temperature 98.1 F 96.5 F L Pulse Rate 113 H 115 H Respiratory Rate 20 20 Blood Pressure 158/82 H 164/77 H Pulse Oximetry 92 91 Oxygen Delivery Nasal Cannula Oxygen Flow Rate 2 01/27/22 15:00 01/27/22 15:11 01/27/22 21:31 Temperature 97.7 F Pulse Rate 96 99 111 H Respiratory Rate 18 20 18 Blood Pressure 170/84 H Pulse Oximetry 93 Oxygen Delivery Oxygen Flow Rate 01/27/22 21:35 01/27/22 21:45 01/28/22 01:20 Temperature Pulse Rate 101 H 111 H 79 Respiratory Rate 20 20 19 Blood Pressure Pulse Oximetry 93 Oxygen Delivery BiPAP Oxygen Flow Rate 01/28/22 03:50 01/28/22 04:02 01/28/22 05:24 Temperature 97.8 F Pulse Rate 97 99 124 H Respiratory Rate 20 20 18 Blood Pressure 140/69 Pulse Oximetry 99 Oxygen Delivery Oxygen Flow Rate 01/28/22 07:26 01/28/22 09:13 01/28/22 09:13 Temperature Pulse Rate 113 H 110 H Respiratory Rate 25 H 27 H Blood Pressure Pulse Oximetry 94 Oxygen Delivery Nasal Cannula BiPAP Oxygen Flow Rate 2 01/28/22 08:00 Temperature Pulse Rate Respiratory Rate Blood Pressure Pulse Oximetry 80 L Oxygen Delivery Nasal Cannula Oxygen Flow Rate 4 Intake/Output Intake/Output: Intake & Output 01/25/22 01/26/22 01/27/22 01/28/22 23:59 23:59 23:59 23:59 Intake Total 570 / 570 1175 / 1175 1345 / 1345 836 / 836 Output Total 450 / 450 300 / 300 600 / 600 Balance 570 / 570 725 / 725 1045 / 1045 236 / 236 Meds/Results Medications: Active Medications Generic Name Dose Route Start Last Admin Trade Name Freq PRN Reason Stop Dose Admin Burt
[2022-01-28 11:28] LABS: NT Pro B Type Natriuretic Pept 1460 pg/mL (5-100)
[2022-01-28] MEDS: ACETAMINOPHEN 500 MG TABLET 1000 MG PO ×2 (13:55→21:06)
[2022-01-28] MEDS: ROFLUMILAST 500 MCG TABLET PO (13:57)
[2022-01-28] MEDS: methylPREDNISolone SOD SUCC 125 MG VIAL 60 MG IV PUSH ×2 (13:57→21:02)
[2022-01-28 15:40] LABS: Alveolar/Arterial O2 Gradient 52.6 mmHg; Base Excess ABG 20.4 mEq/l (+/-2.0); Fractional Inspired Oxygen 36 %; HCO3 ABG 50.7 mEq/l (22.0-26.0); Oxygen Saturation ABG 95.5 % (95.0-100.0); Oxyhemoglobin 95.6 % THb (90.0-100.0); PO2 ABG 89.5 mmHg (80.0-100.0); PO2 FiO2 Ratio Arterial Blood 2.49 %; Total Hemoglobin 11.1 g/dL (12.0-18.0); pH ABG 7.328 (7.350-7.450)
[2022-01-28 15:44] LABS: Device NASAL CANNULA; Modified Allen's Test Pass; PCO2 ABG 98.8 mmHg (35.0-45.0); Site Drawn LEFT RADIAL
[2022-01-28] MEDS: PANTOPRAZOLE 40 MG TABLET PO (17:09)
--- NOTE | 2022-01-28 19:39 | PC.NURSE ---
This patient, Zainab Maya, was transferred to IMU [facility] on 01/28/22 at 1825. Personal belongings sent with patient. Report given to Maria Antonia. Appropriate documentation sent with patient.
--- NOTE | 2022-01-28 19:42 | PC.NURSE ---
1829- received pt from 3rd med / surg- pt on 4l/nc- spo2 94%- humidification placed on O2; pt wants to eat dinner before wearing BIPAP- pt oriented to room and routines of floor. VSS- denies pain ;
[2022-01-28] MEDS: ATORVASTATIN 20 MG TABLET PO (21:03)
[2022-01-29] VITALS (24 sets, daily range): BP systolic 126–171; BP diastolic 60–81; PULSE 80–131; RESP 18–24; TEMP 36.4–37.3; O2SAT 90–99
--- NOTE | 2022-01-29 00:32 | PC.NURSE ---
patient sleeping, with bipap on. holding xanax at this time.
[2022-01-29] MEDS: ALBUTEROL SULFATE NEB 2.5 MG/3 ML INH INHALATION (02:29)
[2022-01-29] MEDS: IPRATROPIUM BR 0.02% INH SOLN 0.5 MG/2.5 ML VIAL INHALATION (02:29)
--- NOTE | 2022-01-29 04:58 | PC.NURSE ---
PATIENT HAD A PANIC ATTACH WHEN FIRST PLACED ON BIPAP. WE THOUGHT IT WAS THE BIPAP, BUT SHE ALSO RECEIVED A BREATHING TREATMENT WHEN THEY FIRST PUT IT ON. I DID GET A XANAX FOR PATIENT SO SHE COULD BE COMFORTABLE ON THE BIPAP. WE TRIED IT AGAIN AFTER A COUPLE HOURS AND SHE HAD CALMED DOWN. SHE FELL RIGHT TO SLEEP ON THE BIPAP AND WAS COMFORTABLE, SO SHE DID NOT RECEIVE THE XANAX. AROUND 2 AM SHE RECEIVED ANOTHER BREATHING TREATMENT AND THE SAME THING HAPPENED. SHE WAS PLACED ON NC UNTIL SHE WAS ABLE TO TOLERATE THE BIPAP IT TOOK ALMOST 2 HOURS. BOTH TIMES THE PATIENTS O2 SAT DECREASED INTO THE 70'S DURING EACH EPISODE. I TALKED TO DR FORDE, WE CHANGED HER FROM ALBUTEROL TO XOPENEX, LIKE SHE TAKES AT HOME. WE WILL CONTINUE TO MONITOR.
[2022-01-29 05:02] LABS: Hematocrit 31.6 % (37.0-47.0); Hemoglobin 9.5 g/dL (12.0-15.0); Mean Corpuscular HGB Conc 30.1 g/dl (32-36); Mean Corpuscular Hemoglobin 28.7 pg (26-34); Mean Corpuscular Volume 95.5 fl (80-100); Mean Platelet Volume 9.5 fl (7.4-10.4); Platelet Count Result 381 k/mm3 (150-375); Red Blood Count 3.31 M/mm3 (4.2-5.4); Red Cell Distribution Width 12.8 % (11.5-14.5)
[2022-01-29 05:10] LABS: Blood Urea Nitrogen 18 mg/dL (7-17); Calcium 8.3 mg/dL (8.4-10.2); Carbon Dioxide > 40 mmol/L (22-30); Chloride 82 mmol/L (98-107); Estimated CRCL calculation 68 ml/min; Estimated Glomerular Filt Rate > 60; Glucose 204 mg/dL (65-110); Magnesium 1.8 mg/dL (1.6-2.3); Potassium 3.8 mmol/L (3.4-5.0); Sodium 134 mmol/L (137-145)
[2022-01-29] MEDS: methylPREDNISolone SOD SUCC 125 MG VIAL 60 MG IV PUSH ×3 (05:45→21:17)
[2022-01-29] MEDS: LEVALBUTEROL NEB 1.25 MG/3 ML 0.63 MG INHALATION (07:59)
[2022-01-29] MEDS: PANTOPRAZOLE 40 MG TABLET PO ×2 (08:30→18:00)
[2022-01-29] MEDS: ROFLUMILAST 500 MCG TABLET PO (08:30)
[2022-01-29] MEDS: ENOXAPARIN 40 MG/0.4 ML SYRINGE SUB-Q (08:31)
--- NOTE | 2022-01-29 09:06 | PM.PNPUL ---
Progress Note: A&P Assessment and Plan (1) Acute on chronic respiratory failure with hypoxia and hypercapnia: Code(s): J96.21 - Acute and chronic respiratory failure with hypoxia; J96.22 - Acute and chronic respiratory failure with hypercapnia Status: Acute Assessment and Plan: 66-year-old female with very severe COPD, hypoxemic hypercapnic respiratory failure on home ventilatory support is being treated for COPD exacerbation. There was worsening of patient's clinical condition yesterday with increasing shortness of breath, worsening hypercapnic respiratory failure for which the patient was placed back on BiPAP support started on IV antibiotics and IV steroids and transfer back to IMU. Currently she is doing better. She is off BiPAP support this a.m. on just supplemental oxygen at 3 liters/minute. On physical exam there is better air entry compared to yesterday. Lung still hyperinflated with minimal expiratory wheezing. Plan: Will continue with current regimen of IV antibiotics IV steroids nebulized short-acting bronchodilators and BiPAP support at night and p.r.n. during day. will repeat arterial blood gases. Lasix 20 mg IV was given. Repeat chest x-ray in a.m. (2) Acute exacerbation of chronic obstructive pulmonary disease (COPD): Code(s): J44.1 - Chronic obstructive pulmonary disease with (acute) exacerbation Status: Acute (3) Emphysema lung: Qualifiers: Emphysema type: unspecified Qualified Code(s): J43.9 - Emphysema, unspecified Code(s): J43.9 - Emphysema, unspecified Status: Acute Subjective Date/time seen: 01/29/22 09:06 Patient developed increasing shortness of breath and worsening of hypercapnic respiratory failure yesterday. She was transferred back to IMU, placed on continuous BiPAP support, started on IV antibiotics and steroids. Chest x-ray showed possible small infiltrates right lower lobe consistent with pneumonia. currently the patient is doing better. She has less shortness of breath while sitting up in bed on just supplemental oxygen. Has been fluid positive over the last couple of days. Review of Systems Review of Systems: All systems reviewed & are unremarkable except as noted in HPI and below Exam Narrative: GENERAL APPEARANCE: Well developed, well nourished, alert and cooperative, and appears to be in moderate respiratory distress SKIN: Inspection of the skin reveals no rashes, ulcerations or petechiae. HEENT: Sclerae anicteric and conjunctivae pink and moist. Extraocular movements were intact and pupils were equal, round. The oral mucosa, hard and soft palate, tongue and posterior pharynx were normal. NECK: Supple. There was no thyroid enlargement, and no tenderness, or masses were felt. CHEST: Normal AP diameter and normal contour without any kyphoscoliosis. hyperinflated chest LUNGS: Auscultation of the lungs revealed Better air entry bilaterally mild expiratory wheezing. CARDIAC: There was a regular rate and rhythm without any murmurs ABD: soft nontender LYMPH NODES: No lymphadenopathy was appreciated in the neck EXTREMITIES: No cyanosis, clubbing or edema. NEUROLOGIC: Alert and oriented x 3. Normal affect. Objective Data Vital Signs Vital Signs: Vital Signs - 24 hr 01/28/22 09:13 01/28/22 09:13 01/28/22 12:30 Temperature Pulse Rate 113 H 110 H Respiratory Rate 25 H 27 H Blood Pressure Pulse Oximetry 94 96 Oxygen Delivery BiPAP Nasal Cannula Oxygen Flow Rate 4 Fraction of Inspired Oxygen 01/28/22 12:37 01/28/22 13:00 01/28/22 13:11 Temperature Pulse Rate 92 108 H 101 H Respiratory Rate 26 H 24 H Blood Pressure Pulse Oximetry 96 Oxygen Delivery Oxygen Flow Rate Fraction of Inspired Oxygen 01/28/22 14:07 01/28/22 15:34 01/28/22 18:45 Temperature 36.8 C Pulse Rate 118 H 108 H 105 H Respiratory Rate 20 29 H Blood Pressure 146/78 H 145/85 H Pulse Oximetry 96 88 L 94 Oxygen Deliv
[2022-01-29] MEDS: FUROSEMIDE INJ 40 MG/4 ML VIAL 20 MG IV PUSH (09:13)
[2022-01-29] MEDS: FLUTICASONE/UMECLIDIN/VILANTER 100-62.5-25 MCG ELLIPTA 1 PUFF INHALATION (09:25)
--- NOTE | 2022-01-29 13:06 | PM.IMPN ---
Progress Note: A&P Assessment and Plan (1) Acute exacerbation of chronic obstructive pulmonary disease (COPD): Code(s): J44.1 - Chronic obstructive pulmonary disease with (acute) exacerbation Status: Acute Assessment and Plan: -continue nebulizer treatment, Antibiotics, steroids, inhalers - supervisor gear repair consulted - appreciate input - patient feels like the Xopenex nebulizer is making her breathing worse. I changed these to p.r.n. (2) Acute on chronic respiratory failure with hypoxia and hypercapnia: Code(s): J96.21 - Acute and chronic respiratory failure with hypoxia; J96.22 - Acute and chronic respiratory failure with hypercapnia Status: Acute Assessment and Plan: -the patient does wear oxygen at home as well as her trilogy. -the patient is currently on a BiPAP. - monitor ABG (3) Hyperlipidemia: Code(s): E78.5 - Hyperlipidemia, unspecified Status: Acute Assessment and Plan: -continue with atorvastatin Subjective Date/time seen: 01/29/22 13:06 still short of breath. ABG noted. Exam Narrative: GENERAL APPEARANCE: Well developed, well nourished, alert and cooperative, and appears to be in moderate respiratory distress SKIN: Inspection of the skin reveals no rashes, ulcerations or petechiae. HEENT: Sclerae anicteric and conjunctivae pink and moist. Extraocular movements were intact and pupils were equal, round. The oral mucosa, hard and soft palate, tongue and posterior pharynx were normal. NECK: Supple. There was no thyroid enlargement, and no tenderness, or masses were felt. CHEST: Normal AP diameter and normal contour without any kyphoscoliosis. hyperinflated chest LUNGS: Auscultation of the lungs revealed poor air entry bilaterally mild expiratory wheezing, new since yesterday CARDIAC: There was a regular rate and rhythm without any murmurs ABD: soft nontender LYMPH NODES: No lymphadenopathy was appreciated in the neck EXTREMITIES: No cyanosis, clubbing or edema. NEUROLOGIC: Alert and oriented x 3. Normal affect. Objective Data Vital Signs Vital Signs: Vital Signs - 24 hr 01/28/22 13:11 01/28/22 14:07 01/28/22 15:34 Temperature 98.3 F Pulse Rate 101 H 118 H 108 H Respiratory Rate 24 H 20 29 H Blood Pressure 146/78 H Pulse Oximetry 96 88 L Oxygen Delivery BiPAP Oxygen Flow Rate Fraction of Inspired Oxygen 01/28/22 18:45 01/28/22 18:45 01/28/22 20:41 Temperature 98.0 F Pulse Rate 105 H 110 H 101 H Respiratory Rate 18 Blood Pressure 145/85 H 144/77 H Pulse Oximetry 94 97 Oxygen Delivery Oxygen Flow Rate Fraction of Inspired Oxygen 01/28/22 20:00 01/28/22 20:00 01/28/22 19:54 Temperature Pulse Rate 113 H 118 H 120 H Respiratory Rate 18 26 H Blood Pressure Pulse Oximetry 97 70 L Oxygen Delivery Nasal Cannula BiPAP Oxygen Flow Rate 4 Fraction of Inspired Oxygen 50 01/28/22 19:54 01/28/22 19:54 01/28/22 22:00 Temperature Pulse Rate 114 H 114 H 113 H Respiratory Rate 26 H 26 H Blood Pressure Pulse Oximetry 96 Oxygen Delivery Nasal Cannula Oxygen Flow Rate 4 Fraction of Inspired Oxygen 01/28/22 22:20 01/29/22 00:00 01/29/22 00:00 Temperature 98.1 F Pulse Rate 95 95 89 Respiratory Rate 22 H 22 H 18 Blood Pressure 141/68 H Pulse Oximetry 97 97 93 Oxygen Delivery BiPAP BiPAP Oxygen Flow Rate Fraction of Inspired Oxygen 50 01/29/22 00:00 01/29/22 02:00 01/29/22 02:30 Temperature Pulse Rate 89 87 88 Respiratory Rate 19 Blood Pressure Pulse Oximetry 95 Oxygen Delivery BiPAP Oxygen Flow Rate Fraction of Inspired Oxygen 01/29/22 02:30 01/29/22 02:52 01/29/22 04:00 Temperature 97.6 F Pulse Rate 88 103 H 111 H Respiratory Rate 19 18 Blood Pressure 171/79 H Pulse Oximetry 98 Oxygen Delivery Oxygen Flow Rate Fraction of Inspired Oxygen 01/29/22 04:00 01/29/22 04:30 01/29/22 06:00 Temperature Pulse Rate
[2022-01-29 13:41] LABS: Alveolar/Arterial O2 Gradient 70.1 mmHg; Base Excess ABG 23.3 mEq/l (+/-2.0); Fractional Inspired Oxygen 32 %; HCO3 ABG 51.4 mEq/l (22.0-26.0); Oxygen Content ABG 14.7 %vol (16.0-22.0); Oxygen Saturation ABG 93.2 % (95.0-100.0); Oxyhemoglobin 93.1 % THb (90.0-100.0); PO2 ABG 68.1 mmHg (80.0-100.0); PO2 FiO2 Ratio Arterial Blood 2.13 %; Total Hemoglobin 11.2 g/dL (12.0-18.0); pH ABG 7.443 (7.350-7.450)
[2022-01-29 13:44] LABS: Device NASAL CANNULA; Modified Allen's Test Pass; PCO2 ABG 76.9 mmHg (35.0-45.0); Site Drawn LEFT RADIAL
[2022-01-29] MEDS: ATORVASTATIN 20 MG TABLET PO (21:18)
[2022-01-29] MEDS: hydrOXYzine HCL 25 MG TABLET PO (21:18)
[2022-01-29] MEDS: ACETAMINOPHEN 500 MG TABLET 1000 MG PO (21:22)
[2022-01-30] VITALS (17 sets, daily range): BP systolic 145–164; BP diastolic 66–79; PULSE 82–112; RESP 18–22; TEMP 36.2–37.2; O2SAT 95–99
[2022-01-30 05:12] LABS: Blood Urea Nitrogen 24 mg/dL (7-17); Calcium 7.9 mg/dL (8.4-10.2); Carbon Dioxide > 40 mmol/L (22-30); Chloride 83 mmol/L (98-107); Estimated CRCL calculation 78 ml/min; Estimated Glomerular Filt Rate > 60; Glucose 137 mg/dL (65-110); Magnesium 1.8 mg/dL (1.6-2.3); Potassium 4.4 mmol/L (3.4-5.0); Sodium 131 mmol/L (137-145)
[2022-01-30 05:14] LABS: Hematocrit 31.1 % (37.0-47.0); Hemoglobin 9.1 g/dL (12.0-15.0); Mean Corpuscular HGB Conc 29.3 g/dl (32-36); Mean Corpuscular Hemoglobin 28.8 pg (26-34); Mean Corpuscular Volume 98.4 fl (80-100); Mean Platelet Volume 9.7 fl (7.4-10.4); Platelet Count Result 378 k/mm3 (150-375); Red Blood Count 3.16 M/mm3 (4.2-5.4); Red Cell Distribution Width 12.9 % (11.5-14.5); White Blood Count 11.4 K/mm3 (4.5-10.0)
[2022-01-30] MEDS: methylPREDNISolone SOD SUCC 125 MG VIAL 60 MG IV PUSH ×2 (05:35→08:12)
[2022-01-30] MEDS: ROFLUMILAST 500 MCG TABLET PO (08:12)
[2022-01-30] MEDS: ENOXAPARIN 40 MG/0.4 ML SYRINGE SUB-Q (08:12)
[2022-01-30] MEDS: PANTOPRAZOLE 40 MG TABLET PO ×2 (08:13→17:13)
--- NOTE | 2022-01-30 09:18 | PM.PNPUL ---
Progress Note: A&P Assessment and Plan (1) Acute on chronic respiratory failure with hypoxia and hypercapnia: Code(s): J96.21 - Acute and chronic respiratory failure with hypoxia; J96.22 - Acute and chronic respiratory failure with hypercapnia Status: Acute Assessment and Plan: 66-year-old female with very severe COPD, hypoxemic hypercapnic respiratory failure on home ventilatory support is being treated for COPD exacerbation. There was recent worsening of patient's clinical condition for which the patient was treated in IMU. She is back in [facility]. On physical exam there is evidence of better air entry now while the patient is on IV steroids IV antibiotics and nebulized short-acting bronchodilators. She uses the BiPAP support just at night. chest x-ray done today is essentially unchanged. Plan: Will continue with current regimen of IV antibiotics, will switch to oral steroids, nebulized short-acting bronchodilators and BiPAP support at night and p.r.n. during day. (2) Acute exacerbation of chronic obstructive pulmonary disease (COPD): Code(s): J44.1 - Chronic obstructive pulmonary disease with (acute) exacerbation Status: Acute (3) Emphysema lung: Qualifiers: Emphysema type: unspecified Qualified Code(s): J43.9 - Emphysema, unspecified Code(s): J43.9 - Emphysema, unspecified Status: Acute Subjective Date/time seen: 01/30/22 09:18 slept for approximately 4 hours only last night. Sitting up in bed. Shortness of breath improved over the last 48 hours. Spends most of the day on supplemental oxygen via nasal cannula. Uses hospital BiPAP at night. Review of Systems Review of Systems: All systems reviewed & are unremarkable except as noted in HPI and below Exam Narrative: GENERAL APPEARANCE: Well developed, well nourished, alert and cooperative, and appears to be in moderate respiratory distress SKIN: Inspection of the skin reveals no rashes, ulcerations or petechiae. HEENT: Sclerae anicteric and conjunctivae pink and moist. Extraocular movements were intact and pupils were equal, round. The oral mucosa, hard and soft palate, tongue and posterior pharynx were normal. NECK: Supple. There was no thyroid enlargement, and no tenderness, or masses were felt. CHEST: hyperinflated chest but less than before LUNGS: Auscultation of the lungs revealed distant breath sounds no wheezing. CARDIAC: There was a regular rate and rhythm without any murmurs ABD: soft nontender BS present LYMPH NODES: No lymphadenopathy in the neck EXTREMITIES: No cyanosis, clubbing or edema. NEUROLOGIC: Alert and oriented x 3. Normal affect. Objective Data Vital Signs Vital Signs: Vital Signs - 24 hr 01/29/22 09:24 01/29/22 10:37 01/29/22 10:30 Temperature Pulse Rate 125 H 131 H Respiratory Rate 19 Blood Pressure 126/60 Pulse Oximetry Oxygen Delivery Oxygen Flow Rate Fraction of Inspired Oxygen 01/29/22 12:15 01/29/22 12:15 01/29/22 14:00 Temperature Pulse Rate 96 101 H Respiratory Rate Blood Pressure Pulse Oximetry 97 Oxygen Delivery Nasal Cannula Oxygen Flow Rate 3 Fraction of Inspired Oxygen 01/29/22 14:00 01/29/22 14:50 01/29/22 16:00 Temperature Pulse Rate 105 H 104 H 98 Respiratory Rate 20 20 Blood Pressure 144/76 H Pulse Oximetry 95 98 Oxygen Delivery BiPAP Oxygen Flow Rate Fraction of Inspired Oxygen 01/29/22 18:00 01/29/22 17:30 01/29/22 16:00 Temperature 36.7 C Pulse Rate 99 101 H Respiratory Rate 20 20 Blood Pressure 130/70 Pulse Oximetry 98 90 Oxygen Delivery Nasal Cannula Oxygen Flow Rate 3 Fraction of Inspired Oxygen 01/29/22 20:00 01/29/22 20:00 01/29/22 22:00 Temperature 37.1 C Pulse Rate 101 H 107 H 101 H Respiratory Rate 20 Blood Pressure 140/68 Pulse Oximetry 96 Oxygen Delivery Oxygen Flow Rate Fraction of Inspired Oxygen
[2022-01-30] MEDS: FLUTICASONE/UMECLIDIN/VILANTER 100-62.5-25 MCG ELLIPTA 1 PUFF INHALATION (09:26)
--- NOTE | 2022-01-30 11:51 | PM.IMPN ---
Progress Note: A&P Assessment and Plan (1) Acute exacerbation of chronic obstructive pulmonary disease (COPD): Code(s): J44.1 - Chronic obstructive pulmonary disease with (acute) exacerbation Status: Acute Assessment and Plan: -continue nebulizer treatment, Antibiotics, steroids, inhalers - stripping cutter and winder consulted - appreciate input - patient feels like the Xopenex nebulizer is making her breathing worse. I changed these to p.r.n. (2) Acute on chronic respiratory failure with hypoxia and hypercapnia: Code(s): J96.21 - Acute and chronic respiratory failure with hypoxia; J96.22 - Acute and chronic respiratory failure with hypercapnia Status: Acute Assessment and Plan: -the patient does wear oxygen at home as well as her trilogy. -the patient is currently on a BiPAP. - monitor ABG (3) Hyperlipidemia: Code(s): E78.5 - Hyperlipidemia, unspecified Status: Acute Assessment and Plan: -continue with atorvastatin Subjective Date/time seen: 01/30/22 11:51 No complaints Exam Narrative: GENERAL APPEARANCE: Well developed, well nourished, alert and cooperative, and appears to be in moderate respiratory distress SKIN: Inspection of the skin reveals no rashes, ulcerations or petechiae. HEENT: Sclerae anicteric and conjunctivae pink and moist. Extraocular movements were intact and pupils were equal, round. The oral mucosa, hard and soft palate, tongue and posterior pharynx were normal. NECK: Supple. There was no thyroid enlargement, and no tenderness, or masses were felt. CHEST: Normal AP diameter and normal contour without any kyphoscoliosis. hyperinflated chest LUNGS: Auscultation of the lungs revealed poor air entry bilaterally mild expiratory wheezing, new since yesterday CARDIAC: There was a regular rate and rhythm without any murmurs ABD: soft nontender LYMPH NODES: No lymphadenopathy was appreciated in the neck EXTREMITIES: No cyanosis, clubbing or edema. NEUROLOGIC: Alert and oriented x 3. Normal affect. Objective Data Vital Signs Vital Signs: Vital Signs - 24 hr 01/29/22 12:15 01/29/22 12:15 01/29/22 14:00 Temperature Pulse Rate 96 101 H Respiratory Rate Blood Pressure Pulse Oximetry 97 Oxygen Delivery Nasal Cannula Oxygen Flow Rate 3 Fraction of Inspired Oxygen 01/29/22 14:00 01/29/22 14:50 01/29/22 16:00 Temperature Pulse Rate 105 H 104 H 98 Respiratory Rate 20 20 Blood Pressure 144/76 H Pulse Oximetry 95 98 Oxygen Delivery BiPAP Oxygen Flow Rate Fraction of Inspired Oxygen 01/29/22 18:00 01/29/22 17:30 01/29/22 16:00 Temperature 98.1 F Pulse Rate 99 101 H Respiratory Rate 20 20 Blood Pressure 130/70 Pulse Oximetry 98 90 Oxygen Delivery Nasal Cannula Oxygen Flow Rate 3 Fraction of Inspired Oxygen 01/29/22 20:00 01/29/22 20:00 01/29/22 22:00 Temperature 98.7 F Pulse Rate 101 H 107 H 101 H Respiratory Rate 20 Blood Pressure 140/68 Pulse Oximetry 96 Oxygen Delivery Oxygen Flow Rate Fraction of Inspired Oxygen 01/29/22 21:00 01/29/22 22:56 01/29/22 23:43 Temperature 99.1 F Pulse Rate 80 98 Respiratory Rate 23 H 18 Blood Pressure 164/81 H Pulse Oximetry 98 98 99 Oxygen Delivery Nasal Cannula BiPAP Oxygen Flow Rate 3 Fraction of Inspired Oxygen 01/30/22 00:00 01/30/22 01:00 01/30/22 02:00 Temperature Pulse Rate 96 96 93 Respiratory Rate 18 Blood Pressure Pulse Oximetry 99 Oxygen Delivery BiPAP Oxygen Flow Rate Fraction of Inspired Oxygen 50 01/30/22 04:00 01/30/22 04:00 01/30/22 04:00 Temperature 99.0 F Pulse Rate 93 82 90 Respiratory Rate 18 19 Blood Pressure 155/79 H Pulse Oximetry 99 99 Oxygen Delivery BiPAP Oxygen Flow Rate Fraction of Inspired Oxygen 50 01/30/22 06:00 01/30/22 09:28 01/30/22 08:00 Temperature Pulse Rate 96 97 Respiratory Rate Blood Pressure Pulse Oximetry 9
[2022-01-30] MEDS: CALCIUM CARBONATE (TUMS) 500 MG (200 MG ELEMENTAL) PO (17:16)
[2022-01-30] MEDS: ATORVASTATIN 20 MG TABLET PO (20:33)
[2022-01-30] MEDS: ACETAMINOPHEN 500 MG TABLET 1000 MG PO (20:34)
[2022-01-31] VITALS (16 sets, daily range): BP systolic 138–182; BP diastolic 54–87; PULSE 84–131; RESP 19–24; TEMP 36.3–37.1; O2SAT 91–100
[2022-01-31 05:09] LABS: Hematocrit 33.3 % (37.0-47.0); Hemoglobin 9.7 g/dL (12.0-15.0); Mean Corpuscular HGB Conc 29.1 g/dl (32-36); Mean Corpuscular Hemoglobin 28.8 pg (26-34); Mean Corpuscular Volume 98.8 fl (80-100); Mean Platelet Volume 9.3 fl (7.4-10.4); Platelet Count Result 394 k/mm3 (150-375); Red Blood Count 3.37 M/mm3 (4.2-5.4); Red Cell Distribution Width 13.1 % (11.5-14.5); White Blood Count 13.7 K/mm3 (4.5-10.0)
[2022-01-31 05:19] LABS: Blood Urea Nitrogen 17 mg/dL (7-17); Calcium 8.6 mg/dL (8.4-10.2); Carbon Dioxide > 40 mmol/L (22-30); Chloride 85 mmol/L (98-107); Estimated CRCL calculation 68 ml/min; Estimated Glomerular Filt Rate > 60; Glucose 100 mg/dL (65-110); Magnesium 1.8 mg/dL (1.6-2.3); Potassium 3.5 mmol/L (3.4-5.0); Sodium 135 mmol/L (137-145)
[2022-01-31] MEDS: FLUTICASONE/UMECLIDIN/VILANTER 100-62.5-25 MCG ELLIPTA 1 PUFF INHALATION (08:12)
[2022-01-31] MEDS: AZITHROMYCIN 250 MG TABLET 500 MG PO (09:23)
[2022-01-31] MEDS: ACETAMINOPHEN 500 MG TABLET 1000 MG PO ×2 (09:23→14:24)
[2022-01-31] MEDS: ROFLUMILAST 500 MCG TABLET PO (09:23)
[2022-01-31] MEDS: predniSONE 20 MG TABLET 40 MG PO (09:24)
[2022-01-31] MEDS: PANTOPRAZOLE 40 MG TABLET PO ×2 (09:24→16:23)
[2022-01-31] MEDS: ENOXAPARIN 40 MG/0.4 ML SYRINGE SUB-Q (09:25)
--- NOTE | 2022-01-31 09:45 | PM.PNPUL ---
Progress Note: A&P Assessment and Plan (1) Acute on chronic respiratory failure with hypoxia and hypercapnia: Code(s): J96.21 - Acute and chronic respiratory failure with hypoxia; J96.22 - Acute and chronic respiratory failure with hypercapnia Status: Acute Assessment and Plan: 66-year-old female with very severe COPD, hypoxemic hypercapnic respiratory failure on home ventilatory support is being treated for COPD exacerbation. There was recent worsening of patient's clinical condition for which the patient was treated in IMU. She is back in [facility]. On physical exam there is evidence of better air entry now while the patient is on oral cyst steroids IV antibiotics and nebulized short-acting bronchodilators. She uses the BiPAP support just at night. chest x-ray done yesterday is essentially unchanged. Plan: Will continue with current regimen of IV antibiotics, oral steroids, nebulized short-acting bronchodilators. patient will be placed on own home ventilator tonight and supplemental oxygen. will measure ApneaLink tonight on her own home ventilator and supplemental oxygen. (2) Acute exacerbation of chronic obstructive pulmonary disease (COPD): Code(s): J44.1 - Chronic obstructive pulmonary disease with (acute) exacerbation Status: Acute (3) Emphysema lung: Qualifiers: Emphysema type: unspecified Qualified Code(s): J43.9 - Emphysema, unspecified Code(s): J43.9 - Emphysema, unspecified Status: Acute Subjective Date/time seen: 01/31/22 09:45 Patient has shortness of breath is back at baseline. She used BiPAP support last night but slept only 4 hours. currently sitting up in bed while on supplemental oxygen. No wheezing fever or any other new respiratory symptoms. Review of Systems Review of Systems: All systems reviewed & are unremarkable except as noted in HPI and below Exam Narrative: GENERAL APPEARANCE: Well developed, well nourished, alert and cooperative, and appears to be in moderate respiratory distress SKIN: Inspection of the skin reveals no rashes, ulcerations or petechiae. HEENT: Sclerae anicteric and conjunctivae pink and moist. Extraocular movements were intact and pupils were equal, round. The oral mucosa, hard and soft palate, tongue and posterior pharynx were normal. NECK: Supple. There was no thyroid enlargement, and no tenderness, or masses were felt. CHEST: hyperinflated chest but less than before LUNGS: Auscultation of the lungs revealed distant breath sounds no wheezing. CARDIAC: There was a regular rate and rhythm without any murmurs ABD: soft nontender BS present LYMPH NODES: No lymphadenopathy in the neck EXTREMITIES: No cyanosis, clubbing or edema. NEUROLOGIC: Alert and oriented x 3. Normal affect. Objective Data Vital Signs Vital Signs: Vital Signs - 24 hr 01/30/22 10:21 01/30/22 12:28 01/30/22 10:00 Temperature 36.2 C L 36.4 C Pulse Rate 112 H 105 H 110 H Respiratory Rate 20 18 Blood Pressure 164/75 H 145/66 H Pulse Oximetry 95 95 Oxygen Delivery Oxygen Flow Rate Fraction of Inspired Oxygen 01/30/22 12:00 01/30/22 12:00 01/30/22 16:00 Temperature Pulse Rate 107 H Respiratory Rate Blood Pressure Pulse Oximetry 99 95 Oxygen Delivery Nasal Cannula Nasal Cannula Oxygen Flow Rate 2 2 Fraction of Inspired Oxygen 01/30/22 16:00 01/30/22 14:00 01/30/22 16:00 Temperature 36.6 C Pulse Rate 96 102 H 100 Respiratory Rate 22 H Blood Pressure 150/71 H Pulse Oximetry 96 Oxygen Delivery Oxygen Flow Rate Fraction of Inspired Oxygen 01/30/22 18:00 01/30/22 19:59 01/30/22 20:00 Temperature 36.4 C Pulse Rate 98 98 97 Respiratory Rate 22 H 20 Blood Pressure 154/73 H Pulse Oximetry 96 98 Oxygen Delivery Nasal Cannula Oxygen Flow Rate 3 Fraction of Inspired Oxygen 50 01/30/22 20:00 01/30/22 22:00 01/31/22 00:00 Temperature Pulse Rate 9
--- NOTE | 2022-01-31 12:23 | PM.IMPN ---
Progress Note: A&P Assessment and Plan (1) Acute exacerbation of chronic obstructive pulmonary disease (COPD): Code(s): J44.1 - Chronic obstructive pulmonary disease with (acute) exacerbation Status: Acute Assessment and Plan: -continue nebulizer treatment, Antibiotics, steroids, inhalers - power washer consulted - appreciate input - patient feels like the Xopenex nebulizer is making her breathing worse. I changed these to p.r.n. (2) Acute on chronic respiratory failure with hypoxia and hypercapnia: Code(s): J96.21 - Acute and chronic respiratory failure with hypoxia; J96.22 - Acute and chronic respiratory failure with hypercapnia Status: Acute Assessment and Plan: -the patient does wear oxygen at home as well as her trilogy. -the patient is currently on a BiPAP. - monitor ABG (3) Hyperlipidemia: Code(s): E78.5 - Hyperlipidemia, unspecified Status: Acute Assessment and Plan: -continue with atorvastatin Subjective Date/time seen: 01/31/22 12:23 No complaints Exam Narrative: GENERAL APPEARANCE: Well developed, well nourished, alert and cooperative, and appears to be in moderate respiratory distress SKIN: Inspection of the skin reveals no rashes, ulcerations or petechiae. HEENT: Sclerae anicteric and conjunctivae pink and moist. Extraocular movements were intact and pupils were equal, round. The oral mucosa, hard and soft palate, tongue and posterior pharynx were normal. NECK: Supple. There was no thyroid enlargement, and no tenderness, or masses were felt. CHEST: Normal AP diameter and normal contour without any kyphoscoliosis. hyperinflated chest LUNGS: Auscultation of the lungs revealed poor air entry bilaterally mild expiratory wheezing, new since yesterday CARDIAC: There was a regular rate and rhythm without any murmurs ABD: soft nontender LYMPH NODES: No lymphadenopathy was appreciated in the neck EXTREMITIES: No cyanosis, clubbing or edema. NEUROLOGIC: Alert and oriented x 3. Normal affect. Objective Data Vital Signs Vital Signs: Vital Signs - 24 hr 01/30/22 12:28 01/30/22 16:00 01/30/22 16:00 Temperature 97.6 F 97.9 F Pulse Rate 105 H 96 Respiratory Rate 18 22 H Blood Pressure 145/66 H 150/71 H Pulse Oximetry 95 95 96 Oxygen Delivery Nasal Cannula Oxygen Flow Rate 2 Fraction of Inspired Oxygen 01/30/22 14:00 01/30/22 16:00 01/30/22 18:00 Temperature Pulse Rate 102 H 100 98 Respiratory Rate Blood Pressure Pulse Oximetry Oxygen Delivery Oxygen Flow Rate Fraction of Inspired Oxygen 01/30/22 19:59 01/30/22 20:00 01/30/22 20:00 Temperature 97.6 F Pulse Rate 98 97 95 Respiratory Rate 22 H 20 Blood Pressure 154/73 H Pulse Oximetry 96 98 Oxygen Delivery Nasal Cannula Oxygen Flow Rate 3 Fraction of Inspired Oxygen 50 01/30/22 22:00 01/31/22 00:00 01/31/22 00:00 Temperature Pulse Rate 88 93 93 Respiratory Rate 20 Blood Pressure Pulse Oximetry 98 Oxygen Delivery Nasal Cannula Oxygen Flow Rate 3 Fraction of Inspired Oxygen 01/31/22 00:00 01/31/22 02:00 01/31/22 04:00 Temperature 97.6 F Pulse Rate 91 84 84 Respiratory Rate 20 20 Blood Pressure 147/71 H Pulse Oximetry 98 98 Oxygen Delivery Nasal Cannula Oxygen Flow Rate 3 Fraction of Inspired Oxygen 01/31/22 04:00 01/31/22 04:00 01/31/22 06:00 Temperature 97.4 F L Pulse Rate 106 H 95 99 Respiratory Rate 19 Blood Pressure 138/61 Pulse Oximetry 95 Oxygen Delivery Oxygen Flow Rate Fraction of Inspired Oxygen 01/31/22 08:14 01/31/22 08:00 01/31/22 08:00 Temperature 98.8 F Pulse Rate 97 Respiratory Rate 20 Blood Pressure 140/54 L Pulse Oximetry 96 96 96 Oxygen Delivery Nasal Cannula Nasal Cannula Oxygen Flow Rate 2 2 Fraction of Inspired Oxygen Intake/Output Intake/Output: Intake & Output 01/28/22 01/29/22 01/30/22 01/31/22 23:59 23:59 23:59
[2022-01-31] MEDS: ATORVASTATIN 20 MG TABLET PO (21:01)
[2022-02-01] VITALS (12 sets, daily range): BP systolic 102–165; BP diastolic 59–78; PULSE 80–102; RESP 12–22; TEMP 36.4–36.9; O2SAT 91–100
[2022-02-01] MEDS: ACETAMINOPHEN 500 MG TABLET 1000 MG PO ×2 (00:39→09:50)
[2022-02-01 05:12] LABS: Hemoglobin 10.1 g/dL (12.0-15.0); Mean Corpuscular HGB Conc 30.6 g/dl (32-36); Mean Corpuscular Hemoglobin 29.3 pg (26-34); Mean Corpuscular Volume 95.7 fl (80-100); Mean Platelet Volume 9.5 fl (7.4-10.4); Platelet Count Result 383 k/mm3 (150-375); Red Blood Count 3.45 M/mm3 (4.2-5.4); White Blood Count 15.6 K/mm3 (4.5-10.0)
[2022-02-01 05:30] LABS: Blood Urea Nitrogen 18 mg/dL (7-17); Calcium 8.5 mg/dL (8.4-10.2); Carbon Dioxide > 40 mmol/L (22-30); Chloride 80 mmol/L (98-107); Estimated CRCL calculation 78 ml/min; Estimated Glomerular Filt Rate > 60; Glucose 110 mg/dL (65-110); Magnesium 1.7 mg/dL (1.6-2.3); Potassium 3.3 mmol/L (3.4-5.0); Sodium 131 mmol/L (137-145)
[2022-02-01] MEDS: ENOXAPARIN 40 MG/0.4 ML SYRINGE SUB-Q (08:06)
[2022-02-01] MEDS: AZITHROMYCIN 250 MG TABLET 500 MG PO (08:07)
[2022-02-01] MEDS: predniSONE 20 MG TABLET 40 MG PO (08:08)
[2022-02-01] MEDS: ROFLUMILAST 500 MCG TABLET PO (08:08)
[2022-02-01] MEDS: PANTOPRAZOLE 40 MG TABLET PO ×2 (08:08→17:09)
--- NOTE | 2022-02-01 10:32 | PM.PNPUL ---
Progress Note: A&P Assessment and Plan (1) Acute on chronic respiratory failure with hypoxia and hypercapnia: Code(s): J96.21 - Acute and chronic respiratory failure with hypoxia; J96.22 - Acute and chronic respiratory failure with hypercapnia Status: Acute Assessment and Plan: 66-year-old female with very severe COPD, hypoxemic hypercapnic respiratory failure on home ventilatory support is being treated for COPD exacerbation. There was recent worsening of patient's clinical condition for which the patient was treated in IMU. She is back in [facility]. On physical exam there is evidence of better air entry now while the patient is on oral steroids, IV antibiotics and nebulized short-acting bronchodilators. She uses the BiPAP support just at night. she did not use her own home ventilator last night because of a right eye pain. Plan: Will continue with current regimen of IV antibiotics, oral steroids, nebulized short-acting bronchodilators. Because of possible right glaucoma, we will continue with just nebulized beta agonist and avoid nebulized Atrovent and LAMA inhalers. patient will be placed on own home ventilator tonight and supplemental oxygen. will measure ApneaLink tonight on her own home ventilator and supplemental oxygen. case was discussed with the hospitalist. (2) Acute exacerbation of chronic obstructive pulmonary disease (COPD): Code(s): J44.1 - Chronic obstructive pulmonary disease with (acute) exacerbation Status: Acute (3) Emphysema lung: Qualifiers: Emphysema type: unspecified Qualified Code(s): J43.9 - Emphysema, unspecified Code(s): J43.9 - Emphysema, unspecified Status: Acute Subjective Date/time seen: 02/01/22 10:32 patient has no new respiratory symptoms. Sitting up in bed. She used own home ventilator for 1 hour or so last night because of a pain around her R eye. She underwent head CT yesterday. She is scheduled to undergo MRI today for a headache and pain around her right eye. She complains of blurry vision from right eye. Review of Systems Review of Systems: All systems reviewed & are unremarkable except as noted in HPI and below Exam Narrative: GENERAL APPEARANCE: Well developed, well nourished, alert and cooperative, and appears to be in moderate respiratory distress SKIN: Inspection of the skin reveals no rashes, ulcerations or petechiae. HEENT: Sclerae anicteric. Right eye: conjunctivitis, also R dilated pupil. The oral mucosa, hard and soft palate, tongue and posterior pharynx were normal. NECK: Supple. There was no thyroid enlargement, and no tenderness, or masses were felt. CHEST: Normal AP diameter and normal contour without any kyphoscoliosis. hyperinflated chest LUNGS: Auscultation of the lungs revealed poor air entry bilaterally no wheezing. CARDIAC: There was a regular rate and rhythm without any murmurs ABD: soft nontender LYMPH NODES: No lymphadenopathy was appreciated in the neck EXTREMITIES: No cyanosis, clubbing or edema. NEUROLOGIC: Alert and oriented x 3. Normal affect. Objective Data Vital Signs Vital Signs: Vital Signs - 24 hr 01/31/22 16:00 01/31/22 12:00 01/31/22 14:00 Temperature 36.9 C Pulse Rate 105 H 115 H 104 H Respiratory Rate 19 Blood Pressure 174/87 H Pulse Oximetry 100 Oxygen Delivery Oxygen Flow Rate Fraction of Inspired Oxygen 01/31/22 16:00 01/31/22 18:00 01/31/22 18:45 Temperature Pulse Rate 104 H 92 Respiratory Rate Blood Pressure 164/74 H Pulse Oximetry Oxygen Delivery Oxygen Flow Rate Fraction of Inspired Oxygen 01/31/22 20:00 01/31/22 16:00 01/31/22 20:00 Temperature 36.4 C Pulse Rate 89 86 Respiratory Rate 20 24 H Blood Pressure 182/83 H Pulse Oximetry 97 97 100 Oxygen Delivery Nasal Cannula BiPAP Oxygen Flow Rate 2 Fraction of Inspired Oxygen 01/31/22 20:00 01/31/22 20:00 01/31/22 23:24
--- NOTE | 2022-02-01 11:10 | PM.IMPN ---
Progress Note: A&P Assessment and Plan (1) Acute exacerbation of chronic obstructive pulmonary disease (COPD): Code(s): J44.1 - Chronic obstructive pulmonary disease with (acute) exacerbation Status: Acute Assessment and Plan: Antibiotics, steroids, inhalers - kelp cutter consulted - appreciate input - will dc nebs/inhalers that might exacerbate potential glaucoma (as she is having some eye pain) (2) Acute on chronic respiratory failure with hypoxia and hypercapnia: Code(s): J96.21 - Acute and chronic respiratory failure with hypoxia; J96.22 - Acute and chronic respiratory failure with hypercapnia Status: Acute Assessment and Plan: -the patient does wear oxygen at home as well as her trilogy. -the patient is currently on a BiPAP. - monitor ABG (3) Hyperlipidemia: Code(s): E78.5 - Hyperlipidemia, unspecified Status: Acute Assessment and Plan: -continue with atorvastatin (4) Eye pain: Code(s): H57.10 - Ocular pain, unspecified eye Status: Acute Assessment and Plan: ? [place] dc inhalers/ nebs that will worsen symptoms no visual disturbances red sclera - possibly viral conjunctivitis Subjective Date/time seen: 02/01/22 11:10 complaints of right eye pain erythema noted of sclera reports vision is blurry but not the best at baseline no tunnel vision Exam Narrative: GENERAL APPEARANCE: Well developed, well nourished, alert and cooperative, and appears to be in moderate respiratory distress SKIN: Inspection of the skin reveals no rashes, ulcerations or petechiae. HEENT: right eye sclera is red and inflamed, no exudate, Extraocular movements were intact and pupils were equal, round. The oral mucosa, hard and soft palate, tongue and posterior pharynx were normal. NECK: Supple. There was no thyroid enlargement, and no tenderness, or masses were felt. CHEST: Normal AP diameter and normal contour without any kyphoscoliosis. hyperinflated chest LUNGS: Auscultation of the lungs revealed poor air entry bilaterally mild expiratory wheezing, new since yesterday CARDIAC: There was a regular rate and rhythm without any murmurs ABD: soft nontender LYMPH NODES: No lymphadenopathy was appreciated in the neck EXTREMITIES: No cyanosis, clubbing or edema. NEUROLOGIC: Alert and oriented x 3. Normal affect. Objective Data Vital Signs Vital Signs: Vital Signs - 24 hr 01/31/22 16:00 01/31/22 12:00 01/31/22 14:00 Temperature 98.5 F Pulse Rate 105 H 115 H 104 H Respiratory Rate 19 Blood Pressure 174/87 H Pulse Oximetry 100 Oxygen Delivery Oxygen Flow Rate Fraction of Inspired Oxygen 01/31/22 16:00 01/31/22 18:00 01/31/22 18:45 Temperature Pulse Rate 104 H 92 Respiratory Rate Blood Pressure 164/74 H Pulse Oximetry Oxygen Delivery Oxygen Flow Rate Fraction of Inspired Oxygen 01/31/22 20:00 01/31/22 16:00 01/31/22 20:00 Temperature 97.6 F Pulse Rate 89 86 Respiratory Rate 20 24 H Blood Pressure 182/83 H Pulse Oximetry 97 97 100 Oxygen Delivery Nasal Cannula BiPAP Oxygen Flow Rate 2 Fraction of Inspired Oxygen 01/31/22 20:00 01/31/22 20:00 01/31/22 23:24 Temperature Pulse Rate 87 Respiratory Rate 20 Blood Pressure Pulse Oximetry 100 100 Oxygen Delivery BiPAP BiPAP CPAP Oxygen Flow Rate 3 Fraction of Inspired Oxygen 35 35 01/31/22 22:50 01/31/22 23:32 02/01/22 00:00 Temperature 98.4 F Pulse Rate 94 Respiratory Rate 20 Blood Pressure 153/67 H 153/67 H Pulse Oximetry 91 91 Oxygen Delivery CPAP Oxygen Flow Rate 3 Fraction of Inspired Oxygen 01/31/22 20:00 02/01/22 00:00 02/01/22 01:58 Temperature Pulse Rate 90 87 80 Respiratory Rate 22 H Blood Pressure Pulse Oximetry 100 Oxygen Delivery BiPAP Oxygen Flow Rate Fraction of Inspired Oxygen 02/01/22 03:58 02/01/22 04:00 02/01/22 04:00 Temperature 97.6 F Pulse Rate 98
[2022-02-01] MEDS: FLUTICASONE/UMECLIDIN/VILANTER 100-62.5-25 MCG ELLIPTA 1 PUFF INHALATION (11:59)
[2022-02-01 12:05] LABS: Alveolar/Arterial O2 Gradient 52.6 mmHg; Base Excess ABG 18.7 mEq/l (+/-2.0); Fractional Inspired Oxygen 28 %; HCO3 ABG 45.4 mEq/l (22.0-26.0); Oxygen Content ABG 14.7 %vol (16.0-22.0); Oxygen Saturation ABG 94.7 % (95.0-100.0); Oxyhemoglobin 93.3 % THb (90.0-100.0); PO2 ABG 71.6 mmHg (80.0-100.0); PO2 FiO2 Ratio Arterial Blood 2.56 %; Total Hemoglobin 11.2 g/dL (12.0-18.0); pH ABG 7.469 (7.350-7.450)
[2022-02-01 12:07] LABS: Device NASAL CANNULA; Modified Allen's Test Pass; PCO2 ABG 63.9 mmHg (35.0-45.0); Site Drawn LEFT RADIAL
[2022-02-01] MEDS: HYDROcodone/acetaminophen (*CRX) 5-325 MG TABLET 1 TAB PO (13:13)
[2022-02-01] MEDS: POTASSIUM CHLORIDE 20 MEQ TABLET PO (17:09)
--- NOTE | 2022-02-01 17:38 | PC.NURSE ---
Patient transferred to [facility] in stable condition. Report given to Latanya SAUCEDA. All belongings sent with patient. updated via telephone with directions on how to find her.
--- NOTE | 2022-02-01 17:45 | PC.NURSE ---
pt transferred in to room 246 via bed, oriented to new room and environment, reviewed MD orders and plan of care
[2022-02-01] MEDS: IBUPROFEN 400 MG TABLET PO (17:51)
[2022-02-01] MEDS: ATORVASTATIN 20 MG TABLET PO (20:18)
[2022-02-01] MEDS: hydrOXYzine HCL 25 MG TABLET PO (23:57)
[2022-02-02] VITALS (10 sets, daily range): BP systolic 126–143; BP diastolic 56–61; PULSE 81–114; RESP 16–20; TEMP 36.2–36.7; O2SAT 16–98
[2022-02-02 06:13] LABS: Hematocrit 30.7 % (37.0-47.0); Hemoglobin 9.5 g/dL (12.0-15.0); Mean Corpuscular HGB Conc 30.9 g/dl (32-36); Mean Corpuscular Hemoglobin 28.4 pg (26-34); Mean Corpuscular Volume 91.6 fl (80-100); Mean Platelet Volume 9.3 fl (7.4-10.4); Platelet Count Result 351 k/mm3 (150-375); Red Blood Count 3.35 M/mm3 (4.2-5.4); Red Cell Distribution Width 12.8 % (11.5-14.5); White Blood Count 13.8 K/mm3 (4.5-10.0)
[2022-02-02 06:34] LABS: Blood Urea Nitrogen 13 mg/dL (7-17); Calcium 8.3 mg/dL (8.4-10.2); Carbon Dioxide > 40 mmol/L (22-30); Chloride 82 mmol/L (98-107); Estimated CRCL calculation 70 ml/min; Estimated Glomerular Filt Rate > 60; Glucose 96 mg/dL (65-110); Magnesium 1.6 mg/dL (1.6-2.3); Potassium 3.3 mmol/L (3.4-5.0); Sodium 131 mmol/L (137-145)
[2022-02-02] MEDS: FLUTICASONE/UMECLIDIN/VILANTER 100-62.5-25 MCG ELLIPTA 1 PUFF INHALATION (08:15)
[2022-02-02] MEDS: ROFLUMILAST 500 MCG TABLET PO (08:41)
[2022-02-02] MEDS: predniSONE 20 MG TABLET 40 MG PO (08:41)
[2022-02-02] MEDS: ACETAMINOPHEN 500 MG TABLET 1000 MG PO ×2 (08:41→22:39)
[2022-02-02] MEDS: PANTOPRAZOLE 40 MG TABLET PO ×2 (08:41→17:50)
[2022-02-02] MEDS: ENOXAPARIN 40 MG/0.4 ML SYRINGE SUB-Q (08:41)
[2022-02-02] MEDS: POTASSIUM CHLORIDE 20 MEQ PACKET (FOR LIQUID) PO (09:22)
--- NOTE | 2022-02-02 11:20 | PM.IMPN ---
Progress Note: A&P Assessment and Plan (1) Acute exacerbation of chronic obstructive pulmonary disease (COPD): Code(s): J44.1 - Chronic obstructive pulmonary disease with (acute) exacerbation Status: Acute Assessment and Plan: Antibiotics, steroids, inhalers - copy reader consulted - appreciate input - will dc nebs/inhalers that might exacerbate potential glaucoma (as she is having some eye pain) (2) Acute on chronic respiratory failure with hypoxia and hypercapnia: Code(s): J96.21 - Acute and chronic respiratory failure with hypoxia; J96.22 - Acute and chronic respiratory failure with hypercapnia Status: Acute Assessment and Plan: -the patient does wear oxygen at home as well as her trilogy. -the patient is currently on a BiPAP. - monitor ABG (3) Hyperlipidemia: Code(s): E78.5 - Hyperlipidemia, unspecified Status: Acute Assessment and Plan: -continue with atorvastatin (4) Eye pain: Code(s): H57.10 - Ocular pain, unspecified eye Status: Acute Assessment and Plan: ? gluacoma - Not likely sclera is inflamed and irritated. Will put on antibiotic eyedrops. dc inhalers/ nebs that will worsen symptoms patient does report blurry vision. No tunnel vision, or central vision loss Ophthalmology consult Subjective Date/time seen: 02/02/22 11:20 No new complaints. Still having pain and inflammation right eye. A little bit better. Exam Narrative: GENERAL APPEARANCE: Well developed, well nourished, alert and cooperative, and appears to be in moderate respiratory distress SKIN: Inspection of the skin reveals no rashes, ulcerations or petechiae. HEENT: right eye sclera is red and inflamed, no exudate, Extraocular movements were intact and pupils were equal, round. The oral mucosa, hard and soft palate, tongue and posterior pharynx were normal. NECK: Supple. There was no thyroid enlargement, and no tenderness, or masses were felt. CHEST: Normal AP diameter and normal contour without any kyphoscoliosis. hyperinflated chest LUNGS: Auscultation of the lungs revealed poor air entry bilaterally mild expiratory wheezing, new since yesterday CARDIAC: There was a regular rate and rhythm without any murmurs ABD: soft nontender LYMPH NODES: No lymphadenopathy was appreciated in the neck EXTREMITIES: No cyanosis, clubbing or edema. NEUROLOGIC: Alert and oriented x 3. Normal affect. Objective Data Vital Signs Vital Signs: Vital Signs - 24 hr 02/01/22 11:59 02/01/22 16:00 02/01/22 12:00 Temperature 98.3 F Pulse Rate 92 94 93 Respiratory Rate 12 Blood Pressure 102/59 L Pulse Oximetry 96 94 Oxygen Delivery Nasal Cannula Oxygen Flow Rate 2 Fraction of Inspired Oxygen 02/01/22 16:00 02/01/22 12:00 02/01/22 16:00 Temperature Pulse Rate 93 Respiratory Rate Blood Pressure Pulse Oximetry 94 94 Oxygen Delivery Nasal Cannula Nasal Cannula Oxygen Flow Rate 2 2 Fraction of Inspired Oxygen 02/01/22 17:46 02/01/22 17:46 02/01/22 22:03 Temperature 97.5 F L Pulse Rate 96 96 81 Respiratory Rate 18 18 Blood Pressure 165/73 H Pulse Oximetry 95 97 Oxygen Delivery Nasal Cannula Oxygen Flow Rate 2 Fraction of Inspired Oxygen 02/01/22 20:30 02/01/22 20:10 02/02/22 00:16 Temperature Pulse Rate 80 88 Respiratory Rate Blood Pressure Pulse Oximetry 97 Oxygen Delivery Nasal Cannula Oxygen Flow Rate 2 Fraction of Inspired Oxygen 02/02/22 00:53 02/02/22 04:00 02/02/22 04:00 Temperature Pulse Rate 81 Respiratory Rate Blood Pressure Pulse Oximetry 96 98 Oxygen Delivery Nasal Cannula Nasal Cannula Oxygen Flow Rate 2 2 Fraction of Inspired Oxygen 02/02/22 06:36 02/02/22 08:00 Temperature 98.1 F Pulse Rate 91 91 Respiratory Rate 20 20 Blood Pressure 143/56 H Pulse Oximetry 98 98 Oxygen Delivery Nasal Cannula Oxygen Flow Rate 2 Fraction of Inspired Oxygen 3
[2022-02-02] MEDS: POLYMYXIN/TRIMETHOPRIM OPHTH 10 ML DROPS 1 DROP RIGHT EYE ×2 (12:00→21:22)
--- NOTE | 2022-02-02 12:45 | PM.PNPUL ---
Progress Note: A&P Assessment and Plan (1) Acute on chronic respiratory failure with hypoxia and hypercapnia: Code(s): J96.21 - Acute and chronic respiratory failure with hypoxia; J96.22 - Acute and chronic respiratory failure with hypercapnia Status: Acute Assessment and Plan: 66-year-old female with very severe COPD, hypoxemic hypercapnic respiratory failure on home ventilatory support is being treated for COPD exacerbation. There was recent worsening of patient's clinical condition for which the patient was treated in IMU. She is back in regular medical [facility]. On physical exam there is evidence of better air entry now while the patient is on oral steroids, IV antibiotics and nebulized short-acting bronchodilators. She uses the BiPAP support just at night. Plan: need to get apnea link on patient's own home ventilator and current O2 flow. continue with oral steroids and nebulized short-acting bronchodilators patient will be able to DC home following measurement of nocturnal oximetry on own home ventilator via ApneaLink tonight. (2) Acute exacerbation of chronic obstructive pulmonary disease (COPD): Code(s): J44.1 - Chronic obstructive pulmonary disease with (acute) exacerbation Status: Acute (3) Emphysema lung: Qualifiers: Emphysema type: unspecified Qualified Code(s): J43.9 - Emphysema, unspecified Code(s): J43.9 - Emphysema, unspecified Status: Acute Subjective Date/time seen: 02/02/22 12:45 patient's respiratory status has improved over the last 2 days. Moved to [facility] Surg unit. using BiPAP support at night. She did not undergo ApneaLink on own home ventilator last night. Has had workup for right red eye. She has no new respiratory symptoms. Review of Systems Review of Systems: All systems reviewed & are unremarkable except as noted in HPI and below Exam Narrative: GENERAL APPEARANCE: Well developed, well nourished, alert and cooperative, and appears to be in moderate respiratory distress SKIN: Inspection of the skin reveals no rashes, ulcerations or petechiae. HEENT: right eye sclera is red and inflamed, no exudate, Extraocular movements were intact and pupils were equal, round. The oral mucosa, hard and soft palate, tongue and posterior pharynx were normal. NECK: Supple. There was no thyroid enlargement, and no tenderness, or masses were felt. CHEST: Normal AP diameter and normal contour without any kyphoscoliosis. hyperinflated chest LUNGS: Auscultation of the lungs revealed distant breath sounds, no wheezing CARDIAC: There was a regular rate and rhythm without any murmurs ABD: soft nontender LYMPH NODES: No lymphadenopathy was appreciated in the neck EXTREMITIES: No cyanosis, clubbing or edema. NEUROLOGIC: Alert and oriented x 3. Normal affect. Objective Data Vital Signs Vital Signs: Vital Signs - 24 hr 02/01/22 16:00 02/01/22 16:00 02/01/22 16:00 Temperature 36.8 C Pulse Rate 94 93 Respiratory Rate 12 Blood Pressure 102/59 L Pulse Oximetry 94 94 Oxygen Delivery Nasal Cannula Oxygen Flow Rate 2 Fraction of Inspired Oxygen 02/01/22 17:46 02/01/22 17:46 02/01/22 22:03 Temperature 36.4 C L Pulse Rate 96 96 81 Respiratory Rate 18 18 Blood Pressure 165/73 H Pulse Oximetry 95 97 Oxygen Delivery Nasal Cannula Oxygen Flow Rate 2 Fraction of Inspired Oxygen 02/01/22 20:30 02/01/22 20:10 02/02/22 00:16 Temperature Pulse Rate 80 88 Respiratory Rate Blood Pressure Pulse Oximetry 97 Oxygen Delivery Nasal Cannula Oxygen Flow Rate 2 Fraction of Inspired Oxygen 02/02/22 00:53 02/02/22 04:00 02/02/22 04:00 Temperature Pulse Rate 81 Respiratory Rate Blood Pressure Pulse Oximetry 96 98 Oxygen Delivery Nasal Cannula Nasal Cannula Oxygen Flow Rate 2 2 Fraction of Inspired Oxygen 02/02/22 06:36 02/02/22 08:00 Temperature 36.7 C Pulse Rate 91 91 Respiratory Rate 20 2
[2022-02-02] MEDS: IBUPROFEN 400 MG TABLET PO (17:50)
[2022-02-02] MEDS: ATORVASTATIN 20 MG TABLET PO (21:22)
[2022-02-02] MEDS: hydrOXYzine HCL 25 MG TABLET PO (22:39)
[2022-02-03] VITALS (7 sets, daily range): BP systolic 139–146; BP diastolic 60–66; PULSE 92–101; RESP 18–21; TEMP 36.4–36.9; O2SAT 93–100
[2022-02-03 06:45] LABS: Hematocrit 31.1 % (37.0-47.0); Hemoglobin 9.6 g/dL (12.0-15.0); Mean Corpuscular HGB Conc 30.9 g/dl (32-36); Mean Corpuscular Hemoglobin 28.7 pg (26-34); Mean Corpuscular Volume 92.8 fl (80-100); Mean Platelet Volume 9.7 fl (7.4-10.4); Platelet Count Result 322 k/mm3 (150-375); Red Blood Count 3.35 M/mm3 (4.2-5.4); White Blood Count 11.2 K/mm3 (4.5-10.0)
[2022-02-03 07:28] LABS: Blood Urea Nitrogen 16 mg/dL (7-17); Carbon Dioxide > 40 mmol/L (22-30); Chloride 85 mmol/L (98-107); Estimated CRCL calculation 70 ml/min; Estimated Glomerular Filt Rate > 60; Glucose 117 mg/dL (65-110); Magnesium 1.5 mg/dL (1.6-2.3); Potassium 3.3 mmol/L (3.4-5.0); Sodium 131 mmol/L (137-145)
[2022-02-03] MEDS: ROFLUMILAST 500 MCG TABLET PO (08:21)
[2022-02-03] MEDS: predniSONE 20 MG TABLET 40 MG PO (08:22)
[2022-02-03] MEDS: ACETAMINOPHEN 500 MG TABLET 1000 MG PO ×3 (08:22→22:52)
[2022-02-03] MEDS: ENOXAPARIN 40 MG/0.4 ML SYRINGE SUB-Q (08:22)
[2022-02-03] MEDS: PANTOPRAZOLE 40 MG TABLET PO ×2 (08:22→16:17)
[2022-02-03] MEDS: POLYMYXIN/TRIMETHOPRIM OPHTH 10 ML DROPS 1 DROP RIGHT EYE ×2 (08:23→21:19)
[2022-02-03] MEDS: FLUTICASONE/UMECLIDIN/VILANTER 100-62.5-25 MCG ELLIPTA 1 PUFF INHALATION (08:34)
--- NOTE | 2022-02-03 10:59 | PM.IMPN ---
Progress Note: A&P Assessment and Plan (1) Acute exacerbation of chronic obstructive pulmonary disease (COPD): Code(s): J44.1 - Chronic obstructive pulmonary disease with (acute) exacerbation Status: Acute Assessment and Plan: Antibiotics, steroids, inhalers - last sawyer consulted - appreciate input - breathing imporved (2) Acute on chronic respiratory failure with hypoxia and hypercapnia: Code(s): J96.21 - Acute and chronic respiratory failure with hypoxia; J96.22 - Acute and chronic respiratory failure with hypercapnia Status: Acute Assessment and Plan: -the patient does wear oxygen at home as well as her trilogy. -the patient is currently on a BiPAP. - monitor ABG (3) Hyperlipidemia: Code(s): E78.5 - Hyperlipidemia, unspecified Status: Acute Assessment and Plan: -continue with atorvastatin (4) Eye pain: Code(s): H57.10 - Ocular pain, unspecified eye Status: Acute Assessment and Plan: ? glu[place] - Not likely sclera is inflamed and irritated. Will put on antibiotic eyedrops. dc inhalers/ nebs that will worsen symptoms vision improved redness improved w antibiotic eye drops Plan snf placement on dc - likely tomorrow Subjective Date/time seen: 02/03/22 10:59 doing better breathing better eye pain improved, less inflammed Exam Narrative: GENERAL APPEARANCE: Well developed, well nourished, alert and cooperative, and appears to be in moderate respiratory distress SKIN: Inspection of the skin reveals no rashes, ulcerations or petechiae. HEENT: right eye sclera is red and inflamed, no exudate, Extraocular movements were intact and pupils were equal, round. The oral mucosa, hard and soft palate, tongue and posterior pharynx were normal. NECK: Supple. There was no thyroid enlargement, and no tenderness, or masses were felt. CHEST: Normal AP diameter and normal contour without any kyphoscoliosis. hyperinflated chest LUNGS: Auscultation of the lungs revealed poor air entry bilaterally mild expiratory wheezing, new since yesterday CARDIAC: There was a regular rate and rhythm without any murmurs ABD: soft nontender LYMPH NODES: No lymphadenopathy was appreciated in the neck EXTREMITIES: No cyanosis, clubbing or edema. NEUROLOGIC: Alert and oriented x 3. Normal affect. Objective Data Vital Signs Vital Signs: Vital Signs - 24 hr 02/02/22 12:00 02/02/22 14:06 02/02/22 22:03 Temperature 97.2 F L 97.8 F Pulse Rate 114 H 97 96 Respiratory Rate 16 18 Blood Pressure 127/61 126/59 L Pulse Oximetry 16 L 95 Oxygen Delivery Oxygen Flow Rate 02/02/22 21:10 02/02/22 23:20 02/02/22 23:20 Temperature Pulse Rate 94 Respiratory Rate Blood Pressure Pulse Oximetry 95 96 96 Oxygen Delivery Nasal Cannula Nasal Cannula Oxygen Flow Rate 2 2 02/03/22 06:00 02/03/22 08:35 02/03/22 08:35 Temperature 97.6 F Pulse Rate 96 96 96 Respiratory Rate 21 H 18 18 Blood Pressure 141/66 H Pulse Oximetry 100 100 Oxygen Delivery Nasal Cannula Oxygen Flow Rate 2 Intake/Output Intake/Output: Intake & Output 01/31/22 02/01/22 02/02/22 02/03/22 23:59 23:59 23:59 23:59 Intake Total 780 1590 1060 600 Output Total 901 1 700 800 Balance -121 1589 360 -200 Meds/Results Medications: Active Medications Generic Name Dose Route Start Last Admin Trade Name Freq PRN Reason Stop Dose Admin Acetaminophen 1,000 mg 01/26/22 02:02 02/03/22 08:22 Acetaminophen 500 Mg Tablet PO 1,000 mg BID PRN Administration PAIN RATED 4-6 Atorvastatin Calcium 20 mg 01/26/22 21:00 02/02/22 21:22 Atorvastatin 20 Mg Tablet PO 20 mg HS RAO Administration Calcium Carbonate 200 mg 01/30/22 14:10 01/30/22 17:16 Calcium Carbonate (Tums) 500 Mg (200 Mg Elemental) PO 200 mg Q4H PRN Administration Indigestion Enoxaparin Sodium 40 mg 01/26/22 09:00 02/03/22 08:22 Enoxaparin 40 Mg/0.4 Ml Syringe
--- NOTE | 2022-02-03 12:34 | PCNWS ---
Weekly nutritional screen. Patient is tolerating current diet with adequate intake. No weight loss reported. No nutritional needs at this time.
--- NOTE | 2022-02-03 12:38 | PM.PNPUL ---
Progress Note: A&P Assessment and Plan (1) Acute exacerbation of chronic obstructive pulmonary disease (COPD): Code(s): J44.1 - Chronic obstructive pulmonary disease with (acute) exacerbation Status: Acute Assessment and Plan: 02/03/2022 Patient has no wheezes on exam and states that she has 80% back to her baseline. Patient is on 40 mg prednisone p.o. q.day since 01/31 and was started on IV steroids on 01/25/2022. I will discontinue steroids today. I will continue trelegy 100, Daliresp 500. Patient is on cefepime since 01/28 and will continue through today and DC on 02/04 (after total 7 days). at home patient is on 2 L during the day and currently she is on 2 L nasal cannula with saturation 98-100%., (2) Acute on chronic respiratory failure with hypoxia and hypercapnia: Code(s): J96.21 - Acute and chronic respiratory failure with hypoxia; J96.22 - Acute and chronic respiratory failure with hypercapnia Status: Acute Assessment and Plan: 02/02/2022 ?66-year-old female with very severe COPD, hypoxemic hypercapnic respiratory failure on home ventilatory support is being treated for COPD exacerbation. ? There was recent worsening of patient's clinical condition for which the patient was treated in IMU.? She is back in regular medical [facility].? On physical exam there is evidence of better air entry now while the patient is on oral steroids, IV antibiotics and nebulized short-acting bronchodilators.? She uses the BiPAP support just at night.? Plan:? need to get apnea link on patient's? own home ventilator and current O2 flow.? continue with oral steroids and nebulized short-acting bronchodilators patient will be able to DC home following measurement of? nocturnal oximetry on own home ventilator via ApneaLink tonight. 02/03/2022 Patient had an overnight oximetry on her home astral with 3 L bleed in demonstrated time with saturation less than or equal to 88% was 83 minutes or 28% of the monitored time. I will repeat overnight oximetry on her home asked role with 4 L bleed in. will attempt to obtain a download from her [employer] to determine what her home machine is set at. Will follow with you. Subjective Date/time seen: 02/03/22 12:38 Interval history: 02/02/22? 12:45 ?patient's respiratory status has improved over the last 2 days.? Moved to [facility] Surg unit.? using BiPAP support at night.? She did not undergo ApneaLink on own home ventilator last night.? Has had workup for right red eye.? She has no new respiratory symptoms. 02/03/2022. Patient states that she is 80% back to her normal. She denies cough, phlegm, hemoptysis or fever. she is on 2 L nasal cannula with saturation 98-100%., Patient had an overnight oximetry on her home astral with 3 L bleed in demonstrated time with saturation less than or equal to 88% was 83 minutes or 28% of the monitored time. Overall the patient states she is very weak. Review of Systems Constitutional: Constitutional: Reports no additional constitutional complaints Eyes: Eyes: Reports no additional eye complaints ENT: Reports system reviewed and no additional complaints, except as documented Cardiovascular: Cardiovascular: Reports no additional cardiovascular complaints Respiratory: Respiratory: Reports no additional respiratory complaints Gastrointestinal: Gastrointestinal: Reports no additional gastrointestinal complaints Musculoskeletal: Musculoskeletal: Reports no additional musculoskeletal complaints Neurologic: Reports system reviewed and no additional complaints, except as documented Psychiatric: Psychiatric: Reports no additional psychiatric complaints Endocrine: Endocrine: Reports no additional endocrine complaints Hematologic/Lymphatic: Hematologic/Lymphatic: Reports no additional hematologic/lymphatic complaints Allergic/Immunologic: Allergic/Immunologic: Reports no additional allergic/immunologic complaints Exam Const: Genera
--- NOTE | 2022-02-03 14:50 | PCOTNOTE ---
Attempted to see patient, patient reported wanting to shower with later today. Discussed with patient therapist's concerns for patient's safety with bathing unsupervised by hospital staff due to decreased O2 sats with activity. Patient reports understanding and requested therapist come back tomorrow morning to perform shower once patient has clean clothes available. Will see patient tomorrow for OT and continue plan of care.
[2022-02-03] MEDS: CALCIUM CARBONATE (TUMS) 500 MG (200 MG ELEMENTAL) PO (16:16)
[2022-02-03] MEDS: ATORVASTATIN 20 MG TABLET PO (21:38)
[2022-02-03] MEDS: hydrOXYzine HCL 25 MG TABLET PO (22:52)
[2022-02-04 01:30] VITALS: PULSE 84; O2SAT 94
[2022-02-04 05:16] VITALS: BP 146/61; PULSE 89; RESP 20; TEMP 36.6; O2SAT 95
[2022-02-04 05:58] LABS: Hematocrit 28.8 % (37.0-47.0); Hemoglobin 8.8 g/dL (12.0-15.0); Mean Corpuscular HGB Conc 30.6 g/dl (32-36); Mean Corpuscular Hemoglobin 29.1 pg (26-34); Mean Corpuscular Volume 95.4 fl (80-100); Mean Platelet Volume 9.6 fl (7.4-10.4); Platelet Count Result 280 k/mm3 (150-375); Red Blood Count 3.02 M/mm3 (4.2-5.4); Red Cell Distribution Width 13.2 % (11.5-14.5); White Blood Count 10.1 K/mm3 (4.5-10.0)
[2022-02-04 06:11] LABS: Blood Urea Nitrogen 15 mg/dL (7-17); Calcium 8.1 mg/dL (8.4-10.2); Carbon Dioxide > 40 mmol/L (22-30); Chloride 83 mmol/L (98-107); Estimated CRCL calculation 82 ml/min; Estimated Glomerular Filt Rate > 60; Glucose 96 mg/dL (65-110); Magnesium 1.5 mg/dL (1.6-2.3); Potassium 3.4 mmol/L (3.4-5.0); Sodium 127 mmol/L (137-145)
[2022-02-04] MEDS: ACETAMINOPHEN 500 MG TABLET 1000 MG PO (06:37)
[2022-02-04 08:00] VITALS: PULSE 89; RESP 20; O2SAT 95
[2022-02-04] MEDS: FLUTICASONE/UMECLIDIN/VILANTER 100-62.5-25 MCG ELLIPTA 1 PUFF INHALATION (09:07)
[2022-02-04 09:35] VITALS: TEMP 36.6
[2022-02-04] MEDS: PANTOPRAZOLE 40 MG TABLET PO (09:36)
[2022-02-04] MEDS: ENOXAPARIN 40 MG/0.4 ML SYRINGE SUB-Q (09:36)
[2022-02-04] MEDS: ROFLUMILAST 500 MCG TABLET PO (09:36)
--- NOTE | 2022-02-04 09:36 | PM.PNPUL ---
Progress Note: A&P Assessment and Plan (1) Acute exacerbation of chronic obstructive pulmonary disease (COPD): Code(s): J44.1 - Chronic obstructive pulmonary disease with (acute) exacerbation Status: Acute Assessment and Plan: 02/03/2022 Patient has no wheezes on exam and states that she has 80% back to her baseline. Patient is on 40 mg prednisone p.o. q.day since 01/31 and was started on IV steroids on 01/25/2022. I will discontinue steroids today. I will continue trelegy 100, Daliresp 500. Patient is on cefepime since 01/28 and will continue through today and DC on 02/04 (after total 7 days). at home patient is on 2 L during the day and currently she is on 2 L nasal cannula with saturation 98-100%. 02/04 Patient states she continues to improve. Patient took a shower this morning and has been walking in her room. She is 85% back to her breathing baseline. She has no wheezing on exam. Patient had an overnight oximetry on her home machine with 4 L bleed in. Her average saturation was 94%. Low saturation 89%. Time with saturation less than or equal to 88% was 0 minutes. Patient is ready to be discharged from a pulmonary perspective on these pulmonary medications: Trelegy 100/62.5/ At 1 puff q.day. Rescue albuterol 2 puffs Q 4 hours p.r.n. shortness of breath or wheezing Daliresp 500 mg p.o. q.day Oxygen at rest and with ambulation per rehab facilities protocol. If she is to be discharged home she should have a formal home O2 assessment prior to discharge. Continuation of her home Noninvasive ventilator with the IVAPS mode (settings below) when she naps and when she sleeps on 4 L bleed in. follow-up in the Pulmonary Clinic in 3-[address] Palacio, will sign off, call with questions (2) Acute on chronic respiratory failure with hypoxia and hypercapnia: Code(s): J96.21 - Acute and chronic respiratory failure with hypoxia; J96.22 - Acute and chronic respiratory failure with hypercapnia Status: Acute Assessment and Plan: 02/02/2022 ?66-year-old female with very severe COPD, hypoxemic hypercapnic respiratory failure on home ventilatory support is being treated for COPD exacerbation. ? There was recent worsening of patient's clinical condition for which the patient was treated in IMU.? She is back in regular medical [facility].? On physical exam there is evidence of better air entry now while the patient is on oral steroids, IV antibiotics and nebulized short-acting bronchodilators.? She uses the BiPAP support just at night.? Plan:? need to get apnea link on patient's? own home ventilator and current O2 flow.? continue with oral steroids and nebulized short-acting bronchodilators patient will be able to DC home following measurement of? nocturnal oximetry on own home ventilator via ApneaLink tonight. 02/03/2022 Patient had an overnight oximetry on her home astral with 3 L bleed in demonstrated time with saturation less than or equal to 88% was 83 minutes or 28% of the monitored time. I will repeat overnight oximetry on her home asked role with 4 L bleed in. will attempt to obtain a download from her [employer] to determine what her home machine is set at. 02/04 Patient had an overnight oximetry on her home machine with 4 L bleed in. Her average saturation was 94%. Low saturation 89%. Time with saturation less than or equal to 88% was 0 minutes. I obtained a download from [employer] from 10/19/2021 through 01/16/2022. Patient is on a IVAPS mode with a target respiratory rate 10, target alveolar ventilation 3.5 L, EPAP 7, minimal pressure support 5, maximal pressure support 15. usage days greater than or equal to 4 hours was 96%. Average daily usage was 6 hours and 41 minutes, median EPAP 6.8, median peak inspiratory pressure 20, median leak 0, median tidal volume 372, median minute ventilation 4.4, median respiratory rate 11. I interpret this download as excellent compliance, adequat
[2022-02-04] MEDS: POLYMYXIN/TRIMETHOPRIM OPHTH 10 ML DROPS 1 DROP RIGHT EYE (09:37)
--- NOTE | 2022-02-04 11:46 | PM.DS ---
DS: Admitting Diagnosis Discharge Date 02/04/22 Admitting Diagnosis hypercarbic respiratory failure DS: Discharge Diagnosis Discharge Diagnosis (1) Acute exacerbation of chronic obstructive pulmonary disease (COPD): Code(s): J44.1 - Chronic obstructive pulmonary disease with (acute) exacerbation Status: Acute Assessment and Plan: Antibiotics, steroids, inhalers - sand molder consulted - appreciate input - breathing imporved (2) Acute on chronic respiratory failure with hypoxia and hypercapnia: Code(s): J96.21 - Acute and chronic respiratory failure with hypoxia; J96.22 - Acute and chronic respiratory failure with hypercapnia Status: Acute Assessment and Plan: -the patient does wear oxygen at home as well as her trilogy. -the patient is currently on a BiPAP. - monitor ABG (3) Hyperlipidemia: Code(s): E78.5 - Hyperlipidemia, unspecified Status: Acute Assessment and Plan: -continue with atorvastatin (4) Eye pain: Code(s): H57.10 - Ocular pain, unspecified eye Status: Acute Assessment and Plan: ? gluacoma - Not likely sclera is inflamed and irritated. Will put on antibiotic eyedrops. dc inhalers/ nebs that will worsen symptoms vision improved redness improved w antibiotic eye drops Plan snf placement on dc DS: Summary Hospital Course Hospital Course: patient is a 66-year-old female who came in with hypercarbic respiratory failure. She did report compliance her leg medications and home Respiratory sort of support settings and I. Patient initially had significant CO2 retention. She was started on antibiotics to treat possible pneumonia and also given prednisone summer originally IV and then transitioned to oral. Patient subsequently improved dramatically and she is on her home oxygen during the day and also her home settings at night. She will need to be set up with her home settings at night with 4L of oxygen bleed through. Patient also is significantly weak and will be discharged to a care home facility. Regarding her right eye issue, I have spoken with Case Management will get her set up with an vitreo retinal surgeon appointment as an outpatient Time Spent with Patient Time attestation: Total time spent providing and/or coordinating discharge services: Exam Narrative: GENERAL APPEARANCE: Well developed, well nourished, alert and cooperative, and appears to be in moderate respiratory distress SKIN: Inspection of the skin reveals no rashes, ulcerations or petechiae. HEENT: right eye sclera is red and inflamed, no exudate, Extraocular movements were intact and pupils were equal, round. The oral mucosa, hard and soft palate, tongue and posterior pharynx were normal. NECK: Supple. There was no thyroid enlargement, and no tenderness, or masses were felt. CHEST: Normal AP diameter and normal contour without any kyphoscoliosis. hyperinflated chest LUNGS: Auscultation of the lungs revealed poor air entry bilaterally mild expiratory wheezing, new since yesterday CARDIAC: There was a regular rate and rhythm without any murmurs ABD: soft nontender LYMPH NODES: No lymphadenopathy was appreciated in the neck EXTREMITIES: No cyanosis, clubbing or edema. NEUROLOGIC: Alert and oriented x 3. Normal affect. DS: Data Data Completed and Pending Labs on day of discharge: Labs from last 24 hours 02/04/22 02/04/22 05:22 05:22 WBC 10.1 H RBC 3.02 L Hgb 8.8 L Hct 28.8 L MCV 95.4 MCH 29.1 MCHC 30.6 L RDW 13.2 Plt Count 280 MPV 9.6 Sodium 127 L Potassium 3.4 Chloride 83 L Carbon Dioxide > 40 H Anion Gap BUN 15 Creatinine 0.50 L Estim Creat Clear Calc 82 Estimated GFR > 60 Glucose 96 Calcium 8.1 L Magnesium 1.5 L Discharge Plan Discharge Attending physician on discharge: Taurus Palacio Consulting providers: Rosa Wang ; Fernando Duong Discharging Clinician
[2022-02-04 14:55] LABS: EDCOVIDSCREEN Negative (Negative)
== END 2022-02-04 15:35 | DRG 189 ==
LOC: ANHED 22:10 → ANHIMU 22:51 → ANH3MEDSUR 01-27 13:05 → ANHIMU 01-28 18:32 → ANH2MED 02-01 17:40
PROVIDERS: Family Medicine; Internal Medicine Pulmonary Disease; Nurse Practitioner; Physician Assistant; Admitting Provider Internal Medicine; Emergency Provider Emergency Medicine; PCP Internal Medicine; Visit Provider Chiropractor
DX: J96.22 Acute and chronic respiratory failure with hypercapnia (principal); J18.9 Pneumonia, unspecified organism; I50.32 Chronic diastolic (congestive) heart failure; J43.9 Emphysema, unspecified; J96.21 Acute and chronic respiratory failure with hypoxia; E78.5 Hyperlipidemia, unspecified; E83.42 Hypomagnesemia; E87.6 Hypokalemia; H57.11 Ocular pain, right eye; I27.20 Pulmonary hypertension, unspecified; Z79.51 Long term (current) use of inhaled steroids; Z99.81 Dependence on supplemental oxygen; Z87.891 Personal history of nicotine dependence; Z20.822 Contact with and (suspected) exposure to COVID-19; Z90.49 Acquired absence of other specified parts of digestive tract; Z90.710 Acquired absence of both cervix and uterus
CPT/HCPCS: 36415; 36600; 70450; 70553; 71045; 71046; 80048; 80053; 82375; 82805; 83050; 83735; 83880; 84100; 84439; 84443; 84480; 84484; 85025; 85027; 85380; 87426; 87636; 93005; 93880; 93970; 94002; 94003; 94640; 94660; 94762; 96365; 96366; 96367; 96375; 97110; 97116; 97161; 97165; 97530; 97535; 99285; A9270; A9577; C9803; G0378; J0360; J0456; J0692; J1650; J1940; J2060; J2930; J3475; J3480; J7040; J7512

== ENCOUNTER 2022-04-30 09:51 | Outpatient (CLI) | payer MEDICARE, SELFPAY ==
[2022-04-30 10:30] LABS: Alveolar/Arterial O2 Gradient 50.9 mmHg; Base Excess ABG 12.3 mEq/l (+/-2.0); Carboxyhemoglobin 1.5 % THb (0-2.0); Fractional Inspired Oxygen 28 %; HCO3 ABG 39.3 mEq/l (22.0-26.0); Methemoglobin ABG 0.3 %THb (0-1.5); Oxygen Content ABG 14.3 %vol (16.0-22.0); Oxygen Saturation ABG 94.2 % (95.0-100.0); Oxyhemoglobin 91.9 % THb (90.0-100.0); PO2 ABG 72.9 mmHg (80.0-100.0); Reduced Hemoglobin 6.3 %THb (0-5.0); pH ABG 7.404 (7.350-7.450)
[2022-04-30 10:35] LABS: Device NASAL CANNULA; Modified Allen's Test Pass; PCO2 ABG 64.3 mmHg (35.0-45.0); Site Drawn RIGHT RADIAL
== END 2022-04-30 09:52 | disposition home or self-care (01) ==
LOC: ANHLAB 09:54
PROVIDERS: PCP Internal Medicine; Visit Provider Nurse Practitioner Family
DX: J96.21 Acute and chronic respiratory failure with hypoxia (principal); J96.22 Acute and chronic respiratory failure with hypercapnia
CPT/HCPCS: 36600; 82375; 82805; 83050

== ENCOUNTER 2022-05-15 09:06 | Outpatient (CLI) | payer MEDICARE, SELFPAY ==
--- NOTE | ~2022-05-15 | PE_ITS ---
EXAMINATION: PET skull to mid thigh DATE: 05/15/2022 10:57 INDICATION: Right anterior lung nodule. TECHNIQUE: Blood glucose level was 122 mg/dL. 10.921 mCi of 18-fluorodeoxyglucose (18-FDG) was admini stered i.v. Low dose computed tomography (CT) images were acquired from the base of the brain to the proximal thighs for attenuation correction and anatomic localization. Positron emission tomography (P ET) images were acquired in the same distribution beginning 58 minutes after injection. Images includ ing fused PET/CT images were reconstructed in axial, coronal, and sagittal planes. Automated exposure control technique was employed. The dose-length product was 579.84mGy-cm. COMPARISON: Outside institution chest CT dated 04/03/2022 and 03/05/[address] abdomen and pelvis dated 11/15/2019 FINDINGS: Head/neck: There is symmetric increased activity in the oral cavity, palatine tonsils, parotid glands, submandi bular glands, laryngeal muscles and ocular muscles without CT correlate, likely physiologic. Dental d isease with increased FDG uptake with maximal SUV of 5.4 associated with a periapical lucency at the left maxillary lateral incisor. No pathologically enlarged cervical lymphadenopathy or suspicious foc i of increased FDG uptake in the visualized head or neck. Chest: Severe emphysema with scattered bilateral calcified pulmonary nodules and calcified bilateral hilar a nd mediastinal lymph nodes consistent with old granulomatous disease. 1.6 cm right middle lobe nodule with prominent associated FDG uptake with maximal SUV of 16.0 suspicious for primary bronchogenic ca rcinoma. No other noncalcified pulmonary nodules. No pneumonia or pleural effusion. Heart size is nor mal. Atherosclerotic coronary artery calcification. No pericardial effusion. Thoracic aorta is normal in caliber. No pathologically enlarged or FDG avid thoracic lymphadenopathy. Abdomen/pelvis/proximal thighs: Physiologic renal accumulation and excretion of FDG activity in the kidneys, bladder and along portio ns of ureters. Normal degree and heterogenous pattern of increased uptake throughout the liver withou t radiologic correlate or dominant FDG avid lesion. The gallbladder, pancreas, spleen and bilateral a drenal glands are normal. Prominent uptake throughout the colon with additional mild to moderate upta ke scattered throughout the small bowel, all without radiologic correlate and also likely physiologic . The uterus is not identified and has likely been surgically resected. Bilateral adnexa are unremark able. No other abnormal foci of increased FDG uptake or pathologically enlarged lymphadenopathy in th e abdomen, pelvis or proximal thighs. Musculoskeletal: Increased uptake at the bilateral greater trochanters consistent with trochanteric bursitis. Minimal uptake at the dorsum of the right hand likely extravasation at the reported site of injection. Aside from at the left axilla there are no other suspicious lytic, blastic or FDG avid bone lesions. IMPRESSION: 1. Prominent increased FDG uptake associated with a 1.6 cm right middle lobe nodule consistent with p rimary bronchogenic carcinoma. Patient would not be a candidate for percutaneous biopsy at this insti tution given the severity of emphysema requiring supplemental oxygen at baseline which would place pa tient at significant risk of pneumothorax with potentially subsequent rapid life-threatening cardiova scular decompensation. 2. No evident metastatic disease. Reviewed, dictated and finalized at location L. IMPRESSION: 1. Prominent increased FDG uptake associated with a 1.6 cm right middle lobe no dule consistent with primary bronchogenic carcinoma. Patient would not be a can didate for percutaneous biopsy at this institution give
[2022-05-15 09:36] LABS: Glucose Point of Care 122 mg/dl (65-105)
== END 2022-05-15 09:07 | disposition home or self-care (01) ==
PROVIDERS: PCP Internal Medicine; Visit Provider Nurse Practitioner Family
DX: R91.1 Solitary pulmonary nodule (principal); J43.9 Emphysema, unspecified; Z99.81 Dependence on supplemental oxygen; R91.8 Other nonspecific abnormal finding of lung field
CPT/HCPCS: 78815; A9552

== ENCOUNTER 2022-07-23 09:52 | Outpatient (CLI) | payer MEDICARE, SELFPAY ==
[2022-07-23 10:21] LABS: Alveolar/Arterial O2 Gradient 37.1 mmHg; Base Excess ABG 7.9 mEq/l (+/-2.0); Fractional Inspired Oxygen 28 %; HCO3 ABG 36.1 mEq/l (22.0-26.0); Oxygen Content ABG 15.5 %vol (16.0-22.0); Oxygen Saturation ABG 94.2 % (95.0-100.0); Oxyhemoglobin 93.7 % THb (90.0-100.0); PO2 ABG 78.6 mmHg (80.0-100.0); PO2 FiO2 Ratio Arterial Blood 2.81 %; Total Hemoglobin 11.7 g/dL (12.0-18.0); pH ABG 7.324 (7.350-7.450)
[2022-07-23 10:25] LABS: Device NASAL CANNULA; Modified Allen's Test Pass; PCO2 ABG 71.1 mmHg (35.0-45.0); Site Drawn RIGHT RADIAL
== END 2022-07-23 09:53 | disposition home or self-care (01) ==
LOC: ANHPFT 09:53
PROVIDERS: PCP Internal Medicine; Visit Provider Internal Medicine Pulmonary Disease
DX: J44.9 Chronic obstructive pulmonary disease, unspecified (principal)
CPT/HCPCS: 36600; 82805

== ENCOUNTER 2022-11-14 09:53 | Outpatient (CLI) | payer MEDICARE, SELFPAY ==
[2022-11-14 10:21] LABS: Alveolar/Arterial O2 Gradient 23.2 mmHg; Base Excess ABG 7.7 mEq/l (+/-2.0); Fractional Inspired Oxygen 28 %; HCO3 ABG 36.6 mEq/l (22.0-26.0); Oxygen Content ABG 17.3 %vol (16.0-22.0); Oxygen Saturation ABG 95.5 % (95.0-100.0); Oxyhemoglobin 94.9 % THb (90.0-100.0); PO2 ABG 88.3 mmHg (80.0-100.0); PO2 FiO2 Ratio Arterial Blood 3.15 %; Total Hemoglobin 12.9 g/dL (12.0-18.0); pH ABG 7.308 (7.350-7.450)
[2022-11-14 10:30] LABS: Device NASAL CANNULA; Modified Allen's Test Pass; PCO2 ABG 74.7 mmHg (35.0-45.0); Site Drawn RIGHT RADIAL
== END 2022-11-14 09:54 | disposition home or self-care (01) ==
LOC: ANHPFT 09:54
PROVIDERS: PCP Internal Medicine; Visit Provider Nurse Practitioner Family
DX: J96.11 Chronic respiratory failure with hypoxia (principal); J96.12 Chronic respiratory failure with hypercapnia
CPT/HCPCS: 36600; 82805

== ENCOUNTER 2023-09-08 12:23 | Outpatient (CLI) | payer MEDICARE, SELFPAY ==
--- NOTE | ~2023-09-08 | XR_ITS ---
XR abdomen/kub 1V 09/08/2023 14:00 Indication: Umbilical hernia pain Procedure: KUB Comparison: CT dated 11/15/2019 Findings: Bowel gas pattern nonobstructive. There are calcified granulomas of the spleen. There are c holecystectomy clips. There are calcifications overlying the left kidney, consistent with renal stone s. There are pelvic phleboliths. Mild lumbar spondylosis. Mild osteoarthritis of the hips. Impression: 1: Nonobstructive bowel gas pattern. 2: Possible left nephrolithiasis versus vascular calcifications. Reviewed, dictated and finalized at location B. Impression: 1: Nonobstructive bowel gas pattern. 2: Possible left nephrolithiasis versus vascular calcifications.
[2023-09-08 13:16] LABS: Hematocrit 37.7 % (37.0-47.0); Hemoglobin 11.7 g/dL (12.0-15.0); Mean Corpuscular Hemoglobin 30.4 pg (26-34); Mean Corpuscular Volume 97.9 fl (80-100); Platelet Count Result 301 k/mm3 (150-375); Red Blood Count 3.85 M/mm3 (4.2-5.4); Red Cell Distribution Width 12.4 % (11.5-14.5); White Blood Count 10.1 K/mm3 (4.5-10.0)
[2023-09-08 13:25] LABS: Iron 93 ug/dL (37-170)
[2023-09-08 13:30] LABS: Alanine Aminotransferase 16 U/L (6-35); Albumin Level 4.7 g/dL (3.5-5.1); Alkaline Phosphatase 86 U/L (38-126); Aspartate Amino Transferase 26 U/L (14-36); Bilirubin,Total 0.5 mg/dL (0.2-1.3); Blood Urea Nitrogen 15 mg/dL (7-17); Calcium 10.4 mg/dL (8.4-10.2); Carbon Dioxide > 40 mmol/L (22-30); Chloride 83 mmol/L (98-107); Estimated Glomerular Filt Rate > 60; Glucose 118 mg/dL (65-110); Potassium 4.8 mmol/L (3.4-5.0); Sodium 136 mmol/L (137-145)
[2023-09-08 13:40] LABS: Percent Iron Saturation 24 % (20-50)
[2023-09-08 13:42] LABS: INR 0.9; Prothrombin Time 12.7 Seconds (11.1-14.7)
[2023-09-08 14:00] LABS: Hepatitis B Surface Antigen Negative (Negative)
[2023-09-08 14:06] LABS: HAV RESULT Negative (Negative); Hepatitis B Core IgM Result Negative (Negative)
[2023-09-08 14:18] LABS: Hepatitis C Virus Antibody Negative (Negative)
[2023-09-09 16:27] LABS: Alpha-1-Antitrypsin, QN 175 mg/dL (83-199); Ceruloplasmin 35 mg/dL (14-48)
[2023-09-10 13:39] LABS: Alpha Fetoprotein Tumor Marker 12.1 ng/mL
[2023-09-15 22:07] LABS: Actin Antibody (IgG) <20 U (<20)
[2023-09-17 08:54] LABS: Mitochondrial (M2) Ab (IgG) <20.0 U
[2023-09-17 13:09] LABS: LKM 1 Antibody <=20.0 U (<=20.0)
[2023-09-17 17:29] LABS: ALT 16 U/L (6-29); Alpha-2-Macroglobulin 228 mg/dL (106-279); Apolipoprotein A1 146 mg/dL (101-198); Fibrosis Score 0.16; Fibrosis Stage F0; GGT 16 U/L (3-65); Haptoglobin 255 mg/dL (43-212); Necroinflammat Act Grade A0; Reference ID 5014299; Total Bilirubin 0.4 mg/dL (0.2-1.2)
== END 2023-09-08 12:24 | disposition home or self-care (01) ==
PROVIDERS: PCP Internal Medicine; Visit Provider Nurse Practitioner
DX: K74.60 Unspecified cirrhosis of liver (principal); R06.02 Shortness of breath; R10.9 Unspecified abdominal pain; J12.82 Pneumonia due to coronavirus disease 2019; U07.1 COVID-19; R91.1 Solitary pulmonary nodule; K42.9 Umbilical hernia without obstruction or gangrene
CPT/HCPCS: 36415; 74018; 80053; 80074; 81596; 82103; 82105; 82390; 82728; 83520; 83540; 83550; 85027; 85610; 86038; 86039; 86364; 86376

== ENCOUNTER 2023-09-11 12:55 | Emergency (ER) | payer MEDICARE, SELFPAY ==
--- NOTE | ~2023-09-11 | CT_ITS ---
EXAMINATION: CT abdomen pelvis w con DATE: 09/11/2023 15:20 INDICATION: Right lower quadrant abdominal pain. Suprapubic abdominal pain. Nausea. TECHNIQUE: Computed tomography (CT) of the abdomen and pelvis was performed with 100 mL Omnipaque 350 intravenous contrast. Automated exposure control and iterative reconstruction technique were employe d. The dose-length product was 497.92 mGy-cm. COMPARISON: CT abdomen and pelvis 11/15/2019 FINDINGS: The visualized portions of the lung bases demonstrate emphysema and mild atelectasis. A riky cified left lung nodule is consistent with old granulomatous disease. No pleural effusion. The heart size is normal. No pericardial effusion. Calcifications in the liver and spleen are consistent with o ld granulomatous disease. There are changes of cholecystectomy. The pancreas and adrenal glands are n ormal. There is cortical thinning of the kidneys. There are cysts in the kidneys measuring up to 7 mm on the right. There is diverticulosis of the colon without evidence of diverticulitis. There is a ve ntral hernia containing a wall of nonobstructed transverse colon. The appendix is normal. There is ca lcified atherosclerosis of the aorta and many of the other arteries. There are no pathologically enla rged lymph nodes. There is no free intraperitoneal fluid. There is mild lumbar spondylosis. IMPRESSION: 1. Ventral hernia containing a wall of nonobstructed transverse colon. Reviewed, dictated and finalized at location E.
[2023-09-11 13:00] VITALS: BP 107/60; PULSE 95; RESP 16; TEMP 36.7; O2SAT 98
[2023-09-11 14:30] LABS: Basophils Percent Auto 0.3 % (0.2-1.2); Eosinophils Absolute Auto 0.1 K/mm3 (0-0.3); Eosinophils Percent Auto 1.1 % (0-4.4); Hematocrit 35.3 % (37.0-47.0); Hemoglobin 11.1 g/dL (12.0-15.0); Immature Granulocyte Absolute 0.06 K/mm3 (0.00-0.031); Immature Granulocyte Percent A 0.6 % (0-0.5); Lymphocytes Absolute Auto 1.25 K/mm3 (0.9-3.2); Lymphocytes Percent Auto 11.6 % (18.3-44.2); Mean Corpuscular HGB Conc 31.4 g/dl (32-36); Mean Corpuscular Hemoglobin 29.5 pg (26-34); Mean Corpuscular Volume 93.9 fl (80-100); Mean Platelet Volume 8.7 fl (7.4-10.4); Monocytes Absolute Auto 0.7 K/mm3 (0.1-0.6); Neutrophils Absolute Auto 8.6 K/mm3 (1.3-6.7); Neutrophils Percent Auto 80.4 % (45.5-73.1); Platelet Count Result 265 k/mm3 (150-375); Red Blood Count 3.76 M/mm3 (4.2-5.4); Red Cell Distribution Width 12.2 % (11.5-14.5); White Blood Count 10.8 K/mm3 (4.5-10.0)
[2023-09-11 14:55] LABS: Alanine Aminotransferase 14 U/L (6-35); Albumin Level 4.3 g/dL (3.5-5.1); Alkaline Phosphatase 72 U/L (38-126); Aspartate Amino Transferase 21 U/L (14-36); Bilirubin,Total 0.6 mg/dL (0.2-1.3); Blood Urea Nitrogen 10 mg/dL (7-17); Calcium 9.3 mg/dL (8.4-10.2); Carbon Dioxide > 40 mmol/L (22-30); Chloride 80 mmol/L (98-107); Estimated CRCL calculation 53 ml/min; Estimated Glomerular Filt Rate > 60; Glucose 116 mg/dL (65-110); Lipase 82 U/L (23-300); Potassium 4.1 mmol/L (3.4-5.0); Sodium 129 mmol/L (137-145)
--- NOTE | 2023-09-11 15:04 | ED.ABDPAIN ---
HPI - Abdominal Pain General Chief Complaint: Abdominal Pain Stated Complaint: pain on the RIGHT side x1 month Time Seen by Provider: 09/11/23 14:32 History of Present Illness HPI narrative: Patient is a 67-year-old female with history of COPD on 2 L nasal cannula, hyperlipidemia, hypertension presenting with abdominal pain. Patient states that she has been having off and on right-sided abdominal pain for about the last month. She has been seen by Gastroenterology who feels that it is related to her hernia. States that she has also been told that she has kidney stones. Last night, the pain became more severe and lasted throughout the night. States that she was taking her tramadol without relief. Reports nausea but no vomiting. Reports chronic diarrhea. No chest pain or new shortness of breath. No fevers. No further complaints. Related Data Home Medications Medication Instructions Recorded Confirmed acetaminophen 500 mg tablet 1,000 mg PO BID PRN Pain 03/14/21 09/16/23 atorvastatin 20 mg tablet 20 mg PO HS 03/14/21 09/16/23 furosemide 20 mg tablet 20 mg PO 04/30/22 09/16/23 trazodone 100 mg tablet 100 mg PO 04/30/22 09/16/23 ferrous sulfate 325 mg (65 mg 325 mg PO 07/02/22 09/16/23 iron) tablet (FeroSul) potassium chloride 20 mEq 20 meq PO 07/02/22 09/16/23 tablet,extended release cholecalciferol (vitamin D3) 50 50 mcg PO DAILY 09/08/23 09/16/23 mcg (2,000 unit) capsule metoprolol succinate 25 mg 25 mg PO DAILY 09/08/23 09/16/23 tablet,extended release 24 hr Allergies Allergy/AdvReac Type Severity Reaction Status Date / Time No Known Allergies Allergy Verified 09/16/23 10:17 Review of Systems Review of Systems: All systems reviewed & are unremarkable except as noted in HPI and below PMFSH Past Medical History Medical History (Updated 09/16/23 @ 11:00 by Lillie Farley) Asthma Chronic obstructive pulmonary disease with (acute) exacerbation Chronic respiratory failure with hypoxia and hypercapnia On home oxygen during the day and iVAPS at night Diastolic dysfunction Echocardiogram November 2016 Emphysema lung Former smoker, stopped smoking in distant past Hyperlipidemia Pulmonary hypertension Severe pulmonary hypertension with RVSP of 68 noted on echo from November 2016 Recurrent umbilical hernia Surgical History Surgical History History of bursectomy left elbow History of laparoscopic cholecystectomy (08/2017) History of tubal ligation History of umbilical hernia repair (08/2017) History of vaginal hysterectomy Family History Family History Sibling Family history of malignant neoplasm of breast in first degree relative Family history of chronic obstructive pulmonary disease Father Family history of chronic obstructive pulmonary disease Leukemia Mother Family history of chronic obstructive pulmonary disease Diabetes mellitus Son Cardiac arrest Daughter History of blood clots Asthma Other Diabetes mellitus Other Cerebrovascular accident Social History Social History Social History: She is on disability due to her COPD. She has 2 grown children. She smoked 1 pack of cigarettes per day for 45 years but quit smoking in 2018. She lives with her significant other. Her significant other is the durable power claim attorney as well as her children. Primary care physician: Dr. Trenton Doyle Code status: Full code Smoking packs per day: 1 Smoking cigarettes per day: 20.0 Years smoked: 45 Smoking pack-years: 45.00 Smoking status: Former smoker Tobacco type: cigarettes Alcohol intake: never Substance use: never Lack of Transportation: YES Lack of Food: Never True Current Housing: I Have Housing Concerned About Future Housing: No Difficulty Paying Gas/Elec
[2023-09-11 15:43] LABS: Appearance Urine Clear (Clear); Bilirubin Urine Negative (Negative); Blood Urine Negative (Negative); Color Urine Yellow (Yellow); Glucose Urine UA Negative (Negative); Ketones Urine Negative (Negative); Leukocyte Esterase Ur Negative LEU/UL (Negative); Nitrate Urine Negative (Negative); Protein Urine Negative (Negative); Specific Grav Ur 1.017 (1.001-1.035); Urobilinogen Urine 0.2 mg/dL (<2.0); pH Urine 7.5 (5.0-9.0)
[2023-09-11 15:44] LABS: Add Urine Microscopic? NO
[2023-09-11] MEDS: MORPHINE SULFATE (*CRX) 2 MG/ML INJ IV PUSH (16:17)
[2023-09-11] MEDS: SODIUM CHLORIDE 0.9% IV 1,000 ML 999 ML IV CONT ×2 (16:18→18:59)
[2023-09-11 16:19] VITALS: BP 103/53; PULSE 79; RESP 16; O2SAT 100
[2023-09-11] MEDS: HYDROcodone/acetaminophen (*CRX) 5-325 MG TABLET 1 TAB PO (17:46)
[2023-09-11 18:56] VITALS: BP 84/47; PULSE 81; RESP 16; O2SAT 100
--- NOTE | 2023-09-11 18:56 | PC.NURSE ---
EDP notified of patient BP. EDP placed new medication orders.
== END 2023-09-11 21:03 | disposition home or self-care (01) ==
PROVIDERS: Emergency Provider Emergency Medicine; PCP Internal Medicine
DX: K43.9 Ventral hernia without obstruction or gangrene (principal); J44.9 Chronic obstructive pulmonary disease, unspecified; Z99.81 Dependence on supplemental oxygen; J96.11 Chronic respiratory failure with hypoxia; J96.12 Chronic respiratory failure with hypercapnia; J43.9 Emphysema, unspecified; I11.9 Hypertensive heart disease without heart failure; I27.20 Pulmonary hypertension, unspecified; E78.5 Hyperlipidemia, unspecified; Z87.891 Personal history of nicotine dependence; Z90.49 Acquired absence of other specified parts of digestive tract; Z90.710 Acquired absence of both cervix and uterus; Z79.899 Other long term (current) drug therapy
CPT/HCPCS: 36415; 74177; 80053; 81003; 83690; 85025; 96361; 96374; 96375; 99284; A9270; J2270; J7030; Q9967

== ENCOUNTER 2024-05-19 12:28 | Outpatient (NON) | payer MEDICARE, SELFPAY ==
--- OUTSIDE RECORDS SUMMARY | 2024-05-19 12:53 | XMS_ITS | Encounter Summary ---
Author Organization [facility] Address [address] [place] [address] Care Team Providers Care Bag Filler Machine Operator Name Role Phone Unavailable Primary Care Provider Unavailabl e Encounter Details Date Type Department Care Team (Late st Contact Info) Description 09/16/2017 Lab Requisition [facility] [place] [address] [place] [address] Scooter Stone MD [address] [place] [address] Encounter for general adult medical examination without abnormal findings Social History Tobacco Use Types Packs/Day Years Used Date Smoking Tobacco: Never Assessed Comments Unknown Sex and Gender Information Value Date Recorded Sex Assigned at Not on file Legal Sex Female 5:06 AM CDT Gender Identity Not on file Sexual Orientation Not on file documented as of this encounter Plan of Treatment Not on file documented as of this encounter Procedures Procedure Name Priority Date/Time Associated Diagnosis Comments CBC WITH DIFFERENTIAL Stat 09/16/2017 9:55 AM CDT Encounter for general adult medical examination without abnormal findings BRAIN NATRIURETIC PEPTIDE, BNP OR PROBNP Stat 09/16/2017 9:55 AM CDT Encounter for general adult medical examination without abnormal findings COMPREHENSIVE METABOLIC PANEL Stat 09/16/2017 9:55 AM CDT Encounter for general adult medical examination without abnormal findings documented in this encounter Results * (ABNORMAL) BRAIN NATRIURETIC PEPTIDE, BNP OR PROBNP (09/16/2017 9:55 AM CDT) PROBNP, N TERMINAL 391(H) <124 pg/mL 09/16/2017 11:37 AM CDT [facility] Comment: Reference values for screening purposes based on molded parts inspector's recommendation: Patients less than 75 years: <125 pg/mL Patients 75 years and older: <450 pg/mL Reference values for determination of acute congestive heart failure in dyspneic patients based on PRIDE study (Am J Cardiol 2005;95:948): Patients less than 50 years: <450 pg/mL (Negative predictive value= 99%) Patients 50 years and older: <900 pg/mL (Negative predictive value= 92%) Rule out cutpoint, all ages: <300 pg/mL (Negative predictive value= 99%) Blood Venipuncture / Unknown 09/16/2017 9:55 AM CDT 09/16/2017 10:43 AM CDT us Scooter Stone MD CHEMISTRY ORDERABLES Final R esult [facility] SERVICES [facility]# [id number] [address] [facility] [place] [address] * (ABNORMAL) COMPREHENSIVE METABOLIC PANEL (09/16/2017 9:55 AM CDT) SODIUM 132(L) 136 - 145 mmol/L 09/16/2017 11:37 AM T [facility]ORATORY SERVICES - . [facility] POTASSIUM 4.1 3.5 - 5.0 mmol/L 09/16/2017 11:37 AM T [facility] SERVICES - . [facility] CHLORIDE 89(L) 98 - 107 mmol/L 09/16/2017 11:37 AM T [facility]ORAT[facility] SERVICES - . [facility] CO2 33(H) 22 - 29 mmol/L 09/16/2017 11:37 AM [facility] - . [facility] CALCIUM 10.0 8.6 - 10.2 mg/dL 09/16/2017 11:37 AM T [facility] - [facility] BUN 9 6 - 20 mg/dL 09/16/2017 11:37 AM T [facility] - . [facility] CREATININE 0.73 0.51 - 0.95 mg/dL 09/16/2017 11:37 AM T [facility] - . [facility] GLUCOSE 133(H) 74 - 99 mg/dL 09/16/2017 11:37 AM T [facility] TOTAL PROTEIN 6.7 6.7 - 8.6 g/dL 09/16/2017 11:37 AM [facility] ALBUMIN 3.6 3.5 - 5.2 g/dL 09/16/2017 11:37 AM [facility] BILIRUBIN TOTAL 0.3 0.3 - 1.2 mg/dL 09/16/2017 11:37 AM [facility] ALKALINE PHOSPHATASE 108(H) 35 - 104 U/L 09/16/2017 11:37 AM [facility] AST 35(H) <33 U/L 09/16/2017 11:37 AM [facility]. [facility] ALT 37(H) <34 U/L 09/16/2017 11:37 AM [facility] GFR >60 >=60 mL/min/1.7 3 sq meter 09/16/2017 11:37 AM [facility] Comment: eGFR has not been validated for use in the elderly (> 70 years of age), women, patients with serious co-morbid conditions, or persons with extremes of body size or muscle mass and should also be interpreted with caution in patients with acute kidney failure, dialysis dependent patients, patients reporting exceptional dietary intake (e.g. vegetarian diet, high protein diets, creatine supplementation), and patients with severe liver disease. Based on National Kidney Disease Education Program If patient is , please refer to the GFR result. GFR, >60 >=60 mL/min/1.7 3 sq meter 09/16/2017 11:37 AM [facility] ANION GAP 10 8 - 16 mmol/L 09/16/2017 11:37 AM [facility] Blood Venipuncture / Unknown 09/16/2017 9:55 AM CDT 09/16/2017 10:43 AM [facility] Narrative [facility] LABORATORY [facility] - 09/16/2017 11:37 AM CDT Samples containing indocyanine green cause interferences on Total and/or Direct Bilirubin and must not be measured. us Scooter Stone MD CHEMISTRY ORDERABLES Final R esult [facility]ORATORY SERVICES - [facility]# [id number] [address] [place] [address] * (ABNORMAL) CBC WITH DIFFERENTIAL (09/16/2017 9:55 AM CDT) WBC 10.8(H) 4.0 - 9.8 K/uL 09/16/2017 11:24 AM CDT [facility] - . [facility] RBC 2.98(L) 3.90 - 4.90 M/uL 09/16/2017 11:24 AM CDT [facility] - . [facility] HEMOGLOBIN 9.1(L) 11.8 - 14.8 g/dL 09/16/2017 11:24 AM CDT [facility] - . [facility] HEMATOCRIT 28.8(L) 35.5 - 44.0 % 09/16/2017 11:24 AM CDT [facility] - . [facility] MCV 96.6 82.0 - 99.0 fL 09/16/2017 11:24 AM CDT [facility] SERVICES - . [facility] MCH 30.5 27.2 - 32.6 pg 09/16/2017 11:24 AM CDT [facility] SERVICES - . [facility] MCHC 31.6 31.5 - 35.5 g/dL 09/16/2017 11:24 AM CDT [facility] - . [facility] RDW 13.8 11.5 - 14.5 % 09/16/2017 11:24 AM CDT [facility] - . [facility] RDW-STDEV 49.1(H) 37.1 - 48.7 fL 09/16/2017 11:24 AM CDT [facility] - . [facility] PLATELETS 362(H) 140 - 350 K/uL 09/16/2017 11:24 AM CDT [facility] - . [facility] MPV 9.5 9.3 - 12.4 fL 09/16/2017 11:24 AM CDT [facility] - . [facility] NEUTROPHILS 69 % 09/16/2017 11:24 AM CDT [facility] - [facility] LYMPHOCYTES 15 % 09/16/2017 11:24 AM CDT [facility] MONOCYTES 8 % 09/16/2017 11:24 AM CDT [facility] - [facility] EOSINOPHILS 7 % 09/16/2017 11:24 AM CDT [facility]ATORY SERVICES [facility] BASOPHILS 0 % 09/16/2017 11:24 AM CDT [facility] IMMATURE GRANULOCYTES 1 % 09/16/2017 11:24 AM CDT [facility] Comment:IG (Immature Granulo cyte) count includes Metamyelocytes, Myelocytes, and Promyelocytes NEUTROPHIL ABSOLUTE 7.47(H) 1.90 - 7.00 K/uL 09/16/2017 11:24 AM CDT [facility] LYMPHOCYTE ABSOLUTE 1.63 0.70 - 4.50 K/uL 09/16/2017 11:24 AM CDT [facility] MONOCYTE ABSOLUTE 0.81 0.10 - 1.30 K/uL 09/16/2017 11:24 AM CDT [facility] - [facility] EOSINOPHIL ABSOLUTE 0.75(H) 0.00 - 0.70 K/uL 09/16/2017 11:24 AM CDT [facility] BASOPHILS ABSOLUTE 0.03 0.00 - 0.20 K/uL 09/16/2017 11:24 AM CDT [facility] IMMATURE GRANULOCYTES ABSOLUTE 0.09(H) 0.00 - 0.03 K/uL 09/16/2017 11:24 AM [facility] Blood Venipuncture / Unknown 09/16/2017 9:55 AM CDT 09/16/2017 10:43 AM CDT us Scooter Stone MD HEMATOLOGY ORDERABLES Final Result [facility] SERVICES - [facility]# [id number] [address] [place] [address] documented in this encounter Visit Diagnoses Diagnosis Encounter for general adult medical examination without abnormal findings Routine general medical examination at a health care facility documented in this encounter
--- OUTSIDE RECORDS SUMMARY | 2024-05-19 12:53 | XMS_ITS | Clinical Summary ---
Author Organization [facility] [address] [place] [address] Care Team Providers Care Rehabilitator Name Role Phone Trenton Gaming MD Unavailable [phone] Trenton Gaming MD Primary Care Provider Dinorah Cummings MD Unavailable [phone] Nikhil Yen NP Unavailable Raudel Mota MD Unavailable Cheikh Scanlon MD PhD Unavailable Terri Perez MD Unavailable [phone] Varun Rios DO Unavailable [phone] Allergies Active Allergy Reactions Criticality Noted Date Comments Albuterol Agitation,Anxiety Low 04/04/2022 JITTERY JITTERY Conjugated Estrogens Hives Medium 03/14/2020 Gabapentin Dizziness Medium 08/14/2023 Sulfamethoxazole-Trime thoprim Shortness of breath High 02/04/2021 Medications albuterol HFA (PROVENTIL HFA,VENTOLIN HFA,PROAIR HFA) 90 mcg/actuation inhalerIndications :Chronic Obstructive Pulmonary Disease Inhale 2 puffs every 6 (six) hours as needed for wheezing 11 am- 7pm at night as needed Active atorvastatin (LIPITOR) 20 mg tabletIndications: hyperlipidemia Take 1 tablet (20 mg total) by mouth nightly 30 tablet 1 04/10/19 23 Active furosemide (LASIX) 20 mg tabletIndications: Edema,hypertension Take 1 tablet (20 mg total) by mouth daily 30 tablet 04/10/19 23 Active levalbuterol (XOPENEX) 0.63 mg/3 mL nebulizer solutionIndication s:Acute Asthma Attack Take 3 mL (0.63 mg total) by nebulization every 8 (eight) hours as needed for wheezing 30 mL 2 04/10/19 23 Active omeprazole (PriLOSEC) 20 mg capsuleIndications :GI Bleed Take 1 capsule (20 mg total) by mouth daily May take additional dose if needed 30 capsule 2 04/10/19 23 Active Additional Information Patient not taking.Reported on 03/22/2024 traZODone (DESYREL) 100 mg tabletIndications: major depressive disorder Take 1 tablet (100 mg total) by mouth nightly 30 tablet 1 04/10/19 23 Active acetaminophen (TYLENOL) 325 mg tabletIndications: Fever,Pain Take 2 tablets (650 mg total) by mouth every 4 (four) hours as needed for pain, headaches or fever 30 tablet 1 04/10/19 23 Active Additional Information Patient not taking.Reported on 03/22/2024 oxygenIndications: Dyspnea Inhale 2 L/min continuously 3L with activity 4L at HS 04/12/19 Active ferrous sulfate 325 mg (65 mg of elemental iron) tabletIndications: Iron Deficiency Anemia Take 1 tablet (325 mg total) by mouth nightly Active potassium chloride ER (KLOR-CON) 20 mEq CR tabletIndications: supplement Take 1 tablet (20 mEq total) by mouth daily rx [id number] Active cholecalciferol (VITAMIN D-3) 2000 unit tabletIndications: Vitamin D Deficiency Take 1 tablet (2,000 Units total) by mouth daily Active guaiFENesin (ROBITUSSIN) syrup 100 mg/5 mLIndications:Coug h Take 10 mL by mouth every 4 (four) hours as needed for cough 120 mL 11/20/19 23 Active Additional Information Patient not taking.Reported on 03/22/2024 polyethylene glycol (MIRALAX) 17 gram packetIndications: constipation Take 1 packet (17 g total) by mouth daily as needed for constipation 11/20/19 23 Active lidocaine (LIDODERM) 5 %Indications:back pain Place 1 patch on the skin daily Remove & discard patch within 12 hours or as directed by MD. Active metoprolol XL (TOPROL-XL) 25 mg extended release tabletIndications: hypertension Take 1 tablet (25 mg total) by mouth daily 30 tablet 04/21/19 24 Active Additional Information Patient not taking.Reported on 03/22/2024 fluticasone propionate (FLONASE) 50 mcg/actuation nasal sprayIndications:A llergic Rhinitis Administer 1 spray into each nostril 2 (two) times a day 1 each 05/22/19 24 Active Additional Information Patient not taking.Reported on 03/22/2024 ondansetron ODT (ZOFRAN-ODT) 4 mg disintegrating tabletIndications: nausea Take 1 tablet (4 mg total) by mouth every 6 (six) hours as needed for nausea or vomiting Nausea 06/30/19 24 Active roflumilast (DALIRESP) 500 mcg tabletIndications: Prevention of Bronchospasm with Chronic Bronchitis Take 1 tablet (500 mcg total) by mouth daily 30 tablet 11 07/13/19 24 Active fluticasone-umecli din-vilanter (Trelegy Ellipta) 100-62.5-25 mcg inhalerIndications :Bronchospasm Prevention with COPD Inhale 1 puff daily 30 each 07/13/19 24 Active traMADoL (ULTRAM) 50 mg tablet Take 1 tablet (50 mg total) by mouth every 6 (six) hours 10 tablet 08/25/19 24 Active Additional Information Patient not taking.Reported on 03/22/2024 HYDROcodone-acetam inophen (NORCO) 7.5-325 mg per tablet 09/24/19 24 Active ibuprofen (ADVIL,MOTRIN) 600 mg tablet every 8 hours Active naloxone (NARCAN) 4 mg/actuation spray,non-aerosol CALL 911. SPRAY CONTENTS OF ONE SPRAYER INTO ONE NOSTRIL. REPEAT IN 2 TO 3 MINUTES IF SYMPTOMS OF OPIOD EMERGENCY Nasal for 30 Days Active pregabalin (LYRICA) 25 mg capsule daily Holding off right now 08/12/19 24 Active sucralfate (CARAFATE) 1 gram tablet Oral Active omeprazole (PriLOSEC) 40 mg capsule Take 1 capsule (40 mg total) by mouth 2 (two) times a day 09/08/19 24 Active baclofen (LIORESAL) 10 mg tablet Take 1 tablet (10 mg total) by mouth 2 (two) times a day as needed 03/17/19 25 Active fluconazole (DIFLUCAN) 150 mg tablet TAKE 1 TABLET BY MOUTH DAILY FOR 1 DAY 03/10/19 25 Active predniSONE (DELTASONE) 20 mg tablet TAKE 2 TABLETS BY MOUTH DAILY FOR 5 DAYS 03/10/19 25 Active Active Problems Patient Care Coordination No te Formatting of this note migh t be different from the original. Referring provider: Dr. Elroy Scanlon Ms. Zainab Maya is a 66-year-old with a lung cancer. She initially presented with symptoms of shortness of breath and chest pain. On 03/05/2022 the patient underwent a chest x-ray which incidentally detected a 1.5 cm focal opacity in the right upper lobe, suspicious for a pulmonary nodule. There is a 0.5 cm focal opacity in the left upper lobe, likely calcified versus noncalcified pulmonary nodule. The patient subsequently underwent a CTA of the chest with contrast which showed a mildly spiculated 1.3 cm pulmonary nodule in the anterior right middle lobe. There were a few scattered sub 4 mm pulmonary nodules within the right middle lobe and right lower lobe as well as the left lower lobe. There were granulomatous calcifications in the mediastinum and poli as well as in the liver and spleen. There was pulmonary artery enlargement. There was mild asymmetric nodularity of the parenchyma of the superior aspect of the right breast. There were coronary artery calcifications. There was severe pulmonary emphysema. On 04/03/2022 the patient underwent a repeat CTA of the chest which showed a suspicious nodule in the anterior lung measuring 12 mm. This has increased in size from 9 mm. There was no pulmonary embolism or other acute abnormality identified. On 05/15/2022 the patient underwent a PET scan which showed an intensely FDG avid right upper lobe lung nodule measuring 1.7 x 1.9 cm with a maximum SUV of 16. There were numerous additional scattered noncalcified pulmonary nodules noted in both lungs which demonstrated uptake similar to the blood pool. On 06/06/2022 the patient underwent a bronchoscopy. 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 During the procedure the patient became apneic and hypoxemic the ICU. She was subsequently discharged from the hospital on 06/12/2022. On 04/07/2022 the patient underwent carotid ultrasound which showed 16-49% stenosis in the right internal carotid artery with 52-79% stenosis in the left. Antegrade flow noted bilateral vertebral arteries. Patient has a history of COPD and is on 2 L of home supplemental oxygen at baseline and 3 L with activity. She uses a BiPAP at night. She also has a history of congestive heart failure. She is a former smoker who quit in August of 2017. Patient is getting set up for pulmonary function testing. Patient presents today for further surgical evaluation. Problem Noted Date Diagnosed Date Palliative care encounter 05/15/2023 Moderate protein-calorie malnutrition 05/12/2023 COPD, severity to be determined 10/21/2022 Personal history of radiation therapy 09/11/2022 Malignant neoplasm of right lung 06/20/2022 Cancer Staging:Clinical stage from 07/14/2022:Stage IA2(cT1b, cN0, cM0) - Signed by Terri Perez MD on 07/14/2022 Respiratory failure 03/13/2022 Pulmonary emphysema, unspecified emphysema type 03/12/2022 Acute on chronic respiratory failure with hypoxia and hypercapnia 03/12/2022 HTN (hypertension) 03/12/2022 Chronic diastolic congestive heart failure 03/11 COPD exacerbation 03/05/2022 Iron deficiency anemia 04/01/2021 QIANA (obstructive sleep apnea) 01/28/2021 GERD (gastroesophageal reflux disease) Shortness of breath Hypercapnemia Pulmonary nodule Encounters Date Type Department Care Team Description 05/16/2024 Telephone [facility] [address] [place] [phone] Raudel Mota MD Request For Order(s) 05/12/2024 Telephone [facility] Medical Office Building 2 Radiation Oncology [address] [place] [address] Saige Sheridan 03/22/2024 2:30 PM CRANE HOOKER Office Visit [address] [place] [phone] Raudel Mota MD Simple chronic bronchitis (HCC) (Primary Dx); Chronic respiratory failure with hypoxia and hypercapnia (HCC); Pulmonary nodule; Diastolic congestive heart failure, unspecified HF chronicity (HCC) 03/22/2024 Telephone [facility] [address] [place] [address] Raudel Mota MD from Last 3 Months Immunizations Immunization Administration Dates Next Due Pneumococcal Polysaccharide PPV23 03/14/2020 Surgical History Surgery Date Site/Laterality Comments CHOLECYSTECTOMY 03/02/2017 - 03/01/2018 ELBOW SURGERY Right TUBAL LIGATION 03/02/1979 - 03/01/1980 BREAST BIOPSY Left HYSTERECTOMY 03/02/1998 - 03/01/1999 DILATION AND CURETTAGE OF UTERUS BLADDER ASPIRATION Medical History Medical History Date Comments Lung disease Hypertension Congestive heart failure (CHF) (HCC) COPD (chronic obstructive pulmonary disease) (HC C) Emphysema lung (HCC) Peptic ulceration Hypercholesteremia Anemia Lung cancer (HCC) GERD (gastroesophageal reflux disease) Family History Medical History Relation Name Comments Leukemia Father COPD Mother Breast cancer Mother's Sister 1 Breast cancer Mother's Sister 2 Breast cancer Sister 1 COPD Sister 1 Throat cancer Sister 2 Relation Name Status Comments Father Mother Mother's Sister 1 Mother's Sister 2 Sister 1 Sister 2 Alive Social History Tobacco Use Types Packs/Day Years Used Date Smoking Tobacco: Former Cigarettes 1 45 1 973 - 2018 Smokeless Tobacco: Never Tobacco Cessation:Counseling Given: Not Answered Alcohol Use Standard Drinks/Week Comments Not Currently 0 (1 standard drink = 0.6 oz pur e alcohol) OASIS D0700: Social Isolation Answer Da te Recorded Frequency of experiencing loneliness or isolatio n Never 07/21/2023 OASIS A1250: Transportation Answer Date Recorded Lack of Transportation (Medical) No 07/21/2023 Lack of Transportation (Non-Medical) No 07/21/2023 Patient Unable or Declines to Respond No 07/21/2023 OASIS B1300: Health Literacy Answer Raphael e Recorded Frequency of needing help to read materials from doctor or pharmacy Never 07/21/2023 [facility] Utilities Answer Date Recorded In the past 12 months has e [employer] gas, oil, or water [email or web address] threatened to shut off services in your home? No 05/12/2023 Social Connection and Isolat ion Panel [NHANES] Answer Date Recorded In a typical week, how many times do you talk on the phone with family, friends, or neighbors? More than three times a week 05/12/2023 How often do you get togethe r with friends or relatives? More than three times a week 05/12/2023 How often do you attend chur ch or orthodox services? Never 05/12/2023 Do you belong to any clubs o r organizations such as sabianist groups, unions, fraternal or athletic groups, or school groups? No 05/12/2023 How often do you attend meet ings of the clubs or organizations you belong to? Never 05/12/2023 Are you , , di vorced, , never , or living with a partner? Living with partner 05/12/2023 AUDIT-C Answer Date Recorded Q1: How often do you have a drink containing alc ohol? Monthly or less 04/11/2023 Q2: How many drinks containi ng alcohol do you have on a typical day when you are drinking? 1 or 2 04/11/2023 Q3: How often do you have si x or more drinks on one occasion? Never 04/11/2023 Overall Financial Resource Strain (CARDIA) Answe r Date Recorded How hard is it for you to pa y for the very basics like food, housing, medical care, and heating? Not hard at all 05/12/2023 PHQ-2 Answer Date Recorded PHQ-2 Total Score (If total score is 3 or more points, staff should administer the PHQ-9) 2 10/16/2022 Hunger Vital Sign Answer Date Recorded Within the past 12 months, y ou worried that your food would run out before you got the money to buy more. Never true 05/12/19 24 Within the past 12 months, t he food you bought just didn't last and you didn't have money to get more. Never true 05/12/2023 PRAPARE - Transportation Answer Date Re corded In the past 12 months, has l ack of transportation kept you from medical appointments or from getting medications? No 04/30 In the past 12 months, has l ack of transportation kept you from meetings, work, or from getting things needed for daily living? No 05/12/2023 Housing Stability Vital Sign Answer Raphael e Recorded In the last 12 months, was t here a time when you were not able to pay the mortgage or rent on time? No 05/12/2023 In the last 12 months, how many places have you lived? 1 05/12/2023 In the last 12 months, was t here a time when you did not have a steady place to sleep or slept in a senior care (including now)? No 05/12/2023 Personal Safety Answer Date Recorded Have you ever been in or are you currently in a harmful physical or emotional relationship or is someone making you feel afraid or unsafe? Denies 08/25/2023 Comments No Sex and Gender Information Value Date Recorded Sex Assigned at Not on file Legal Sex Female 1:21 AM CRANE HOOKER Gender Identity Not on file Sexual Orientation Not on file Obstetrics History Last Filed Vital Signs Vital Sign Reading Time Taken Comments Blood Pressure 122/64 03/22/2024 2:31 PM CRANE HOOKER Pulse 102 03/22/2024 2:31 PM CRANE HOOKER Temperature 36.6 C (97.8 F) 03/22/2024 2:31 PM CRANE HOOKER Respiratory Rate 18 03/22/2024 2:31 PM CRANE HOOKER Oxygen Saturation 99% 03/22/2024 2:31 PM CRANE HOOKER 2L 02 Inhaled Oxygen Concentration - - Weight 60.3 kg (133 lb) 03/22/2024 2:31 PM CRANE HOOKER Height 162.6 cm (5' 4 ) 03/22/2024 2:31 PM CRANE HOOKER Body Mass Index 22.83 03/22/2024 2:31 PM CRANE HOOKER Plan of Treatment Health Maintenance Due Date Last Done Comments Breast Cancer Screening-Mammogram 1957 Colon Cancer Screening-Colonoscopy 1957 Hepatitis C Screening 1957 Osteoporosis Screening-Bone Density Scan 1957 DTaP/Tdap/Td Vaccine (1 - Tdap) 1968 Hepatitis B Screening 11/05/1975 Zoster Vaccine (1 of 2) 11/05/2007 Well Visit 65+ 2022 Depression Screening 10/17/2023 10/16/2022, 10/16/2022, 06/06/2022, Additional history exists Covid-19 Vaccine (5 - 2023-2 5 season) 2024 11/19/2023, 08/22/2021, 05/22/2020, Additional history exists Fall Risk Assessment 05/21/2024 05/22/2023 Pneumococcal vaccine 65+ Completed 12/02/2022, 03/02 Influenza Vaccine Completed 11/19/2023, , 12/02/2022 Insurance MEDICARE RAILROAD Member Subscriber Plan / Payer (Ef fective 2011-Present) Name:Zainab Maya Member ID:[id number] Relation to Subscriber:Self Name:Zainab Maya Subscriber ID:[id number] Payer ID:[id number] Group ID:Not on file Type:MEDICARE TRADITIONAL Address: [address] MEDIC[address] RAILROAD [facility] Member Subscriber Plan / Payer (Ef fective 2016-Present) Name:Zainab Maya Shana Relation to Subscriber:Self Name:Zainab Maya Payer ID:[id number] Group ID:[id number] N Type:COMMERCIAL Address: [address] [place] [id number] MEDICARE RAILROAD [facility] Advance Directives For more information, please contact: [phone] Documents on File Type Date Recorded Patient Farm Implement Mechanic Expl anation ADVANCE DIRECTIVE 04/10/2022 11:29 AM POLST - Phys Order for PT Preferences ADVANCE DIRECTIVE 03/18/2022 2:22 PM POLST - Phys Order for PT Preferences * LIMITED - No CPR (Latest Code Status on File) Date Activated Date Inactivated Comments 05/12/2023 4:47 AM 05/22/2023 8:01 PM * Full Code Date Activated Date Inactivated Comments 05/12/2023 4:12 AM 05/12/2023 4:47 AM * LIMITED - No CPR Date Activated Date Inactivated Comments 04/27/2023 3:45 PM 05/08/2023 7:45 PM * Full Code Date Activated Date Inactivated Comments 04/11/2023 6:35 PM 04/27/2023 3:45 PM * LIMITED - No CPR Date Activated Date Inactivated Comments 11/15/2022 4:04 PM 11/19/2022 7:36 PM Care Teams Rehabilitator Relationship Specialty Start Date End Date Trenton Gaming MD [address] [place] [address] PCP - General Internal Medicine 04/03/22 Trenton Gaming MD [address] [place] [address] Referring Physician Internal Medicine 03/14/22 Dinorah Cummings MD [address] [place] [address] Referring Physician Neurology 06/26/22 Nikhil Yen NP [address] [address] Wholesale Buyer Nurse Practitioner 06/26/22 Raudel Mota MD [address] [place] [address] [address] [place] [address] Surgeon Pulmonary Disease 06/26/22 Cheikh Scanlon MD PhD [address] [place] [address] MEDICAL ONCOLOGY, [facility] [address] [place] [address] Medical Oncologist/Family Welfare Social Work Professor Medical Oncology 06/26/22 Terri Perez MD [address] [address] Radiation Oncologist Radiation Oncology 09/22/23 Varun Rios DO [address] [place] [address] Surgeon Surgery 10/05/23
--- OUTSIDE RECORDS SUMMARY | 2024-05-19 12:53 | XMS_ITS | Encounter Summary ---
Author Organization [employer] Address [address] [place] [address] Care Team Providers Care Cupola Charger Insulation Name Role Phone Unavailable Primary Care Provider Unavailabl e Encounter Details Date Type Department Care Team (Late st Contact Info) Description 09/25/2017 Lab Requisition [facility] General Laboratory Services [address] [place] [address] Scooter Stone MD [address] [place] [address] Encounter for general adult medical [...] Procedure Name Priority Date/Time Associated Diagnosis Comments COMPREHENSIVE METABOLIC PANEL Routine 09/25/2017 5:58 AM CDT Encounter for general adult medical examination without abnormal findings documented in this encounter Results * (ABNORMAL) COMPREHENSIVE METABOLIC PANEL (09/25/2017 5:58 AM CDT) SODIUM 131(L) 136 - 145 mmol/L 09/25/2017 10:04 AM CDT [email or web address] - . [facility] POTASSIUM 4.0 3.5 - 5.0 mmol/L 09/25/2017 10:04 AM CDT [email or web address] - . [place] CHLORIDE 88(L) 98 - 107 mmol/L 09/25/2017 10:04 AM T [facility] LABORATORY SERVICES - . [place] CO2 32(H) 22 - 29 mmol/L 09/25/2017 10:04 AM [facility] [employer] - . [place] CALCIUM 9.4 8.6 - 10.2 mg/dL 09/25/2017 10:04 AM [facility] [email or web address] LABORATORY SERVICES - . [facility] BUN 13 6 - 20 mg/dL 09/25/2017 10:04 AM [facility] [email or web address] [facility] - . [place] CREATININE 0.75 0.51 - 0.95 mg/dL 09/25/2017 10:04 AM [facility] [email or web address] [facility]AT[facility] - [facility] GLUCOSE 74 74 - 99 mg/dL 09/25/2017 10:04 AM [facility] [email or web address] LABORATORY [facility] TOTAL PROTEIN 6.5(L) 6.7 - 8.6 g/dL 09/25/2017 10:04 AM [facility] [employer] [facility] ALBUMIN 3.8 3.5 - 5.2 g/dL 09/25/2017 10:04 AM [facility] [employer] [facility] BILIRUBIN TOTAL <0.2(L) 0.3 - 1.2 mg/dL 09/25/2017 10:04 AM [facility] [employer] [facility] ALKALINE PHOSPHATASE 74 35 - 104 U/L 09/25/2017 10:04 AM [facility] [employer] [facility] AST 9 <33 U/L 09/25/2017 10:04 AM [facility] [employer] [facility] ALT 8 <34 U/L 09/25/2017 10:04 AM [facility] [employer] [facility] GFR >60 >=60 mL/min/1.7 3 sq meter 09/25/2017 10:04 AM [facility] [employer] SERVICES - [facility] Comment: eGFR has not been validated for [...] GFR, >60 >=60 mL/min/1.7 3 sq meter 09/25/2017 10:04 AM [employer] LABORATORY SERVICES - . [facility] ANION GAP 11 8 - 16 mmol/L 09/25/2017 10:04 AM CDT [facility] Blood Venipuncture / Unknown 09/25/2017 5:58 AM CDT 09/25/2017 8:25 AM CDT Narrative [facility] - 09/25/2017 10:04 AM CDT Samples containing indocyanine green cause interferences on Total and/or Direct Bilirubin and must not be measured. Scooter Stone MD CHEMISTRY ORDERABLES Final R esult [facility] CLIA# [id number] [place] [address] documented in this encounter Visit Diagnoses Diagnosis Encounter for general adult medical examination without abnormal findings Routine general medical examination at a health care facility documented in this encounter
--- OUTSIDE RECORDS SUMMARY | 2024-05-19 12:53 | XMS_ITS | Encounter Summary ---
Author Organization [employer] Address [address] [place] [address] Care Team Providers Care Director Automotive Name Role Phone Unavailable Primary Care Provider Unavailabl e Encounter Details Date Type Department Care Team (Late st Contact Info) Description 09/29/2017 Lab Requisition [facility] General Laboratory Services [address] [place] [address] Scooter Stone MD [address] [place] [address] Heart disease Social History Tobacco Use Types Packs/Day Years Used Date Smoking Tobacco: Never Assessed Comments Unknown Sex and Gender Information Value Date Recorded Sex Assigned at Not on file Legal Sex Female 5:06 AM CDT Gender Identity Not on file Sexual Orientation Not on file documented as of this encounter Plan of Treatment Not on file documented as of this encounter Visit Diagnoses Diagnosis Heart disease Heart disease, unspecified documented in this encounter
--- OUTSIDE RECORDS SUMMARY | 2024-05-19 12:53 | XMS_ITS | Encounter Summary ---
Author Organization [facility] Address [facility] [place] [address] Care Team Providers Care Glass Mold Repairer Name Role Phone Trenton Gaming MD Primary Care Provider [phone] Reason for Visit * Reason Onset Date Comments Diarrhea 05/13/2024 Encounter Details Date Type Department Care Team (Late st Contact Info) Description 05/13/2024 Telephone [facility] Family & Internal Medicine [facility] [address] [place] [address] Trenton Gaming MD [address] [place] [address] Diarrhea Social History Tobacco Use Types Packs/Day Years Used Date Smoking Tobacco: Former Cigarettes 1 40 0 03/14/1978 - 03/14/2018 Smokeless Tobacco: Never Alcohol Use Standard Drinks/Week Comments Not Currently 0 (1 standard drink = 0.6 oz pur e alcohol) AUDIT-C Answer Date Recorded Q1: How often do you have a drink containing alc ohol? Never 03/14/2020 Average Number of Drinks Not on file 021 Frequency of Binge Drinking Not on file 03/02 PHQ-2 Answer Date Recorded Patient Health Questionnaire-2 Score 1 04/20/2024 Comments No Sex and Gender Information Value Date Recorded Sex Assigned at Female 04/20/2024 12:52 PM TRAFFIC ANALYSIS TECHNICIAN Legal Sex Female 3:16 PM TRAFFIC ANALYSIS TECHNICIAN Gender Identity Female 03/04/2022 5:23 AM TRAFFIC ANALYSIS TECHNICIAN Sexual Orientation Not on file documented as of this encounter Progress Notes * Saige Cadet LPN - 05/19/2024 9:49 AM CDTAddended by: SAIGE CADET on: 05/19/2024 09:49 AM Modules accepted: Orders * Saige Cadet LPN - 05/19/2024 9:45 AM CDT Patient is aware and voiced understanding. She is unsure if she will be able to do the stool panel but states that she will try. Order sent to [facility]. * Trenton Gaming MD - 05/18/2024 1:57 PM CDT She should do a stool culture and then can restart cholestyramine. * Breana Guillermo MA - 05/18/2024 1:19 PM CDT Spoke to patient, she went to [facility] and was given cholestyramine and was told she should only take BID for 3 days. Patient states her symptoms were improving with the cholestyramine, but she was afraid to lock up her stomach and stopped taking it. Patient took an immodium last night and had multiple BM still. * Yadira Sarkar - 05/18/2024 10:43 AM CDT Pt called in asking for Breana to call her back as her sx have not improved. Please advise. * Breana Guillermo MA - 05/13/2024 3:24 PM CDT Patient informed and v/u of recommendations. She will seek further evaluation at ER * David Moran DO - 05/13/2024 3:18 PM CDT These are frequently viral and can actually be worsened by antibiotics. Given severity and duration, recommend urgent care/ER evaluation. * Breana Guillermo MA - 05/13/2024 11:10 AM CDT The patient has the following symptom(s): diarrhea 1-2 times an hour, nausea, vomiting, low grade fever (100.1), chills, patient is unable to eat any food. Symptom(s) Started: Thursday OTC Medications tried: Drinking Gatorade and imodium AD, and an old prescription of Zofran Have you been seen with-in the past 30 days for these same symptoms? No If so, where? Home Covid test: Has not taken at home flu/covid test. Call back #: [phone] Allergies: Allergies Allergen Reactions Bactrim [Sulfamethoxazole-Trimethoprim] Shortness of Breath Gabapentin Dizziness Premarin [Conjugated Estrogens] Hives Albuterol Anxiety JITTERY nebulizer tx only Pharmacy: [facility] * Yadira Sarkar - 05/13/2024 10:36 AM CDT Pt called in asking for abx, would not explain why she needed it asking for call back from someone.Please advise. documented in this encounter Plan of Treatment Scheduled Orders Name Type Priority Associated Diagnoses Orde r Schedule GI PANEL PCR - STOOL Microbiology Routine Diarrhea, unspecified type Acute abdomen Expected: 05/19/2024, Expires: 05/19/2025 documented as of this encounter Visit Diagnoses Diagnosis Diarrhea, unspecified type Acute abdomen Abdominal pain, unspecified site documented in this encounter Additional Health Concerns Assessment Noted Time PHQ-9 Depression Total Score: 5 05/20/19 23 9:46 AM CDT documented as of this encounter Care Teams Glass Mold Repairer Relationship Specialty Start Date End Date Trenton Gaming MD [address] [place] [address] PCP - General INTERNAL MEDICINE 03/14/20 documented as of this encounter
--- OUTSIDE RECORDS SUMMARY | 2024-05-19 12:53 | XMS_ITS | Encounter Summary ---
Author Organization [facility] Address [address] [place] [address] Care Team Providers Care Cattery Operator Name Role Phone Trenton Gaming MD Primary Care Provider Encounter Details Date Type Department Care Team (Late st Contact Info) Description 01/20/2023 [facility] Message [place] [address] [place] [phone] Leif, [facility] Provider mammogram and colonoscopy Social History Tobacco Use Types Packs/Day Years [...] Answer Date Recorded Patient Health Questionnaire-2 Score 3 05/19/2022 Comments No Sex and Gender Information Value Date Recorded Sex Assigned at Female 04/20/2024 12:52 PM AUDIO VISUAL PRODUCTION SPECIALIST Legal Sex Female 3:16 PM AUDIO VISUAL PRODUCTION SPECIALIST Gender Identity Female 03/04/2022 5:23 AM AUDIO VISUAL PRODUCTION SPECIALIST Sexual Orientation Not on file documented as of this encounter Plan of Treatment Not on file documented as of this encounter Visit Diagnoses Not on filedocumented in this encounter Additional Health Concerns Assessment Noted Time PHQ-9 Depression Total Score: 5 05/20/19 23 9:46 AM CDT documented as of this encounter Care Teams Cattery Operator Relationship Specialty Start Date End Date Trenton Gaming MD [address] [place] [address] PCP - General INTERNAL MEDICINE 03/14/20 documented as of this encounter
--- OUTSIDE RECORDS SUMMARY | 2024-05-19 12:53 | XMS_ITS | Clinical Summary ---
Author Organization [facility] Address [address] [place] [address] Phone Care Team Providers Care Hourly Shift Manager Name Role Phone Unavailable Primary Care Provider Unavailabl e Social History Tobacco Use Types Packs/Day Years Used Date Smoking Tobacco: Never Assessed Comments Unknown Sex and Gender Information Value Date Recorded Sex Assigned at Not on file Legal Sex Female 5:06 AM CDT Gender Identity Not on file Sexual Orientation Not on file Plan of Treatment Health Maintenance Due Date Last Done Comments DTAP/TDAP/TD VACCINES (1 - Tdap) 1976 BREAST CANCER SCREENING 1997 COLORECTAL SCREENING 2002 Colorectal Cancer Screening 2002 FIT-DNA Q 3 years 2002 FIT/FOBT Q 1 year 2002 Flex Sig/CT Colonography Q 5 years 2002 PNEUMOCOCCAL VACCINE 50+ YEARS (1 of 1 - PCV) 11/05/19 08 ZOSTER VACCINE (1 of 2) 11/05/2007 OSTEOPOROSIS SCREENING 2022 INFLUENZA VACCINE (#1) 2023 RSV VACCINE (60+ or ) (1 - 1-dose 75+ series) 2032
--- OUTSIDE RECORDS SUMMARY | 2024-05-19 12:53 | XMS_ITS | Continuity of Care Document ---
Author Name Auto Generated, Auto Generated Organization [facility] Support Name Relationship Address Phone Zoey Maya Daughter Unknown Unavailable Coretta Mayer Sister Unknown Unavailable Zainab Maya Financial Responsible Republican [address] [place] [address] + Zainab Maya Self [address] [place] [address] + JohnnieAlfredo Significant Other Unknown Unavailabl e Summary Purpose Consult/Referral Allergies, Adverse Reactions, Alerts Type Description/Agent Code Date Allergy Active Date Allergy Inactivated Date of Last Reaction Adverse Reactions Severity Status Comments Source of Information FDB Medic ation Name Premarin Active Patient History Medications No Known Medications Conditions/Problems Problem/Diagnosis Awareness of Diagnosis Code (ICD-10) Onset Date (Start Date) Resolution Date (End Date) Status Source Comments ABNORMAL WEIGHT GAIN R63.5 04/03/19 Active MD Scooter Stone OTHER ABNORMALITIES OF GAIT AND MOBILITY R26.89 03/20/19 Active MD Scooter Stone MUSCLE WEAKNESS (GENERALIZED) M62.81 03/20/19 Active MD Scooter Stone OTHER CHRONIC PAIN G89.29 03/20/19 Active MD Scooter Stone VITAMIN D DEFICIENCY, UNSPECIFIED E55.9 03/17/19 23 Active MD Scooter Stone GENERALIZED ANXIETY DISORDER F41.1 03/11/19 Active MD Scooter Stone GASTRO-ESOPHAGEAL REFLUX DISEASE WITHOUT ESOPHAGITIS K21.9 03/11/19 Active MD Scooter Stone OBSTRUCTIVE SLEEP APNEA (ADULT) (PEDIATRIC) G47.33 03/11/19 Active MD Scooter Stone HYPERLIPIDEMIA, UNSPECIFIED E78.5 03/11/19 23 03/24/2022 Resolved MD Scooter Stone CHRONIC DIASTOLIC (CONGESTIVE) HEART FAILURE I50.32 03/11/19 Active MD Scooter Stone SOLITARY PULMONARY NODULE R91.1 03/11/19 23 Active MD Scooter Stone PRIMARY INSOMNIA F51.01 03/11/19 23 Active MD Scooter Stone MIXED HYPERLIPIDEMIA E78.2 03/11/19 23 Active MD Scooter Stone ACUTE AND CHRONIC RESPIRATORY FAILURE WITH HYPOXIA J96.21 03/05/19 23 Active MD Scooter Stone ACUTE AND CHRONIC RESPIRATORY FAILURE WITH HYPERCAPNIA J96.22 03/05/19 23 Active MD Scooter Stone CHRONIC OBSTRUCTIVE PULMONARY DISEASE WITH (ACUTE) EXACERBATION J44.1 03/05/19 23 Active MD Scooter Stone ENCOUNTER FOR SURGICAL AFTERCARE FOLLOWING SURGERY ON THE DIGESTIVE SYSTEM Z48.815 09/30/19 18 03/13/2022 Resolved MD Scooter Stone ACQUIRED ABSENCE OF OTHER SPECIFIED PARTS OF DIGESTIVE TRACT Z90.49 09/30/19 18 Active MD Scooter Stone HYPOMAGNESEMIA E83.42 09/30/19 18 03/13/2022 Resolved MD Scooetr Stone CONSTIPATION, UNSPECIFIED K59.00 09/30/19 18 Active MD Scooter Stone PERSONAL HISTORY OF PNEUMONIA (RECURRENT) Z87.01 09/30/19 18 Active MD Scooter Stone CALCULUS OF GALLBLADDER WITH ACUTE CHOLECYSTITIS WITHOUT OBSTRUCTION K80.00 09/29/19 18 03/13/2022 Resolved MD Scooter Stone PULMONARY HYPERTENSION, UNSPECIFIED I27.20 09/29/19 18 Active MD Scooter Stone ACUTE AND CHRONIC RESPIRATORY FAILURE, UNSPECIFIED WHETHER WITH HYPOXIA OR HYPERCAPNIA J96.20 09/23/19 18 Active MD Scooter Stone ELEVATED WHITE BLOOD CELL COUNT, UNSPECIFIED D72.829 09/01/19 18 03/13/2022 Resolved MD Scooter Stone CHRONIC RESPIRATORY FAILURE WITH HYPERCAPNIA J96.12 09/01/19 18 Active MD Scooter Stone HYPERTENSIVE HEART DISEASE WITH HEART FAILURE I11.0 09/01/19 18 Active MD Scooter Stone UNSPECIFIED DIASTOLIC (CONGESTIVE) HEART FAILURE I50.30 09/01/19 18 03/13/2022 Resolved MD Scooter Stone HYPO-OSMOLALITY AND HYPONATREMIA E87.1 09/01/19 18 Active MD Scooter Stone ANEMIA IN OTHER CHRONIC DISEASES CLASSIFIED ELSEWHERE D63.8 09/01/19 18 Active MD Scooter Stone PNEUMONIA, UNSPECIFIED ORGANISM J18.9 09/01/19 18 03/13/2022 Resolved MD Scooter Stone DEPENDENCE ON SUPPLEMENTAL OXYGEN Z99.81 08/25/19 18 Active MD Scooter Stone UMBILICAL HERNIA WITHOUT OBSTRUCTION OR GANGRENE K42.9 08/25/19 18 Active MD Scooter Stone PERSONAL HISTORY OF NICOTINE DEPENDENCE Z87.891 08/25/19 18 Active MD Scooter Stone ACUTE CHOLECYSTITIS K81.0 08/20/19 18 03/13/2022 Resolved MD Scooter Stone URINARY TRACT INFECTION, SITE NOT SPECIFIED N39.0 08/20/19 18 03/13/2022 Resolved MD Scooter Stone Procedures No Known Procedures
--- OUTSIDE RECORDS SUMMARY | 2024-05-19 12:53 | XMS_ITS | Encounter Summary ---
Author Organization [email or web address] Address [address] [place] [address] Care Team Providers Care Client Relation Specialist Name Role Phone Unavailable Primary Care Provider Unavailabl e Encounter Details Date Type Department Care Team (Late st Contact Info) Description 09/11/2017 Lab Requisition [facility] [place] [address] [place] [address] Scooter Stone MD [address] [place] [address] Encounter for general adult medical [...] Date/Time Associated Diagnosis Comments CBC WITH DIFFERENTIAL Routine 09/11/2017 6:36 AM CDT Encounter for general adult medical examination without abnormal findings documented in this encounter Results * (ABNORMAL) CBC WITH DIFFERENTIAL (09/11/2017 6:36 AM CDT) WBC 9.3 4.0 - 9.8 K/uL 09/11/2017 12:40 PM CDT [facility] - [facility] RBC 3.17(L) 3.90 - 4.90 M/uL 09/11/2017 12:40 PM CDT [facility] - [facility] HEMOGLOBIN 9.5(L) 11.8 - 14.8 g/dL 09/11/2017 12:40 PM CDT [facility] - [facility] HEMATOCRIT 31.5(L) 35.5 - 44.0 % 09/11/2017 12:40 PM CDT [facility] - [facility] MCV 99.4(H) 82.0 - 99.0 fL 09/11/2017 12:40 PM CDT [facility] MCH 30.0 27.2 - 32.6 pg 09/11/2017 12:40 PM CDT [facility] MCHC 30.2(L) 31.5 - 35.5 g/dL 09/11/2017 12:40 PM CDT [facility] - . [facility] RDW 13.8 11.5 - 14.5 % 09/11/2017 12:40 PM CDT [facility] - [facility] RDW-STDEV 50.4(H) 37.1 - 48.7 fL 09/11/2017 12:40 PM CDT [facility] - [facility] PLATELETS 532(H) 140 - 350 K/uL 09/11/2017 12:40 PM CDT [facility] MPV 9.7 9.3 - 12.4 fL 09/11/2017 12:40 PM CDT [facility] - . [facility] NEUTROPHILS 63 % 09/11/2017 12:40 PM CDT [facility] - [facility] LYMPHOCYTES 22 % 09/11/2017 12:40 PM CDT [facility] - . [facility] MONOCYTES 9 % 09/11/2017 12:40 PM CDT [facility] - . [facility] EOSINOPHILS 4 % 09/11/2017 12:40 PM CDT [facility] - . [facility] BASOPHILS 1 % 09/11/2017 12:40 PM CDT [facility] - . [facility] IMMATURE GRANULOCYTES 2 % 09/11/2017 12:40 PM CDT [facility] - . [facility] Comment:IG (Immature Granulo cyte) count includes Metamyelocytes, Myelocytes, and Promyelocytes NEUTROPHIL ABSOLUTE 5.83 1.90 - 7.00 K/uL 09/11/2017 12:40 PM CDT [facility] - . [facility] LYMPHOCYTE ABSOLUTE 2.07 0.70 - 4.50 K/uL 09/11/2017 12:40 PM CDT [facility] - . [facility] MONOCYTE ABSOLUTE 0.80 0.10 - 1.30 K/uL 09/11/2017 12:40 PM CDT [facility] - . [facility] EOSINOPHIL ABSOLUTE 0.35 0.00 - 0.70 K/uL 09/11/2017 12:40 PM CDT [facility] - . [facility] BASOPHILS ABSOLUTE 0.05 0.00 - 0.20 K/uL 09/11/2017 12:40 PM CDT [facility] - . [facility] IMMATURE GRANULOCYTES ABSOLUTE 0.15(H) 0.00 - 0.03 K/uL 09/11/2017 12:40 PM CDT [facility] Blood Venipuncture / Unknown 09/11/2017 6:36 AM CDT 09/11/2017 11:02 AM CDT Scooter Stone MD HEMATOLOGY ORDERABLES Final Result [facility] [id number] [address] [place] [address] documented in this encounter Visit Diagnoses Diagnosis Encounter for general adult medical examination without abnormal findings Routine general medical examination at a health care facility documented in this encounter
--- OUTSIDE RECORDS SUMMARY | 2024-05-19 12:53 | XMS_ITS | Referral Summary ---
Author Organization [facility] [address] Address [address] [place] [address] Care Team Providers Care Breakdown Mill Operator Name Role Phone Trenton Gaming MD Unavailable [phone] Trenton Gaming MD Primary Care Provider [phone] Dinorah Cummings MD Unavailable [phone] Nikhil Yen NP Unavailable Raudel Mota MD Unavailable Cheikh Scanlon MD PhD Unavailable Terri Perez MD Unavailable [phone] Varun Rios DO Unavailable [phone] Encounters Date Type Department Care Team Description 05/16/2024 Telephone [facility] Pulmonary [place] [address] [facility] [address] [place] [address] Raudel Mota MD Request For Order(s) 05/12/2024 Telephone [facility] Medical Office Building 2 Radiation Oncology [address] [place] [address] Saige Sheridan 03/22/2024 Telephone [facility] [place] [address] [place] [address] [address] [place] [address] Raudel Mota MD 03/22/2024 2:30 PM RN PROCEDURES Office Visit [facility] Pulmonary [address] [phone] Raudel Mota MD Simple chronic bronchitis (HCC) (Primary Dx); Chronic respiratory failure with hypoxia and hypercapnia (HCC); Pulmonary nodule; Diastolic congestive heart failure, unspecified HF chronicity (HCC) from Last 3 Months Allergies Active Allergy Reactions Criticality Noted Date [...] 3L with activity 4L at HS 04/12/19 23 Active ferrous sulfate 325 mg (65 mg of elemental iron) tabletIndications: Iron Deficiency Anemia Take 1 tablet (325 mg total) by mouth nightly Active potassium chloride ER (KLOR-CON) 20 mEq CR tabletIndications: supplement Take 1 tablet (20 mEq total) by mouth daily rx [id number] Active cholecalciferol (VITAMIN D-3) 2000 unit tabletIndications: [...] mcg total) by mouth daily 30 tablet 07/13/19 24 Active fluticasone-umecli din-vilanter (Trelegy Ellipta) [...] disease) Shortness of breath Hypercapnemia Pulmonary nodule Immunizations Immunization Administration Dates Next Due Pneumococcal Polysaccharide PPV23 03/14/2020 Social History Tobacco Use Types Packs/Day Years Used Date Smoking Tobacco: Former Cigarettes 1 45 1 2017 Smokeless Tobacco: Never Tobacco Cessation:Counseling Given: Not [...] materials from doctor or pharmacy Never 07/21/2023 [facility] Utilities Answer Date Recorded In the past 12 months has th e electric, gas, oil, or water [employer] threatened to shut off services in your [...] often do you attend chur ch or cheondoism services? Never 05/12/2023 Do you belong to any clubs o r organizations such as bahai groups, unions, fraternal or athletic groups, or [...] place to sleep or slept in a skilled nursing (including now)? No 05/12/2023 Personal Safety Answer Date Recorded Have you ever been in or are you currently in a harmful physical or emotional relationship or is someone making you feel afraid or unsafe? Denies 08/25/2023 Comments No Sex and Gender Information Value Date Recorded Sex Assigned at Not on file Legal Sex Female 1:21 AM RN PROCEDURES Gender Identity Not on file Sexual Orientation Not on file Last Filed Vital Signs Vital Sign Reading Time Taken Comments Blood Pressure 122/64 03/22/2024 2:31 PM RN PROCEDURES Pulse 102 03/22/2024 2:31 PM RN PROCEDURES Temperature 36.6 C (97.8 F) 03/22/2024 2:31 PM RN PROCEDURES Respiratory Rate 18 03/22/2024 2:31 PM RN PROCEDURES Oxygen Saturation 99% 03/22/2024 2:31 PM RN PROCEDURES 2L 02 Inhaled Oxygen Concentration - - Weight 60.3 kg (133 lb) 03/22/2024 2:31 PM RN PROCEDURES Height 162.6 cm (5' 4 ) 03/22/2024 2:31 PM RN PROCEDURES Body Mass Index 22.83 03/22/2024 2:31 PM RN PROCEDURES Plan of Treatment Not on file Insurance MEDICARE [employer] [facility] MEDIC[facility] Member Subscriber Plan / Payer (Ef fective 2011-) Name:Maya Zainab Shana Member ID:[id number] Relation to Subscriber:Self Name:Zainab Maya Subscriber ID:[id number] Payer ID:[id number] Group ID:Not on file Type:MEDICARE TRADITIONAL Address: [address] MEDIC[address] RAILROAD Member Subscriber Plan / Payer ( fective 2011-) Name:Zainab Maya Member ID:[id number] Relation to Subscriber:Self Name:Zainab Maya Subscriber ID:[id number] Payer ID:[id number] Group ID:Not on file Type:MEDICARE TRADITIONAL Address: [address] Advance Directives For more information, please contact: [phone] Documents on File Type Date Recorded Patient Dog Barber Expl anation ADVANCE DIRECTIVE 04/10/2022 11:29 AM [...] 4:04 PM 11/19/2022 7:36 PM Care Teams Breakdown Mill Operator Relationship Specialty Start Date End Date Trenton Gaming MD [address] [place] [address] PCP - General Internal Medicine 04/03/22 Trenton Gaming MD [address] [place] [address] Referring Physician Internal Medicine 03/14/22 Dinorah Cummings MD [address] [place] [address] Referring Physician Neurology 06/26/22 Nikhil Yen NP [address] [place] [address] Orthodontist Assistant Nurse Practitioner 06/26/22 Raudel Mota MD [address] [place] [address] Surgeon Pulmonary Disease 06/26/22 Cheikh Scanlon MD PhD [address] [place] [address] MEDICAL ONCOLOGY, [facility] [address] [place] [address] Medical Oncologist/Nurse Aide Evaluator Medical Oncology 06/26/22 Terri Perez MD [address] [place] [address] [address] [place] [address] Radiation Oncologist Radiation Oncology 09/22/23 Varun Rios DO [address] [facility] [address] [place] [address] Surgeon Surgery 10/05/23
--- OUTSIDE RECORDS SUMMARY | 2024-05-19 12:53 | XMS_ITS | Encounter Summary ---
Author Organization [employer] Address [address] [place] [address] Care Team Providers Care Superintendent Quarry Name Role Phone Unavailable Primary Care Provider Unavailabl e Encounter Details Date Type Department Care Team (Late st Contact Info) Description 09/04/2017 Lab Requisition [facility] [address] [place] [address] Scooter Stone MD [address] [place] [address] Encounter for general adult medical [...] Associated Diagnosis Comments CBC WITH DIFFERENTIAL Routine 09/04/2017 6:03 AM CDT Encounter for general adult medical examination without abnormal findings MAGNESIUM LEVEL Routine 09/04/2017 6:03 AM CDT Encounter for general adult medical examination without abnormal findings COMPREHENSIVE METABOLIC PANEL Routine 09/04/2017 6:03 AM CDT Encounter for general adult medical examination without abnormal findings documented in this encounter Results * MAGNESIUM LEVEL (09/04/2017 6:03 AM CDT) MAGNESIUM 2.1 1.6 - 2.6 mg/dL 09/04/2017 10:27 AM CDT [facility] Blood Venipuncture / Unknown 09/04/2017 6:03 AM CDT 09/04/2017 8:42 AM CDT Scooter Stone MD CHEMISTRY ORDERABLES Final R esult [facility] SERVICES - . [facility]# [id number] [address] [place] [address] * (ABNORMAL) COMPREHENSIVE METABOLIC PANEL (09/04/2017 6:03 AM CDT) SODIUM 135(L) 136 - 145 mmol/L 09/04/2017 10:27 AM [facility] POTASSIUM 3.8 3.5 - 5.0 mmol/L 09/04/2017 10:27 AM [facility] CHLORIDE 86(L) 98 - 107 mmol/L 09/04/2017 10:27 AM [facility] CO2 36(H) 22 - 29 mmol/L 09/04/2017 10:27 AM [facility] CALCIUM 9.7 8.6 - 10.2 mg/dL 09/04/2017 10:27 AM [facility] BUN 10 6 - 20 mg/dL 09/04/2017 10:27 AM [facility] CREATININE 0.69 0.51 - 0.95 mg/dL 09/04/2017 10:27 AM [facility] GLUCOSE 74 74 - 99 mg/dL 09/04/2017 10:27 AM [facility] TOTAL PROTEIN 6.7 6.7 - 8.6 g/dL 09/04/2017 10:27 AM [facility] - [facility] ALBUMIN 3.8 3.5 - 5.2 g/dL 09/04/2017 10:27 AM T [facility] BILIRUBIN TOTAL 0.2(L) 0.3 - 1.2 mg/dL 09/04/2017 10:27 AM T [facility] ALKALINE PHOSPHATASE 71 35 - 104 U/L 09/04/2017 10:27 AM T [facility] AST 19 <33 U/L 09/04/2017 10:27 AM [facility] ALT 25 <34 U/L 09/04/2017 10:27 AM [facility] GFR >60 >=60 mL/min/1.7 3 sq meter 09/04/2017 10:27 AM [facility] Comment: eGFR has not been validated [...] GFR, >60 >=60 mL/min/1.7 3 sq meter 09/04/2017 10:27 AM [facility] ANION GAP 13 8 - 16 mmol/L 09/04/2017 10:27 AM [facility] Blood Venipuncture / Unknown 09/04/2017 6:03 AM CDT 09/04/2017 8:42 AM T [facility] - 09/04/2017 10:27 AM CDT Samples containing indocyanine green cause interferences on Total and/or Direct Bilirubin and must not be measured. Scooter Stone MD CHEMISTRY ORDERABLES Final R [id number] 5 SStan BANNER MD [facility] [place] [address] * (ABNORMAL) CBC WITH DIFFERENTIAL (09/04/2017 6:03 AM CDT) Pathologist [facility] WBC 11.2(H) 4.0 - 9.8 K/uL 09/04/2017 9:56 AM [facility] RBC 3.23(L) 3.90 - 4.90 M/uL 09/04/2017 9:56 AM CDT [facility] - [facility] HEMOGLOBIN 9.5(L) 11.8 - 14.8 g/dL 09/04/2017 9:56 AM CDT [facility] - [facility] HEMATOCRIT 31.6(L) 35.5 - 44.0 % 09/04/2017 9:56 AM CDT [facility] - . [facility] MCV 97.8 82.0 - 99.0 fL 09/04/2017 9:56 AM CDT [facility] - . [facility] MCH 29.4 27.2 - 32.6 pg 09/04/2017 9:56 AM CDT [facility] - [facility] MCHC 30.1(L) 31.5 - 35.5 g/dL 09/04/2017 9:56 AM CDT [facility] - . [facility] RDW 13.7 11.5 - 14.5 % 09/04/2017 9:56 AM [facility] - [facility] RDW-STDEV 48.9(H) 37.1 - 48.7 fL 09/04/2017 9:56 AM CDT [facility] - [facility] PLATELETS 531(H) 140 - 350 K/uL 09/04/2017 9:56 AM CDT [facility] - . [facility] MPV 9.8 9.3 - 12.4 fL 09/04/2017 9:56 AM CDT [facility] - [facility] NEUTROPHILS 57 % 09/04/2017 9:56 AM [facility] LYMPHOCYTES 25 % 09/04/2017 9:56 AM CDT [facility] MONOCYTES 12 % 09/04/2017 9:56 AM CDT [facility] EOSINOPHILS 2 % 09/04/2017 9:56 AM CDT [facility] BASOPHILS 0 % 09/04/2017 9:56 AM CDT [facility] IMMATURE GRANULOCYTES 3 % 09/04/2017 9:56 AM CDT [facility] - [facility] Comment:IG (Immature Granulo cyte) count includes Metamyelocytes, Myelocytes, and Promyelocytes NEUTROPHIL ABSOLUTE 6.37 1.90 - 7.00 K/uL 09/04/2017 9:56 AM CDT [facility] - [facility] LYMPHOCYTE ABSOLUTE 2.83 0.70 - 4.50 K/uL 09/04/2017 9:56 AM CDT [facility] MONOCYTE ABSOLUTE 1.35(H) 0.10 - 1.30 K/uL 09/04/2017 9:56 AM CDT [facility] - [facility] EOSINOPHIL ABSOLUTE 0.26 0.00 - 0.70 K/uL 09/04/2017 9:56 AM CDT [facility] - [facility] BASOPHILS ABSOLUTE 0.04 0.00 - 0.20 K/uL 09/04/2017 9:56 AM CDT [facility] - [facility] IMMATURE GRANULOCYTES ABSOLUTE 0.35(H) 0.00 - 0.03 K/uL 09/04/2017 9:56 AM CDT [facility] Blood Venipuncture / Unknown 09/04/2017 6:03 AM CDT 09/04/2017 8:42 AM CDT Scooter Stone MD HEMATOLOGY ORDERABLES Final Result [facility] [id number] [address] [place] [address] documented in this encounter Visit Diagnoses Diagnosis Encounter for general adult medical examination without abnormal findings Routine general medical examination at a health care facility documented in this encounter
--- OUTSIDE RECORDS SUMMARY | 2024-05-19 12:54 | XMS_ITS ---
Author Organization [facility] Address [address] [address] Care Team Providers Care Secretary Of State Name Role Phone Trenton Gaming Primary Care Provider UnavailSHAHANA Sullivan [phone] Encounters Encounter Location Date Provider Diagnosis [facility] [address] [place] [address] 03/30/2024 SHAHANA FINNEY Plan Of Treatment Next Appt Details Provider Name:SHAHANA FINNEY, 0 05/31/2024 02:15:00 PM, [address] [facility], [place], [address], Progress Notes * RUBY MUÑOZDOB:1955 (68 yo F)Acc No.[id number]:03/30/2024 Patient: Juma JANIYARemberto RUBY :1955 A ge:68 Y S ex:Female Address:[address] [place] [id number] * true * Date: Generated for Rebecai jose/Glenda/eTransmitting on: 0 05/19/2024 01:53 PM EDT
--- OUTSIDE RECORDS SUMMARY | 2024-05-19 12:54 | XMS_ITS ---
Author Organization [facility] [address] Address [address] [place] [address] Care Team Providers Care Stone Processing Machine Operator Name Role Phone Trenton Gaming MD Unavailable [phone] Trenton Gaming MD Primary Care Provider Dinorah Cummings MD Unavailable Nikhil Yen NP Unavailable Raudel Mota MD Unavailable Cheikh Scanlon MD PhD Unavailable [phone] Terri Perez MD Unavailable Varun Rios DO Unavailable [phone] Active Problems Patient Care Coordination No te [...] disease) Shortness of breath Hypercapnemia Pulmonary nodule Current Treatment and Therapy Plans No current plan information found. Past Treatment and Therapy Plans No past plan information found. Radiation Treatments * Course [id number]_202207/24/2022 - 08/06/2022 Treatment Period Energy Fraction Dose Fractions Total Dose Plans Planned SBRT [facility] 07/24/2022 - 08/06/2022 1,100 5 / 5,500 Reference Points Delivered [id number]_RUL 07/24/2022 - 08/06/2022 5,500
--- OUTSIDE RECORDS SUMMARY | 2024-05-19 12:54 | XMS_ITS | Encounter Summary ---
Author Organization [facility] Address [address] [place] [address] Care Team Providers Care Cash Posting Specialist Name Role Phone Trenton Gaming MD Primary Care Provider [phone] Encounter Details Date Type Department Care Team (Late st Contact Info) Description 08/27/2022 MyChart Message Enc [facility] Medical Group - [facility] [address] [place] [address] [employer], [facility] Provider Air Quality Message Social History Tobacco Use Types Packs/Day Years [...] Sex Assigned at Female 04/20/2024 12:52 PM MEDICAL CLINIC MANAGER Legal Sex Female 3:16 PM MEDICAL CLINIC MANAGER Gender Identity Female 03/04/2022 5:23 AM MEDICAL CLINIC MANAGER Sexual Orientation Not on file documented as of this encounter Plan of Treatment Not on file documented as of this encounter Visit Diagnoses Not on filedocumented in this encounter Additional Health Concerns Assessment Noted Time PHQ-9 Depression Total Score: 5 05/20/19 23 9:46 AM CDT documented as of this encounter Care Teams Cash Posting Specialist Relationship Specialty Start Date End Date Trenton Gaming MD [address] [place] [id number] PCP - General INTERNAL MEDICINE 03/14/20 documented as of this encounter
--- OUTSIDE RECORDS SUMMARY | 2024-05-19 12:54 | XMS_ITS ---
Author Organization [facility] Address [address] [address] Care Team Providers Care Equipment Operator [employer] Name Role Phone [employer] Primary Care Provider SHAHANA Gill Unavailable [phone] Allergies Allergen (clinical drug ingredient) Drug/Non Drug Allergy documented on EMR Reaction Allergy Type Onset Date Status sulfamethoxazole / trimethoprim Bactrim Unknown Drug Allergy Active estrogens, conjugated (GROUP HOME) Premarin Unknown Drug Allergy Active REASON FOR VISIT 1 month f/u Medications Medication SIG (Take, Route, Frequency, Duration) Notes Start Date End Date Status HYDROcodone-Acetaminophen 7.5-325 MG 1 tablet as needed Orally every 6 hrs for 30 day(s) 03/17/2024 Active Omeprazole 40 MG 1 capsule 30 minutes before morning meal Orally twice a day Active Ondansetron HCl 4 MG 1 tablet Orally alison ry 6-8 hours as needed for nausea Active Potassium Chloride ER 20 MEQ TAKE 1 TABLET BY MOUTH EVERY DAY Oral Active Furosemide 20 MG 1 tablet Oral Once a day for 30 Days Active Naloxone HCl 4 MG/0.1ML CALL 911. SPRAY CONTENTS OF ONE SPRAYER INTO ONE NOSTRIL. REPEAT IN 2 TO 3 MINUTES IF SYMPTOMS OF OPIOD EMERGENCY Nasal Active traZODone HCl 100 MG 1 tablet at bedtime Orally Once a day for 30 day(s) 03/10/2024 Active Atorvastatin Calcium 20 MG 1 tablet Oral Once a day for 90 Days Active Albuterol Sulfate HFA 108 (90 Base) MCG/ACT INHALE 1 TO 2 PUFFS BY MOUTH EVERY 4 TO 6 HOURS NEEDED FOR DIFFICULT BREATHING Inhalation Active Trelegy Ellipta 100-62.5-25 MCG/ACT INHALE 1 PUFF BY MOUTH DAILY. RINSE MOUTH AND SPIT AFTER EACH USE Inhalation Active Ibuprofen 600 MG 1 tablet with food o r milk as needed Orally Three times a day Not-Taking Roflumilast 500 MCG Oral Active Sucralfate 1 GM Oral Not- Taking Nitrofurantoin Monohyd Macro 100 MG Oral for 10 Days Active FeroSul 325 (65 Fe) MG TAKE 1 TABLET BY MOUTH DAILY WITH BREAKFAST Oral daily for 30 Days Active traMADol HCl 50 MG 1 tablet as needed Orally 3 times a day 08/27/2023 Not-Taking Fluconazole 150 MG 1 tablet Orally terrie y for 1 day(s) 03/10/2024 Not-Taking Baclofen 10 MG 1 tablet as needed Orally Twice a day for 30 days Not-Taking Social History Tobacco Use: Social History Observation Description Date Details (start date - stop date) Former Smoker NA - NA Tobacco Use/Smoking Question Answer Notes Are you a former smoker Vital Signs Oximetry 98 % 05/03/2024 Heart Rate 95 /min 05/03/2024 Blood pressure systolic 96 mm Hg 05/04/19 25 Blood pressure diastolic 60 mm Hg 025 Temperature 97.6 degrees Fahrenheit 05/04/19 25 Respiratory Rate 16 /min 05/03/2024 Encounters Encounter Location Date Provider Diagnosis [facility] [address] [address] 05/03/2024 SHAHANA FINNEY COPD, severe J44.9 ; Sciatica, right side M54.31 and Encounter for palliative care Z51.5 Assessments Encounter Date Diagnosis (ICD Code) Assessment Notes Treatment Notes Treatment Clinical Notes Section Notes 05/03/2024 COPD, severe (ICD-10 - J44.9) 05/03/2024 Sciatica, right side (ICD-10 - M54.31) May continue to use baclofen as needed for right leg pain related to sciatica. She can also continue narco that she has. Discussed with patient the importance of following up with her primary care provider as this is a new problem and additional work up is needed.Discussed stretches specifically for sciatic paint 05/03/2024 Encounter for palliative care (ICD-10 - Z51.5) Patient is alert and oriented and able to make her own medical decisions. She is choosing palliative care for COPD. Nurse practitioner to monitor for decline transition to hospice appropriate. Patient is not a candidate for hospice at this time. Plan Of Treatment Medication Medication Name Sig Start Date Stop Date Notes Albuterol Sulfate HFA 108 (9 0 Base) MCG/ACT INHALE 1 TO 2 PUFFS BY MOUTH EVERY 4 TO 6 HOURS NEEDED FOR DIFFICULT BREATHING Inhalation Trelegy Ellipta 100-62.5-25 MCG/ACT INHALE 1 PUFF BY MOUTH DAILY. RINSE MOUTH AND SPIT AFTER EACH USE Inhalation Roflumilast 500 MCG Oral Treatment Notes Assessment Notes Sciatica, right side May continue to use baclofen as needed for right leg pain related to sciatica. She can also continue narco that she has. Discussed with patient the importance of following up with her primary care provider as this is a new problem and additional work up is needed.Discussed stretches specifically for sciatic paint Next Appt Details Follow Up: 4 Weeks, Reason: COPD Provider Name:SHAHANA FINNEY, Murali 05/31/2024 02:15:00 PM, [address], [place], [address], Progress Notes * RUBY MUÑOZDOB:1955 (68 yo F)Acc No.[id number]:05/03/2024 Progress Notes Patient: RUBY ADAMS Provider: Marylu FINNEY APN :1955 A ge:68 Y S ex:Female Date:05/03/2024 Address:[address] [place], [place] [id number] Pcp:[employer] Subjective: * Chief Complaints: * 1 month f/u * HPI: D epression Screening: PHQ-2 (2015 Edition) L ittle interest or pleasure in doing things? S everal days, F eeling down, depressed, or hopeless? S everal days, T otal Score 2 . P alliative Care: Follow Up Visit H ome, follow up visit for 68 year-old white female presenting for follow up palliative care visit. C OPD: under the care of library supervisor. Currently on continuous 02@ 2L. She is to go up to 3L with activity but rarely does due to the area of the house where her concentrator is. She is on a maintenance inhaler and oral medication for her COPD. She has shortness of breath with exertion but denies any changes in status since last visit. S ciatica: since our last visit she was seen by her primary care provider and has taken another round of steroids that was given to her by previous MEDICAL TECHNOLOGIST CHIEF. She states that this did help for sometime but pain returned but not as bad. When pain was lessened she attempted to do more stretches than she was previously able to do. She does report that the pain is not as intense and she is able to move better at this time. She was instructed by her PCP to let him know is pain returned so that she could be referred for possible injections; this is per her report. Pain is in right hip and down right leg to calf. She was given narcotics and baclofen by previous MEDICAL TECHNOLOGIST CHIEF that she rarely uses. She declined physical therapy stating that she has had this in the past for strengthening and just needs to do the exercises. . * ROS: G eneral/Constitutional: Patient e ndorses fatigue. O phthalmologic: Patient E ndorses, change in vision. E NT: Patient D enies, decreased hearing, difficulty swallowing. . R espiratory: Patient D enies, chest pain. Endorses, shortness of breath with min exertion. C ardiovascular: Patient D enies, chest pain, fluid accumulation in the legs.. G astrointestinal: Patient D enies nausea, constipation, diarrhea. G enitourinary: Patient E ndorses urge incontinence when going from sitting to standing or laying to standing. M usculoskeletal: Patient E ndorses, joint stiffness, weakness, pain in right hip and leg. S kin: Patient D enies, skin lesion(s). N eurologic: Patient E ndorses, tingling/numbness in hands, feet. ? * Medical History: * Surgical History: c holecystectomy hysterectomy Elbow surgery * Hospitalization/Major Diagno stic Procedure: * Family History: S pouse: . F ather: , COPD. M other: , COPD. LIVES WITH S/O MUÑOZ. * Social History: T obacco Use: T obacco Use/Smoking A re you a f ormer smoker. S creening Not Performed R dakota: Nonsmoker . * Medications: T akingtraZODone HCl 100 MG Tablet 1 tablet at bedtime Orally Once a day Naloxone HCl 4 MG/0.1ML Liquid CALL 911. SPRAY CONTENTS OF ONE SPRAYER INTO ONE NOSTRIL. REPEAT IN 2 TO 3 MINUTES IF SYMPTOMS OF OPIOD EMERGENCY Nasal Atorvastatin Calcium 20 MG Tablet 1 tablet Oral Once a day Ondansetron HCl 4 MG Tablet 1 tablet Orally every 6-8 hours as needed for nausea Omeprazole 40 MG Capsule Delayed Release 1 capsule 30 minutes before morning meal Orally twice a day Furosemide 20 MG Tablet 1 tablet Oral Once a day Potassium Chloride ER 20 MEQ Tablet Extended Release TAKE 1 TABLET BY MOUTH EVERY DAY Oral HYDROcodone-Acetaminophen 7.5-325 MG Tablet 1 tablet as needed Orally every 6 hrs Trelegy Ellipta 100-62.5-25 MCG/ACT Aerosol Powder Breath Activated INHALE 1 PUFF BY MOUTH DAILY. RINSE MOUTH AND SPIT AFTER EACH USE Inhalation Roflumilast 500 MCG Tablet Oral Albuterol Sulfate HFA 108 (90 Base) MCG/ACT Aerosol Solution INHALE 1 TO 2 PUFFS BY MOUTH EVERY 4 TO 6 HOURS NEEDED FOR DIFFICULT BREATHING Inhalation FeroSul 325 (65 Fe) MG Tablet TAKE 1 TABLET BY MOUTH DAILY WITH BREAKFAST Oral daily Nitrofurantoin Monohyd Macro 100 MG Capsule Oral Taking traZODone HCl 100 MG Tablet 1 tablet at bedtime Orally Once a day Taking Naloxone HCl 4 MG/0.1ML Liquid CALL 911. SPRAY CONTENTS OF ONE SPRAYER INTO ONE NOSTRIL. REPEAT IN 2 TO 3 MINUTES IF SYMPTOMS OF OPIOD EMERGENCY Nasal Taking Atorvastatin Calcium 20 MG Tablet 1 tablet Oral Once a day Taking Ondansetron HCl 4 MG Tablet 1 tablet Orally every 6-8 hours as needed for nausea Taking Omeprazole 40 MG Capsule Delayed Release 1 capsule 30 minutes before morning meal Orally twice a day Taking Furosemide 20 MG Tablet 1 tablet Oral Once a day Taking Potassium Chloride ER 20 MEQ Tablet Extended Release TAKE 1 TABLET BY MOUTH EVERY DAY Oral Taking HYDROcodone-Acetaminophen 7.5-325 MG Tablet 1 tablet as needed Orally every 6 hrs Taking Trelegy Ellipta 100-62.5-25 MCG/ACT Aerosol Powder Breath Activated INHALE 1 PUFF BY MOUTH DAILY. RINSE MOUTH AND SPIT AFTER EACH USE Inhalation Taking Roflumilast 500 MCG Tablet Oral Taking Albuterol Sulfate HFA 108 (90 Base) MCG/ACT Aerosol Solution INHALE 1 TO 2 PUFFS BY MOUTH EVERY 4 TO 6 HOURS NEEDED FOR DIFFICULT BREATHING Inhalation Taking FeroSul 325 (65 Fe) MG Tablet TAKE 1 TABLET BY MOUTH DAILY WITH BREAKFAST Oral daily Taking Nitrofurantoin Monohyd Macro 100 MG Capsule Oral Not-TakingBaclofen 10 MG Tablet 1 tablet as needed Orally Twice a day Fluconazole 150 MG Tablet 1 tablet Orally daily traMADol HCl 50 MG Tablet 1 tablet as needed Orally 3 times a day Sucralfate 1 GM Tablet Oral Ibuprofen 600 MG Tablet 1 tablet with food or milk as needed Orally Three times a day Not-Taking Baclofen 10 MG Tablet 1 tablet as needed Orally Twice a day Not- Taking Fluconazole 150 MG Tablet 1 tablet Orally daily Not-Taking traMADol HCl 50 MG Tablet 1 tablet as needed Orally 3 times a day Not-Taking Sucralfate 1 GM Tablet Oral Not-Taking Ibuprofen 600 MG Tablet 1 tablet with food or milk as needed Orally Three times a day DiscontinuedtraZODone HCl 100 MG Tablet TAKE 1 TABLET BY MOUTH AT BEDTIME Orally bedtime predniSONE 20 MG Tablet 2 tablets Orally Once a day Medication List reviewed and reconciled with the patientDiscontinued traZODone HCl 100 MG Tablet TAKE 1 TABLET BY MOUTH AT BEDTIME Orally bedtime Discontinued predniSONE 20 MG Tablet 2 tablets Orally Once a day Medication List reviewed and reconciled with the patient * Allergies: B actrimPremarinno[Allergies Verified] Objective: * Vitals: I nhaled Oxygen Flow Rate (L/min):2, BP:96/60mm Hg, HR:95/min, RR:16/min, Temp:97.6F, Oxygen sat %:98%, PPS:40%, Pain scale:30-10, PX:>6. * Examination: G eneral Examination: GENERAL APPEARANCE: a lert, well hydrated, in no distress, calm and relaxed. DISTRESS: N one . PSYCH: Oriented, cognitive function intact, cooperative with exam, judgement and insight good. EYES: W NL. CV: r hythm regular, no edema . RESP: d iminished breath sounds throughout, oxygen at 2L via nasal cannula continuous . : D eferred. MUSCULOSKELETAL: G eneralized Weakness, pain in right hip and right leg, no swelling or deformity. SKIN: W NL. NEUROLOGIC: a lert and oriented, , cooperative with exam.? Assessment: * Assessment: 1. C OPD, severe - J44.9 (Primary) 2 . S ciatica, right side - M54.31 3 . E ncounter for palliative care - Z51.5 Plan: * Treatment: 2. S ciatica, right side Notes: May continue to use baclofen as needed for right leg pain related to sciatica. She can also continue narco that she has. Discussed with patient the importance of following up with her primary care provider as this is a new problem and additional work up is needed.Discussed stretches specifically for sciatic paint 3. E ncounter for palliative care Clinical Notes: Patient is alert and oriented and able to make her own medical decisions. She is choosing palliative care for COPD. Nurse practitioner to monitor for decline transition to hospice appropriate. Patient is not a candidate for hospice at this time. * Procedure Codes: G 8734 ELDER MALTX SCR DOC NEG NO F/U RQR * Preventive Medicine: Screenings: F alls Risk S creening: N o falls in the past year, A ssessment: N ot performed, no reason specified, P jeannine of Care: D ocumented Reinforced frequent rest.. Reinforced increasing oxygen flow rate with exertion and use of rotator walker. A dvance Care Planning D ate of last Advance Care Planning: d nr. E lder Maltreatment T ype of tool(s) used E ASI, F indings of Screening N egative. P ain Assessment Follow up?Follow Up plan discussed M ay use baclofen as needed for sciatica pain in right leg. Patient also has [place] PRN.. T obacco Use T obacco Counseling not done N onsmoker. D ementia C aregiver education and support provided N o, R dakota N /a. * Follow Up: 4 Weeks (Reason: COPD) Care Plan: * Problems: * Billing Information: * Visit Code: 1123F ACP Documented - Non-billable. [id number] Subsequent Home Care 1 (20 mins). * Procedure Codes: G8734 ELDER MALTX SCR DOC NEG NO F/U RQR. Care Plan Details* * Sign off status: Completed true * Provider: Marylu FINNEY APN Date: 05/03/2024 Generated for Vicky garcia/Glenda/Kris on: 05/19/2024 01:53 PM EDT History and Physical Notes * HPI (History of Present Illness) Category Sub-Category Detail Notes Category Not es Palliative Care Follow Up Visit Home, follow up visit for 68 year-old white female presenting for follow up palliative care visit. COPD: under the care of library supervisor. Currently on continuous 02@ 2L. She is to go up to 3L with activity but rarely does due to the area of the house where her concentrator is. She is on a maintenance inhaler and oral medication for her COPD. She has shortness of breath with exertion but denies any changes in status since last visit. Sciatica: since our last visit she was seen by her primary care provider and has taken another round of steroids that was given to her by previous MEDICAL TECHNOLOGIST CHIEF. She states that this did help for sometime but pain returned but not as bad. When pain was lessened she attempted to do more stretches than she was previously able to do. She does report that the pain is not as intense and she is able to move better at this time. She was instructed by her PCP to let him know is pain returned so that she could be referred for possible injections; this is per her report. Pain is in right hip and down right leg to calf. She was given narcotics and baclofen by previous MEDICAL TECHNOLOGIST CHIEF that she rarely uses. She declined physical therapy stating that she has had this in the past for strengthening and just needs to do the exercises. Depression Screening PHQ-2 (2015 Edition) Little interest or pleasure in doing things?: Several days Feeling down, depressed, or hopeless?: S everal days Total Score: 2 Examination Category Sub-Category Detail Notes Category Not es General Examination GENERAL APPEARANCE: alert, w ell hydrated, in no distress, calm and relaxed EYES: WNL CV: rhythm regular, no e cynthia RESP: diminished breath so unds throughout, oxygen at 2L via nasal cannula continuous NEUROLOGIC: alert and oriented, , cooperative with exam SKIN: WNL MUSCULOSKELETAL: Generalized Weakness , pain in right hip and right leg, no swelling or deformity PSYCH: Oriented, cognitive function intact, cooperative with exam, judgement and insight good DISTRESS: None : Deferred
--- OUTSIDE RECORDS SUMMARY | 2024-05-19 12:54 | XMS_ITS | Clinical Summary ---
Author Organization [facility] Address [address] [place] [address] Care Team Providers Care Order Builder Name Role Phone Trenton Gaming MD Primary Care Provider [phone] Allergies Active Allergy Reactions Criticality Noted Date Comments Albuterol Anxiety Low 04/04/2022 JITTERY nebulizer tx only Sulfamethoxazole-Trime thoprim Shortness of Breath High 02/04/2021 Gabapentin Dizziness Medium 08/14/2023 Conjugated Estrogens Hives 03/14/2020 Medications TRELEGY 100-62.5-25 MCG/INH AEROSOL POWDER, BREATH ACTIVATED INL 1 PUFF PO D 0 Active DALIRESP 500 MCG Tab Take by mouth daily. 0 Active levalbuterol 0.63 MG/3ML nebulizer solution 0 Active OXYGEN by Nasal route continuous. 2L 02 at rest, 3L on exertion and 5L at bedtime Active BIPAP MACHINE Active Misc. Devices (COMMODE BEDSIDE) MiscIndications :Chronic congestive heart failure, unspecified heart failure type (CMS/HCC HHS/HCC),Chroni c respiratory failure with hypoxia and hypercapnia (CMS/HCC HHS/HCC) Use daily as needed 1 each 3 Active Vitamin D3 (VITAMIN D) 50 mcg tablet Take 1 tablet (50 mcg total) by mouth 3 (three) times a week. Active omeprazole (PRILOSEC) 40 MG capsule Take 1 capsule (40 mg total) by mouth daily. Active HYDROcodone-yehuda taminophen (NORCO) 7.5-325 MG tablet TAKE 1 TABLET BY MOUTH EVERY 4 HOURS NEEDED FOR PAIN Oral for 5 Days 4 Active ondansetron (ZOFRAN) 4 MG tablet 1 tablet Orally every 6-8 hours as needed for nausea Active atorvastatin (LIPITOR) 20 MG tabletIndicatio ns:Hyperlipidem ia TAKE 1 TABLET(20 MG) BY MOUTH EVERY NIGHT AT BEDTIME 90 tablet 1 4 Active potassium chloride CR (KLOR-CON M) 20 MEQ tabletIndicatio ns:Hypokalemia TAKE 1 TABLET BY MOUTH EVERY DAY 90 tablet 1 5 Active furosemide (LASIX) 20 MG tabletIndicatio ns:Chronic congestive heart failure, unspecified heart failure type ([facility] HHS/[facility]) Take 1 tablet (20 mg total) by mouth daily. 30 tablet 5 5 Active albuterol sulfate HFA 108 (90 Base) MCG/ACT inhalerIndicati ons:Pulmonary emphysema, unspecified emphysema type ([facility]) Inhale 2 puffs into the lungs every 6 (six) hours as needed for Wheezing. 18 g 5 5 Active ferrous sulfate, 65 mg elemental, (FEROSUL) 325 (65 FE) MG tabletIndicatio ns:Iron deficiency anemia, unspecified iron deficiency anemia type Take 1 tablet (325 mg total) by mouth daily with breakfast. 30 tablet 5 5 Active traZODone (DESYREL) 100 MG tabletIndicatio ns:Insomnia, unspecified type Take 1 tablet (100 mg total) by mouth nightly at bedtime. 30 tablet 3 5 Active traZODone (DESYREL) 100 MG tabletIndicatio ns:Insomnia, unspecified type TAKE 1 TABLET(100 MG) BY MOUTH EVERY NIGHT 30 tablet 3 3 025 Discontinu ed(Reorder ) ferrous sulfate, 65 mg elemental, (FEROSUL) 325 (65 FE) MG tabletIndicatio ns:Iron deficiency anemia, unspecified iron deficiency anemia type Take 1 tablet (325 mg total) by mouth daily with breakfast. 30 tablet 5 4 025 Discontinu ed(Reorder ) albuterol sulfate HFA 108 (90 Base) MCG/ACT inhaler INHALE 1 TO 2 PUFFS BY MOUTH EVERY 4 TO 6 HOURS NEEDED FOR DIFFICULT BREATHING Inhalation 025 Discontinu ed(Reorder ) pregabalin (LYRICA) 25 MG capsule daily. 4 025 Discontinu ed(Side effects) furosemide (LASIX) 20 MG tabletIndicatio ns:Chronic congestive heart failure, unspecified heart failure type ([facility]) TAKE 1 TABLET(20 MG) BY MOUTH DAILY 30 tablet 5 025 Discontinu ed(Reorder ) nitrofurantoin, macrocrystal-mo nohydrate, (MACROBID) 100 MG capsuleIndicati ons:Acute cystitis without hematuria Take 1 capsule (100 mg total) by mouth 2 (two) times daily for 10 days. 20 capsule 5 025 Active Problems Problem Noted Date Diagnosed Date Pressure injury of right elbow, stage 2 06/05/19 24 Pressure injury of left elbow, stage 3 4 Malignant neoplasm of right lung ([facility]/ C) 06/20/2022 Hypomagnesemia 05/30/2022 Hypercapnia 05/19/2022 Pulmonary nodule 1 cm or greater in diameter Iron deficiency anemia 04/01/2021 Hypokalemia 04/01/2021 CHF (congestive heart failure) ([facility]) 01/28/2021 Chronic respiratory failure with hypoxia and hypercapnia ([facility]) 01/28/2021 Hypertension 01/28/2021 QIANA (obstructive sleep apnea) 01/28/2021 Anemia 01/28/2021 Supplemental oxygen dependent 01/28/2021 Mixed hyperlipidemia 01/28/2021 COPD (chronic obstructive pu lmonary disease) ([facility]) 03/14/2020 GERD (gastroesophageal reflux disease) Umbilical hernia without obstruction and without gangrene 03/14/2020 Resolved Problems Problem Noted Date Diagnosed Date Resolved Date Pneumonia due to COVID-19 virus 04/01/2021 04/17/2022 Encounters Date Type Department Care Team Description 05/13/2024 Telephone [facility] Family & Internal Medicine [address] [phone] Trenton Gaming MD Diarrhea 05/12/2024 Telephone [facility] Internal [address] [phone] Trenton Gaming MD Medication Request 05/11/[address] [phone] Trenton Gaming MD Error 04/29/[address] [phone] Trenton Gaming MD Lab Results 04/20/2024 12:40 PM ADJUSTMENT CLERK Office Visit [address] [phone] Trenton Gaming MD Follow Up; COPD; GERD; CHF; Hypertension; Hyperlipidemia; Obstructive Sleep Apnea ; Anemia; Lung Cancer; Back Pain (Patient c/o back pain radiating down to RT leg. Patient states she was given a steroid by Dr. Shukla. ); Hand (Patient c/o pain and difficulty closing LT hand. ); Urinary Incontinence (Patient is wondering if we can order incontinence supplies); Forms (Patient brought in disability forms for taxes. ); Derm Problem (Patient c/o derm spots on LT upper arm. ) 04/20/2024 Scan [facility] Scanned, [facility] 04/20/2024 - 04/20/2024 11:59 PM ADJUSTMENT CLERK Hospital Encounter [facility] [address] [place] [address] Trenton Gaming MD Discharge Disposition: Home or Self Care (Routine Discharge) 04/20/2024 Travel 04/05/2024 Scan [facility] Scanned, [facility] 03/10/2024 Scan [facility] Scanned, [facility] 02/25/2024 Scan [facility] Scanned, [facility] from Last 3 Months Immunizations Name Administration Dates Next Due Fluzone 6 Months+ Quad (0.5 mL Prefilled Syringe ) 01/28/2021,03/14/2020 Fluzone High Dose - >Age 65 (Prefilled Syringe) 12/02/2022 Influenza Adult (Generic) 12/30/2022 PFIZER COVID-19 ([facility] CAP), MRNA, LNP-S, PF, 30 MCG/0.3 ML EMMETT-SUCROSE, IM 08/22/2021 Pneumococcal (Pneumovax 23) 03/14/2020 Pneumococcal (Prevnar 20) 12/02/2022 Family History Medical History Relation Comments COPD Father COPD Mother COPD Sister 1 Cancer Sister 1 throat cancer Stroke Sister 1 Cancer Sister 2 Stroke Sister 2 COPD Sister 3 COPD Sister 4 Relation Status Comments Father Mother Sister 1 Sister 2 Sister 3 Sister 4 Social History Tobacco Use Types Packs/Day Years Used Date Smoking Tobacco: Former Cigarettes 1 40 0 03/14/1978 - 03/14/2018 Smokeless Tobacco: Never Tobacco Cessation:Counseling Given: Yes Alcohol Use Standard Drinks/Week Comments Not Currently [...] Sex Assigned at Female 04/20/2024 12:52 PM ADJUSTMENT CLERK Legal Sex Female 3:16 PM ADJUSTMENT CLERK Gender Identity Female 03/04/2022 5:23 AM ADJUSTMENT CLERK Sexual Orientation Not on file Last Filed Vital Signs Vital Sign Reading Time Taken Comments Blood Pressure 104/58 04/20/2024 12:52 PM ADJUSTMENT CLERK Pulse 113 04/20/2024 12:52 PM ADJUSTMENT CLERK Temperature 37.1 C (98.8 F) 04/20/2024 12:52 PM ADJUSTMENT CLERK Respiratory Rate 18 04/20/2024 12:5 2 PM ADJUSTMENT CLERK Oxygen Saturation 98% 04/20/2024 12: 52 PM ADJUSTMENT CLERK 2L O2 continous Inhaled Oxygen Concentration - - Weight 59.1 kg (130 lb 3.2 oz) 04/20/2024 12:52 PM ADJUSTMENT CLERK Height 160 cm (5' 3 ) 04/20/2024 12:52 PM ADJUSTMENT CLERK Body Mass Index 23.06 04/20/2024 12:52 PM ADJUSTMENT CLERK Plan of Treatment Health Maintenance Due Date Last Done Comments Colorectal Cancer Screening Colonoscopy (10 Years) 1957 DTaP, Tdap and Td Vaccines (1 - Tdap) 1976 Zoster Vaccines (1 of 2) 11/05/2007 Annual Medicare Wellness Visit 2022 Dexa Scan (General) 04/20/2025 Postpone d from 2022 (Patient Refused) Mammogram Screening 04/20/2025 Postpone d from 1997 (Patient Refused) Pneumococcal Vaccine: 65+ Years Completed 12/02/2022, 03/14/2020 Hepatitis C Completed 09/08/2023, 09/20/2017 COVID-19 Vaccine Completed 11/19/2023, , 05/22/2020, Additional history exists Influenza Adult Completed 11/19/2023, 12/02, 12/02/2022, Additional history exists RSV Immunization or 60+ Years Completed 12/29/2023 PHQ-2 (Physician [place]) Completed 04/20/2024 Meningococcal B Vaccine Aged Out No l onger eligible based on patient's age to complete this topic Meningococcal Vaccine Aged Out No rolf danielle eligible based on patient's age to complete this topic RSV Immunizations Under 20 Months Aged Out No longer eligible based on patient's age to complete this topic Procedures Procedure Name Priority Date/Time Associated Diagnosis Comments URINE BACTERIA CULTURE Routine 04/20/2024 1:45 PM ADJUSTMENT CLERK Leukocytes in urine URINALYSIS AUTO DIP Routine 04/20/2024 Dysuria HEP C SCANNED ORDERS Routine 09/08/2023 from Last 3 Months or Most Recently Relevant to Health Maintenance Results * URINE BACTERIA CULTURE (04/20/2024 1:45 PM ADJUSTMENT CLERK) SPEC DESCRIPTION URINE VOIDED 04/20/2024 1:45 PM ADJUSTMENT CLERK [facility] SPECIAL REQUESTS NO SPECIAL REQUEST 04/20/2024 1:45 PM ADJUSTMENT CLERK [facility] CULTURE RESULT NO GROWTH (< OR = 1,000 CFU/ML) 04/22/2024 10:14 AM ADJUSTMENT CLERK [facility] URINE SPECIMEN FROM URETHRA / Unknown 04/20/2024 1:45 PM ADJUSTMENT CLERK 04/20/2024 8:58 PM ADJUSTMENT CLERK Trenton Gaming MD MICROBIOLOGY - GENERAL ORDERAB LES Final Result [facility] [address] [place] [address], [place] [phone] * (ABNORMAL) URINALYSIS AUTO DIP (04/20/2024) COLOR (U) YELLOW YELLOW [facility] TRANSPARENCY TURBID(A) [facility] GLUCOSE (U) NEGATIVE NEGATIVE MG/DL [facility] BILIRUBIN (U) NEGATIVE NEGATIVE [facility] KETONES MG/DL (U) NEGATIVE NEGATIVE MG/DL [facility] SPECIFIC GRAVITY (U) 1.010 1.001 - 1.035 [facility] BLOOD (U) NEGATIVE NEGATIVE [facility] U PH 6.0 5.0 - 9.0 [facility] PROTEIN (U) NEGATIVE NEGATIVE mg/dL [facility] UROBILINOGEN 0.2 0.2 - 1.0 EU/dL = mg/dL [facility] NITRITES NEGATIVE NEGATIVE MG/DL [facility] LEUKOCYTES (U) TRACE(A) NEGATIVE [facility] URINE SPECIMEN FROM URETHRA / Unknown 04/20/2024 Trenton Gaming MD URINE ORDERABLES Final Result Performing Organization Address [facility] Co de Phone Number [facility] [address] [place] [address], [place] * HEP C SCANNED ORDERS (09/08/2023) us [facility] Scanned SCANNING Final Resu lt [facility] ONBASE from Last 3 Months or Most Recently Relevant to Health Maintenance Insurance [facility] Care Teams Order Builder Relationship Specialty Start Date End Date Trenton Gaming MD [address] [place] [id number] PCP - General INTERNAL MEDICINE 03/14/20
--- OUTSIDE RECORDS SUMMARY | 2024-05-19 12:54 | XMS_ITS ---
Author Organization [facility] Address [address] [address] Care Team Providers Care Ice Cream Van Vendor Name Role Phone [employer] Primary Care Provider SHAHANA Gill Unavailable [phone] Allergies Allergen (clinical drug ingredient) Drug/Non Drug Allergy documented on EMR Reaction Allergy Type Onset Date Status sulfamethoxazole / trimethoprim Bactrim Unknown Drug Allergy Active estrogens, conjugated (FCI) Premarin Unknown Drug Allergy Active REASON FOR VISIT Follow up chronic obstructive pulmonary disease (COPD), Palliative care, Sciatica Medications Medication SIG (Take, Route, Frequency, Duration) Notes Start Date End Date Status FeroSul 325 (65 Fe) MG TAKE 1 TABLET BY MOUTH DAILY WITH BREAKFAST Oral daily for 30 Days Active Albuterol Sulfate HFA 108 (90 Base) MCG/ACT INHALE 1 TO 2 PUFFS BY MOUTH EVERY 4 TO 6 HOURS NEEDED FOR DIFFICULT BREATHING Inhalation Active Trelegy Ellipta 100-62.5-25 MCG/ACT INHALE 1 PUFF BY MOUTH DAILY. RINSE MOUTH AND SPIT AFTER EACH USE Inhalation Active Roflumilast 500 MCG Oral Active Baclofen 10 MG 1 tablet as needed Orally Twice a day for 30 days Active Sucralfate 1 GM Oral Unkn own Ibuprofen 600 MG 1 tablet with food o r milk as needed Orally Three times a day Unknown Fluconazole 150 MG 1 tablet Orally terrie y for 1 day(s) 03/10/2024 Unknown traMADol HCl 50 MG 1 tablet as needed Orally 3 times a day 08/27/2023 Unknown HYDROcodone-Acetaminophen 7.5-325 MG 1 tablet as needed Orally every 6 hrs for 30 day(s) 03/17/2024 Active Furosemide 20 MG 1 tablet Oral Once a day for 30 Days Active Potassium Chloride ER 20 MEQ TAKE 1 TABLET BY MOUTH EVERY DAY Oral Active Ondansetron HCl 4 MG 1 tablet Orally alison ry 6-8 hours as needed for nausea Active Omeprazole 40 MG 1 capsule 30 minutes before morning meal Orally twice a day Active Atorvastatin Calcium 20 MG 1 tablet Oral Once a day for 90 Days Active predniSONE 20 MG 2 tablets Orally Onc e a day for 5 day(s) 03/10/2024 Active traZODone HCl 100 MG 1 tablet at bedtime Orally Once a day for 30 day(s) 03/10/2024 Active Naloxone HCl 4 MG/0.1ML CALL 911. SPRAY CONTENTS OF ONE SPRAYER INTO ONE NOSTRIL. REPEAT IN 2 TO 3 MINUTES IF SYMPTOMS OF OPIOD EMERGENCY Nasal Active traZODone HCl 100 MG TAKE 1 TABLET BY MO UT AT BEDTIME Orally bedtime for 30 days Active Vital Signs Temperature 97.8 degrees Fahrenheit 04/05/19 25 Heart Rate 88 /min 04/05/2024 Oximetry 97 % 04/05/2024 Respiratory Rate 18 /min 04/05/2024 Blood pressure systolic 96 mm Hg 04/05/19 25 Blood pressure diastolic 60 mm Hg 025 Encounters Encounter Location Date Provider Diagnosis [facility] [address] [address] [address] 04/05/2024 SHAHANA FINNEY COPD, severe J44.9 ; Sciatica, right side M54.31 ; Encounter for palliative care Z51.5 and Sleep disturbance G47.9 Assessments Encounter Date Diagnosis (ICD Code) Assessment Notes Treatment Notes Treatment Clinical Notes Section Notes 04/05/2024 COPD, severe (ICD-10 - J44.9) 04/05/2024 Sciatica, right side (ICD-10 - M54.31) May continue to use baclofen as needed for right leg pain related to sciatica. She can also continue narco that she has. Discussed with patient the importance of following up with her primary care provider as this is a new problem and additional work up is needed. She declined a new order for physical therapy 04/05/2024 Encounter for palliative care (ICD-10 - Z51.5) Patient is alert and oriented and able to make her own medical decisions. She is choosing palliative care for COPD. Nurse practitioner to monitor for decline transition to hospice appropriate. Patient is not a candidate for hospice at this time. 04/05/2024 Sleep disturbance (ICD-10 - G47.9) Plan Of Treatment Medication Medication Name Sig Start Date Stop Date Notes FeroSul 325 (65 Fe) MG TAKE 1 TABLET BY MOUTH DAILY WITH BREAKFAST Oral daily for 30 Days Albuterol Sulfate HFA 108 (9 0 Base) MCG/ACT INHALE 1 TO 2 PUFFS BY MOUTH EVERY 4 TO 6 HOURS NEEDED FOR DIFFICULT BREATHING Inhalation Trelegy Ellipta 100-62.5-25 MCG/ACT INHALE 1 PUFF BY MOUTH DAILY. RINSE MOUTH AND SPIT AFTER EACH USE Inhalation Roflumilast 500 MCG Oral Baclofen 10 MG 1 tablet as needed O rally Twice a day for 30 days traZODone HCl 100 MG TAKE 1 TABLET BY [facility] AT BEDTIME Orally bedtime for 30 days Treatment Notes Assessment Notes Sciatica, right side May continue to use baclofen as needed for right leg pain related to sciatica. She can also continue narco that she has. Discussed with patient the importance of following up with her primary care provider as this is a new problem and additional work up is needed. She declined a new order for physical therapy Next Appt Details Follow Up: 4 Weeks, Reason: COPD Provider Name:Murali HARTMAN 05/31/2024 02:15:00 PM, [address] [facility], [place], [address], Progress Notes * RUBY MUÑOZDOB:1955 (68 yo F)Acc No.[id number]:04/05/2024 Progress Notes Patient: Juma JANIYARUBY Sr Provider: Marylu FINNEY APN :1955 A ge:68 Y S ex:Female Date:04/05/2024 Address:[address] [place], [place] [id number] Pcp:[employer] Subjective: * Chief Complaints: * F ollow up chronic obstructive pulmonary disease (COPD)Palliative careSciatica * HPI: D epression Screening: PHQ-2 (2015 Edition) L ittle interest or pleasure in doing things? S everal days, F eeling down, depressed, or hopeless? S everal days, T otal Score 2 . P alliative Care: Follow Up Visit H ome, follow up visit for 68 year-old white female presenting for follow up palliative care visit and transition of care to new nurse practitioner. C OPD: under the care of histologist. Currently on continuous 02@ 2L. She is to go up to 3L with activity but rarely does due to the area of the house where her concentrator is. She is on a maintenance inhaler and oral medication for her COPD. S ciatica: this has been an issue for about 2-3 months. Pain is in right hip and down right leg to calf. She has been taking narco and baclofen for the pain prescribed by previous provider. She states that the muscle relaxer has helped with calf pain. Pain gets down to 3/10 in right hip with pain medication. She takes 1-2 tabs of norco on average daily. She does state that on some days pain is up to 10/10 and she is not able to function well. She has not had any follow up with her PCP for this nor has she had any imaging. She has also taken a course of steroids that she says has helped in the past for a short period of time. She has another burst that she plans to take that was given to her by the previous provider. She is aware that the steroid is a temporary relief and not addressing the root cause of the issues. She declined physical therapy stating that she has had this in the past for strengthening and just needs to do the exercises. . A dvance care planning G oals of care discussion with patient and significant other. POLST form completed and updated in chart. Discussed for 40 minutes. Patient discussed desire to have CPR but does not want intubation. We discussed that with this POLST form and not being a DNR intubation was an option. We discussed what this meant and she was ok with having this as an option but I don't want to be on a machine if there is no hope . I discussed with her that that this is something that she should discuss with her family. She and her significant other verbalized understanding. . * ROS: G eneral/Constitutional: Patient e [...] Elbow surgery * Hospitalization/Major Diagno stic Procedure: C OPD exacerbation 04/25Multiple hospitalizations for COPD exacerbations * Medications: T akingpredniSONE 20 MG Tablet 2 tablets Orally Once a day traZODone HCl 100 MG Tablet 1 tablet at bedtime Orally Once a day FeroSul 325 (65 Fe) MG Tablet TAKE 1 TABLET BY MOUTH DAILY WITH BREAKFAST Oral daily Trelegy Ellipta 100-62.5-25 MCG/ACT Aerosol Powder Breath Activated INHALE 1 PUFF BY MOUTH DAILY. RINSE MOUTH AND SPIT AFTER EACH USE Inhalation Roflumilast 500 MCG Tablet Oral Albuterol Sulfate HFA 108 (90 Base) MCG/ACT Aerosol Solution INHALE 1 TO 2 PUFFS BY MOUTH EVERY 4 TO 6 HOURS NEEDED FOR DIFFICULT BREATHING Inhalation traZODone HCl 100 MG Tablet TAKE 1 TABLET BY MOUTH AT BEDTIME Orally bedtime Naloxone HCl 4 MG/0.1ML Liquid CALL 911. [...] 1 TABLET BY MOUTH EVERY DAY Oral Baclofen 10 MG Tablet 1 tablet as needed Orally Twice a day HYDROcodone-Acetaminophen 7.5-325 MG Tablet 1 tablet as needed Orally every 6 hrs Taking predniSONE 20 MG Tablet 2 tablets Orally Once a day Taking traZODone HCl 100 MG Tablet 1 tablet at bedtime Orally Once a day Taking FeroSul 325 (65 Fe) MG Tablet TAKE 1 TABLET BY MOUTH DAILY WITH BREAKFAST Oral daily Taking Trelegy Ellipta 100-62.5-25 MCG/ACT Aerosol Powder Breath Activated INHALE 1 PUFF BY MOUTH DAILY. RINSE MOUTH AND SPIT AFTER EACH USE Inhalation Taking Roflumilast 500 MCG Tablet Oral Taking Albuterol Sulfate HFA 108 (90 Base) MCG/ACT Aerosol Solution INHALE 1 TO 2 PUFFS BY MOUTH EVERY 4 TO 6 HOURS NEEDED FOR DIFFICULT BREATHING Inhalation Taking traZODone HCl 100 MG Tablet TAKE 1 TABLET BY MOUTH AT BEDTIME Orally bedtime Taking Naloxone HCl 4 MG/0.1ML Liquid CALL [...] TABLET BY MOUTH EVERY DAY Oral Taking Baclofen 10 MG Tablet 1 tablet as needed Orally Twice a day Taking HYDROcodone-Acetaminophen 7.5-325 MG Tablet 1 tablet as needed Orally every 6 hrs UnknownFluconazole 150 MG Tablet 1 tablet Orally daily traMADol HCl 50 MG Tablet 1 tablet as needed Orally 3 times a day Sucralfate 1 GM Tablet Oral Ibuprofen 600 MG Tablet 1 tablet with food or milk as needed Orally Three times a day Medication List reviewed and reconciled with the patientUnknown Fluconazole 150 MG Tablet 1 tablet Orally daily Unknown traMADol HCl 50 MG Tablet 1 tablet as needed Orally 3 times a day Unknown Sucralfate 1 GM Tablet Oral Unknown Ibuprofen 600 MG Tablet 1 tablet with food or milk as needed Orally Three times a day Medication List reviewed and reconciled with the patient * Allergies: B actrimPremarinno[Allergies Verified] Objective: * Vitals: I nhaled Oxygen Flow Rate (L/min):2, BP:96/60mm Hg, HR:88/min, RR:18/min, Temp:97.8F, Oxygen sat %:97%, PPS:40%, Pain scale:40-10, PX:>6. * Examination: G eneral Examination: GENERAL APPEARANCE: a lert, well hydrated, in no distress, calm and relaxed. DISTRESS: N one . PSYCH: Oriented, cognitive function intact, cooperative with exam, judgement and insight good. EYES: W NL. ENMT: P oor Dentition, chronic tooth problems. CV: r hythm regular, no edema . RESP: d iminished breath sounds throughout, oxygen at 2L via nasal cannula continuous . GI: b owel sounds present, soft, nontender, nondistended.? : D eferred. MUSCULOSKELETAL: G eneralized Weakness, pain in right hip and right leg, no swelling or deformity. SKIN: W NL. NEUROLOGIC: a lert and oriented, , cooperative with exam.? Assessment: * Assessment: 1. C OPD, severe - J44.9 (Primary) 2 . S ciatica, right side - M54.31 3 . E ncounter for palliative care - Z51.5 4 . S leep disturbance - G47.9 Plan: * Treatment: 2. S ciatica, right side Refill Baclofen Tablet, 10 MG, 1 tablet as needed, Orally, Twice a day, 30 days, 60, Refills 0.? Notes: May continue to use baclofen as needed for right leg pain related to sciatica. She can also continue narco that she has. Discussed with patient the importance of following up with her primary care provider as this is a new problem and additional work up is needed. She declined a new order for physical therapy 3. E ncounter for palliative care Clinical Notes: Patient is alert and oriented and able to make her own medical decisions. She is choosing palliative care for COPD. Nurse practitioner to monitor for decline transition to hospice appropriate. Patient is not a candidate for hospice at this time. 4. S leep disturbance Refill traZODone HCl Tablet, 100 MG, TAKE 1 TABLET BY MOUTH AT BEDTIME, Orally, bedtime, 30 days, 30, Refills 0. * Procedure Codes: 1 123F ACP Documented - [id number] Doc neg eld [id number] ACP DISCUSS/DSCN MKR [id number] ELDER MALTX SCR DOC NEG NO F/U [...] pain in right leg. Patient also has [place] PRN.. T obacco Use T obacco Counseling not done N onsmoker. D ementia C aregiver education and support provided N o, R dakota N /a. * Follow Up: 4 Weeks (Reason: COPD) Care Plan: * Problems: * Billing Information: * Visit Code: 46388 Subsequent Home Care 3 (40 mins). G0318 Prolonged Additional 15 Min. 32099 1st 30 mins Advance Care Planning. 17984 Subsequent Home Care 4 (60 mins). * Procedure Codes: 1123F ACP Documented - Non-billable. G8734 Doc neg eld req. 1123F ACP DISCUSS/DSCN MKR DOCD. G8734 ELDER MALTX SCR DOC NEG NO F/U RQR. Care Plan Details* * Sign off status: Completed true * Provider: Marylu FINNEY APN Date: 0 04/05/2024 Generated for Vicky garcia/Glenda/Channingitting on: 0 05/19/2024 01:54 PM EDT History and Physical Notes * HPI (History of Present Illness) Category Sub-Category Detail Notes Category Not es Palliative Care Advance care planning Goals of c are discussion with patient and significant other. POLST form completed and updated in chart. Discussed for 40 minutes. Patient discussed desire to have CPR but does not want intubation. We discussed that with this POLST form and not being a DNR intubation was an option. We discussed what this meant and she was ok with having this as an option but I don't want to be on a machine if there is no hope . I discussed with her that that this is something that she should discuss with her family. She and her significant other verbalized understanding. Follow Up Visit Home, follow up visit for 68 year-old white female presenting for follow up palliative care visit and transition of care to new nurse practitioner. COPD: under the care of histologist. Currently on continuous 02@ 2L. She is to go up to 3L with activity but rarely does due to the area of the house where her concentrator is. She is on a maintenance inhaler and oral medication for her COPD. Sciatica: this has been an issue for about 2-3 months. Pain is in right hip and down right leg to calf. She has been taking narco and baclofen for the pain prescribed by previous provider. She states that the muscle relaxer has helped with calf pain. Pain gets down to 3/10 in right hip with pain medication. She takes 1-2 tabs of norco on average daily. She does state that on some days pain is up to 10/10 and she is not able to function well. She has not had any follow up with her PCP for this nor has she had any imaging. She has also taken a course of steroids that she says has helped in the past for a short period of time. She has another burst that she plans to take that was given to her by the previous provider. She is aware that the steroid is a temporary relief and not addressing the root cause of the issues. She declined physical therapy stating that she [...] no distress, calm and relaxed EYES: WNL ENMT: Poor Dentition, media buyer akash tooth problems CV: rhythm regular, no e cynthia RESP: diminished breath so unds throughout, oxygen at 2L via nasal cannula continuous GI: bowel sounds present , soft, nontender, nondistended NEUROLOGIC: alert and oriented, , cooperative with exam SKIN: WNL MUSCULOSKELETAL: Generalized Weakness , pain in right hip and right leg, no swelling or deformity PSYCH: Oriented, cognitive function intact, cooperative with exam, judgement and insight good DISTRESS: None : Deferred
--- OUTSIDE RECORDS SUMMARY | 2024-05-19 12:54 | XMS_ITS | Clinical Summary ---
Author Organization [facility] [employer] Address [address] [place] [address] Care Team Providers Care Welfare Investigator Name Role Phone Bhavik Sloan MD Primary Care Provider [phone] Source Comments [facility] [employer],non-owned Affiliates and Associated Physician Practices is amultiple site organization consisting of ambulatory clinics and hospital sitesin [place], [place], [place] and [place]. This disclosure is being madepursuant to the Care Everywhere program and may not contain all information available regarding this patient. Last updated 17.[facility] [employer] Allergies No known active allergies Medications * Be aware that medications may not be up to date on this document. Alwaysverify current medications with the patient. Medication Sig Dispensed Refills Start Date End Date Status HYDROcodone-acetaminophe n (NORCO) 5-325 MG tablet Take 1 tablet by mouth every 4 hours as needed for Pain Active iron polysaccharides (NIFEREX 150) 150 MG capsule Take 150 mg by mouth once daily Active pantoprazole EC (PROTONIX) 40 MG tablet Take 40 mg by mouth once daily Active magnesium oxide (MAG-OX) 400 MG tablet Take 400 mg by mouth once daily Active tiotropium (SPIRIVA) 18 MCG inhalation capsule Inhale 1 capsule by mouth once daily Active levalbuterol (XOPENEX) 45 MCG/ACT inhaler Inhale 2 puffs by mouth every 6 hours Active Active Problems Problem Noted Date Diagnosed Date HCAP (healthcare-associated pneumonia) 8 Social History Tobacco Use Types Packs/Day Years Used Date Smoking Tobacco: Former Smokeless Tobacco: Never Comments:quit middle July 2017 Alcohol Use Standard Drinks/Week Comments No 0 (1 standard drink = 0.6 oz pur e alcohol) Sex and Gender Information Value Date Recorded Sex Assigned at Not on file Gender Identity Not on file Sexual Orientation Not on file Last Filed Vital Signs Vital Sign Reading Time Taken Comments Blood Pressure 139/67 09/22/2017 11:11 AM CDT Pulse 92 09/22/2017 4:22 PM CDT Temperature 36.8 C (98.2 F) 09/22/2017 11:11 AM CDT Respiratory Rate 18 09/22/2017 4:22 PM CDT Oxygen Saturation 95% 09/22/2017 4:22 PM CDT Inhaled Oxygen Concentration 32% 09/21/2017 1 :12 AM CDT Weight 65.8 kg (145 lb) 09/20/2017 11:11 AM CDT Height 160 cm (5' 3 ) 09/20/2017 11:11 AM CDT Body Mass Index 25.69 09/20/2017 11:11 AM CDT Plan of Treatment Health Maintenance Due Date Last Done Comments BONE DENSITY TESTING 1955 COLOGUARD (AGES 45-75) - COL ON CA SCREENING 1955 COLON MONITORING 1955 COLONOSCOPY - COLON CA SCREENING 1955 CT COLONOGRAPHY - COLON CA SCREENING 1955 Colorectal Cancer Screening 1955 FIT - COLON CA SCREENING 1955 FLEX SIG - COLON CA SCREENING 1955 LIPID TESTING 1955 MAMMOGRAM 1955 MEDICARE AWV 12 MONTHS 1955 DTAP/TDAP/TD VACCINES (1 - Tdap) 1976 PNEUMOCOCCAL VACCINE 50+ (1 of 1 - PCV) 11/05/2007 ZOSTER VACCINE (1 of 2) 11/05/2007 COVID-19 VACCINE ( - 2023-2 5 season) 2023 INFLUENZA VACCINE (#1) 2023 DEPRESSION SCREENING 03/02/2024 Respiratory Syncytial Virus (RSV) Vaccine Pt: or over 60 yrs (1 - 1-dose 75+ series) 2032 HEPATITIS C SCREENING Completed 09/20/2017 HEPATITIS B VACCINE Aged Out No longe r eligible based on patient's age to complete this topic HIB VACCINE Aged Out No longer eligi ble based on patient's age to complete this topic HPV VACCINE Aged Out No longer eligi ble based on patient's age to complete this topic MENINGOCOCCAL (Group B) VACC INE SHARED DECISION-MAKING Aged Out No longer eligibl e based on patient's age to complete this topic MENINGOCOCCAL GROUPS A/C/Y/W VACCINE Aged Out No longer eligible b ased on patient's age to complete this topic Procedures Procedure Name Priority Date/Time Associated Diagnosis Comments HEPATITIS C AB SCREEN RFLX NAAT QUANT STAT 09/20/2017 12:59 PM CDT from Last 3 Months or Most Recently Relevant to Health Maintenance Results * HEPATITIS C AB SCREEN RFLX PCR QUANT (09/20/2017 12:59 PM CDT) Hepatitis C Antibody Non-react waldemar Non-reac tive 09/20/2017 1:51 PM CDT [facility] Comment: Hepatitis C Antibody screen indicates no serologic evidence of past or current infection with Hepatitis C Virus. Patients with unexplained liver disease who are immunocompromised or suspected of having acute Hepatitis C infection may benefit from Nucleic Acid Test (GAIL) for Hepatitis C Viral RNA to confirm Hepatitis C status. Blood BLOOD SPECIMEN / Unknown Venipuncture / Unknown 09/20/2017 12:59 PM CDT 09/20/2017 1:05 PM CDT Jacqueline Neri MD LAB - CHEMISTRY [place] Organization Address City/State/ZIP Co de Phone Number [address] [phone] from Last 3 Months or Most Recently Relevant to Health Maintenance Advance Directives * Full Code (Latest Code Status on File) Date Activated Date Inactivated Comments 09/20/2017 9:19 PM 09/22/2017 7:56 PM Care Teams Welfare Investigator Relationship Specialty Start Date End Date Bhavik Sloan MD [address] [place] [id number] PCP - General Family Medicine 09/20/17
[2024-05-21 19:34] LABS: Campylobacter Group NOT DETECTED (NOT DETECTED); Norovirus GI/GII NOT DETECTED (NOT DETECTED); Rotavirus A NOT DETECTED (NOT DETECTED); Salmonella species NOT DETECTED (NOT DETECTED); Shiga Toxin 1 NOT DETECTED (NOT DETECTED); Shigella Species NOT DETECTED (NOT DETECTED); Vibrio Group NOT DETECTED (NOT DETECTED); Yersinia Enterolytica NOT DETECTED (NOT DETECTED)
== END 2024-05-19 12:29 | disposition home or self-care (01) ==
LOC: ANHLAB 12:29
PROVIDERS: PCP Internal Medicine; Visit Provider Internal Medicine
DX: R10.0 Acute abdomen (principal)
CPT/HCPCS: 87506